=== PATIENT | male | born 1970 | race Caucasian/White ===

== ENCOUNTER 2025-01-18 17:02 | Emergency (ER) | payer OTHER, SELFPAY ==
[2025-01-18 17:11] VITALS: BP 187/131; PULSE 90; RESP 16; TEMP 36.4; O2SAT 98
--- NOTE | 2025-01-18 17:16 | ED_ITS ---
HPI - Extremity Injury (Upper) General Chief Complaint: Extremity Injury, Upper Stated Complaint: right arm pain Time Seen by Provider: 01/18/25 17:16 Source: patient, RN notes reviewed and old records reviewed Mode of arrival: ambulatory Limitations: no limitations History of Present Illness HPI narrative: Patient presents with complaints of right upper extremity pain that has been present for least 1 month. He has been trying to get into his doctor to get a rheumatology referral, has an appointment sometime next week. He reports that pain is becoming unbearable. He denies any recent injury or trauma. He does have some swelling to the right elbow and the right hand. He reports that he is taking more Tylenol than recommended each day for the past month. He does have a history of hypertension, he reports that he took all of his blood pressure medications today. Blood pressure is extremely elevated. He denies any dizziness, chest pain, shortness of breath. Related Data Home Medications ?Medication ?Instructions ?Recorded ?Confirmed ?Last Taken ?Type losartan 100 mg tablet 100 mg PO DAILY 08/04/24 Unknown History acetaminophen 650 mg 1,950 mg PO Q8H PRN pain 01/18/25 01/18/25 01/18/25 History tablet,extended release (Tylenol Arthritis Pain) allopurinol 300 mg tablet mg 01/18/25 Unknown History amlodipine 10 mg tablet mg 01/18/25 Unknown History amlodipine 5 mg tablet mg 01/18/25 Unknown History dapagliflozin propanediol 10 mg mg 01/18/25 Unknown History tablet (Farxiga) pramipexole 0.25 mg tablet mg 01/18/25 Unknown History Allergies Allergy/AdvReac Type Severity Reaction Status Date / Time No Known Allergies Allergy Verified 01/18/25 17:10 Review of Systems Review of Systems: All systems reviewed & are unremarkable except as noted in HPI and below Constitutional: Constitutional: Reports no additional constitutional complaints ENT: Reports system reviewed and no additional complaints, except as documented Cardiovascular: Cardiovascular: Reports no additional cardiovascular complaints Respiratory: Respiratory: Reports no additional respiratory complaints Gastrointestinal: Gastrointestinal: Reports no additional gastrointestinal complaints Musculoskeletal: Musculoskeletal: Reports no additional musculoskeletal complaints and Reports as per HPI [facility] Past Medical History Medical History GERD (gastroesophageal reflux disease) Cancer Arthritis Anxiety Family History Family History Father Pancreatic cancer Mother Brain cancer Social History Social History Smoking status: Unknown if ever smoked Alcohol intake: current Alcohol use details: 2-4 drinks every other month Substance use: current Substance use type: marijuana Do You Feel Safe in your Home?: Yes Lack of Transportation: No Lack of Food: Never True Current Housing: I Have Housing Concerned About Future Housing: No Difficulty Paying Gas/Electric Bills: No Difficulty Paying for Meds: No Currently Unemployed: No Education: Trade/Vocational Certificate Difficulty w/ Childcare or Family Care: No Comments At the time of my signature, I reviewed and agree with the nursing past medical, surgical, social, and family history. There is no relevant family history pertinent to the patient complaint. Exam Const: General: cooperative, no acute distress, alert and awake Orientation/consciousness: oriented to person, oriented to place and oriented to time HENMT: Head: normal to inspection Resp: Effort & Inspection: normal respiratory effort and able to speak in complete sentences Auscultation: clear to auscultation bilaterally, no crackles, no rales, no rhonchi and no wheezes Cardio: Palpation: normal PMI Rate: regular rate Rhythm: regular rhythm Heart sounds: S1 normal heart sound present and S2 normal heart sound present Neuro: General: oriented to person, oriented to place and oriented to time Cranial nerves: Yes CN's II-XII intact bilaterally Extrem: Right upper extremity: full ROM, elbow/forearm swelling of the olecranon and Extremity exam: right hand swelling of the dorsal hand Psych: Appearance: grossly normal Thought process: Normal thought process present Insight: Good insight present (Psych) Judgement: Good judgement present (Psych) Course Course Level of Care: Express Care Visit Vital Signs Vital signs: Vital Signs Temperature 97.6 F 01/18/25 17:11 Pulse Rate 90 01/18/25 17:11 Respiratory Rate 16 01/18/25 17:11 Blood Pressure 187/131 H 01/18/25 17:11 Pulse Oximetry 98 01/18/25 17:11 Oxygen Delivery Room Air 01/18/25 17:11 Temperature 97.6 F 01/18/25 17:11 Pulse Rate 90 01/18/25 17:11 Respiratory Rate 16 01/18/25 17:11 Blood Pressure 187/131 H 01/18/25 17:11 Pulse Oximetry 98 01/18/25 17:11 Oxygen Delivery Room Air 01/18/25 17:11 Reviewed Transfer Transfered to: [facility] Transportation: Other (Private vehicle, declines EMS) Transfer rationale: Hypertensive crisis Accepting physician: Josef VÁSQUEZ - Extremity Injury (Upper) MDM Narrative Medical decision making narrative: Patient with critically high blood pressure. Advised to go to emergency department. He is agreeable to doing so Discharge Plan Discharge Clinical Impression: Hypertensive crisis Upper extremity pain Qualifiers: Laterality: right Qualified Code(s): M79.601 - Pain in right arm Patient Disposition: Acute Care Hospital Condition: Stable Instructions: Antibiotic Form Patient Language: Italian Prescriptions: No Action amlodipine 5 mg tablet amlodipine 10 mg tablet pramipexole 0.25 mg tablet allopurinol 300 mg tablet dapagliflozin propanediol [Farxiga] 10 mg tablet losartan 100 mg tablet 100 mg PO DAILY Follow-up/Referrals: Diaz,MD Rob [Primary Care Provider] - Time of Disposition: 18:00
[2025-01-18 17:49] VITALS: BP 212/114; PULSE 90
[2025-01-18 17:50] VITALS: BP 204/100
== END 2025-01-18 18:07 | disposition short-term general hospital (02) ==
PROVIDERS: Emergency Provider Nurse Practitioner Family; PCP Internal Medicine
DX: I16.9 Hypertensive crisis, unspecified (principal); M79.601 Pain in right arm; K21.9 Gastro-esophageal reflux disease without esophagitis; M19.90 Unspecified osteoarthritis, unspecified site; Z85.9 Personal history of malignant neoplasm, unspecified
CPT/HCPCS: 99212; G0463

== ENCOUNTER 2025-01-18 18:34 | Emergency (ER) | payer OTHER, SELFPAY ==
[2025-01-18 18:50] VITALS: BP 187/117; PULSE 95; RESP 16; TEMP 36.7; O2SAT 99
--- NOTE | 2025-01-18 22:02 | PC.NURSE ---
Pt called multiple times to come back to a room with no answer.
--- OUTSIDE RECORDS SUMMARY | 2025-01-18 22:15 | XMS_ITS | Clinical Summary ---
Author Organization [address] Address [address] [place] [address] Care Team Providers Care Timekeeping Supervisor Name Role Phone Rob Perales MD Primary Care Provider + [phone] Allergies No known active allergies Medications carvediloL (COREG) 6.25 mg tablet Take 1 tablet (6.25 mg total) by mouth 2 (two) times a day with meals 180 tablet 3 4 03/03/20 25 Active atorvastatin (LIPITOR) 10 mg tablet Take 1 tablet (10 mg total) by mouth daily Active indomethacin (INDOCIN) 50 mg capsule Take 1 capsule (50 mg total) by mouth 2 (two) times a day as needed Active cholecalciferol (VITAMIN D-3) 5,000 unit capsule Take by mouth Active Viagra 100 mg tablet Take 1 TABLET 1 HOUR PRIOR TO SEXUAL ACTIVITY DIRECTED, BUT NOT TO EXCEED MORE THAN 1 IN 24 HOURS. MUST LAST 30 DAYS 8 Active tamsulosin (FLOMAX) 0.4 mg extended release capsuleIndicatio ns:Urolithiasis Take 1 capsule (0.4 mg total) by mouth daily 90 capsule 1 4 Active Additional Information Patient taking differently:0.4 mg oralAs needed, Indications: Urolithiasis, Reported on 09/03/2024 omega 3-tjy-mmr-fish oil (Fish OiL) 1,000 mg (120 mg-180 mg) capsule Take 2 capsules every day by oral route. 1 Active nortriptyline (PAMELOR) 25 mg capsule Take 1 capsule (25 mg total) by mouth nightly 30 capsule 5 4 Active losartan (COZAAR) 100 mg tablet Take 1 tablet (100 mg total) by mouth every morning 4 Active pramipexole (MIRAPEX) 0.25 mg tablet Take 1 tablet (0.25 mg total) by mouth daily 30 tablet 6 4 Active allopurinoL (ZYLOPRIM) 300 mg tablet Take 1 tablet (300 mg total) by mouth daily 90 tablet 3 4 09/03/20 25 Active dapagliflozin propanediol (FARXIGA) 10 mg tablet Take 1 tablet (10 mg total) by mouth daily 90 tablet 3 4 Active amLODIPine (NORVASC) 10 mg tablet Take 1 tablet (10 mg total) by mouth daily 90 tablet 3 4 09/17/20 25 Active Active Problems Problem Noted Date Diagnosed Date Solitary pulmonary nodule 07/30/2024 Cigarette nicotine dependence in remission 07/30 History of renal cell carcinoma 07/30/2024 Obstructive sleep apnea 07/30/2024 Periodic limb movement 07/30/2024 Renal cell carcinoma 04/29/2015 Overview (03/14/2018): Description: S/P Left Partial Nx 07/13/2014 - Clear Cell Type Gr II, 4.3 cm, (-)margins Encounters Date Type Department Care Team Description 12/04/2024 Telephone [facility] Nephrology at [place] [id number] [facility] [address] [place] [address] Kenneth Crowe MD 10/27/2024 Orders Only [facility] Neurology [address] [place] [address] [address] [place] [address] Esvin Means Si, MD 10/26/2024 Telephone [facility] Neurology [address] [place] [address] [address] [place] [address] Lenard Smith MD Medication Problem 10/19/2024 Telephone [facility] Neurology [address] [place] [address] [address] [place] [address] Lenard Smith MD from Last 3 Months Medical History Medical History Date Comments Personal history of other di seases of the musculoskeletal system and connective tissue Personal history of arthriti s - (Added by TW Conv) Personal history of other en docrine, nutritional and metabolic disease Personal history of gout - (Added by TW Conv) Personal history of urinary infection History of urinary tract infection - (Added by TW Conv) Family History Medical History Relation Name Comments Cancer Mother Family history of malignant neoplasm - (Added by TW Conv) Relation Name Status Comments Mother Social History Tobacco Use Types Packs/Day Years Used Date Smoking Tobacco: Former Passive Smoke Exposure: Never Smokeless Tobacco: Never Tobacco Cessation:Counseling Given: Not Answered AUDIT-C Answer Date Recorded Q1: How often do you have a drink containing alc ohol? Monthly or less 09/03/2024 Average Number of Drinks Not on file 024 Frequency of Binge Drinking Not on file 01/2024 Sex and Gender Information Value Date Recorded Sex Assigned at Not on file Legal Sex Male 9:59 AM [employer] Gender Identity Male 03/24/2024 2:50 PM CDT Sexual Orientation Straight 03/24/2024 2: 50 PM CDT Obstetrics History Last Filed Vital Signs Vital Sign Reading Time Taken Comments Blood Pressure 205/110 09/03/2024 11:33 AM CDT Pulse 73 09/03/2024 10:45 AM CDT Temperature 36.6 C (97.9 F) 09/03/2024 10:45 AM CDT Respiratory Rate 18 07/30/2024 2:26 PM CDT Oxygen Saturation 97% 07/30/2024 2:26 PM CDT Inhaled Oxygen Concentration - - Weight 90.7 kg (200 lb) 09/03/2024 10:45 AM CDT Height 175.3 cm (5' 9 ) 09/03/2024 10:45 AM CDT Body Mass Index 29.53 09/03/2024 10:45 AM CDT Plan of Treatment Health Maintenance Due Date Last Done Comments Colon Cancer Screening-Colonoscopy 1971 Depression Screening 1971 Hepatitis C Screening 1971 Prostate Cancer Screening-PSA 1971 DTaP/Tdap/Td Vaccine (1 - Tdap) 1982 Hepatitis B Screening 1989 Regular Well Visit/Exam 18-64 1989 Zoster Vaccine (1 of 2) 2021 Influenza Vaccine (#1) 2024 3, 09/11/2021 Pneumococcal vaccine <65 Aged Out No longer eligible based on patient's age to complete this topic Insurance [facility] Care Teams Timekeeping Supervisor Relationship Specialty Start Date End Date Rob Perales MD PCP - General Internal Medicine 03/03/24
--- OUTSIDE RECORDS SUMMARY | 2025-01-18 22:15 | XMS_ITS | Patient Health Summary ---
Author Organization [facility] Address [address] [place] [address] Care Team Providers Care Dispatcher Radioactive Waste Disposal Name Role Phone Tonya Andrade PA-C Primary Care Provider [phone] Note from [facility],non-owned Affiliates and Associated Physician Practices is amultiple site organization consisting of ambulatory clinics and hospital sitesin [place], [place], [place] and [place]. This disclosure is being madepursuant to the Care Everywhere program and may not contain all information available regarding this patient. Last updated 18.[facility] Allergies * Codeine(Skin Reactions) -Medium Criticality Medications * Be aware that medications may not be up to date on this document. Alwaysverify current medications with the patient. * DULoxetine (CYMBALTA) 30 MG capsule(Started 11/05/2017) 5 refills left * indomethacin (INDOCIN) 50 MG capsule(Started 10/03/2017) * losartan (COZAAR) 50 MG tablet(Started 10/08/2017) Take 50 mg by mouth DAILY. 12 refills left * hydroCHLOROthiazide (HYDRODIURIL) 25 MG tablet(Started 10/08/2017) 12 refills left * magnesium oxide (MAGNESIUM-OXIDE) 400 (241.3 MG) MG tablet(Started 10/08/2017) Take 400 mg by mouth DAILY. 12 refills left * Cholecalciferol (VITAMIN D3) 17185 UNITS TABS(Started 05/30/2017) Take by mouth. Active Problems Problem Noted Date Diagnosed Date Spinal stenosis of lumbar re gion with neurogenic claudication 06/06/2017 Type 2 diabetes mellitus with diabetic polyneuro ana 03/21/2017 Pain in right ankle 02/23/2016 Pain in left ankle 02/23/2016 Paresthesia of skin 02/23/2016 Social History Tobacco Use Types Packs/Day Years Used Date Smoking Tobacco: Former Cigarettes Q uit: 12/02/1994 Smokeless Tobacco: Never Alcohol Use Standard Drinks/Week Comments No 0 (1 standard drink = 0.6 oz pur e alcohol) Sex and Gender Information Value Date Recorded Sex Assigned at Not on file Gender Identity Not on file Sexual Orientation Not on file Last Filed Vital Signs Vital Sign Reading Time Taken Comments Blood Pressure 130/90 11/05/2017 11:18 AM JIGGER ARTISAN Pulse 60 11/05/2017 11:18 AM JIGGER ARTISAN Temperature 36.7 C (98 F) 11/05/2017 11:18 AM JIGGER ARTISAN Respiratory Rate 18 06/11/2017 8:03 AM CDT Oxygen Saturation 97% 06/11/2017 8:03 AM CDT Inhaled Oxygen Concentration - - Weight 94.8 kg (209 lb) 11/05/2017 11:18 AM JIGGER ARTISAN Height 177.8 cm (5' 10 ) 11/05/2017 11:18 AM JIGGER ARTISAN Body Mass Index 29.99 11/05/2017 11:18 AM JIGGER ARTISAN Procedures * BASIC METABOLIC PANEL (CALCIUM TOTAL)(Performed 06/11/2017) * CBC W AUTO DIFFERENTIAL(Performed 06/11/2017) * CBC W AUTO DIFFERENTIAL(Performed 06/11/2017) * XR ABD OBSTRUCTION SERIES 2VW(Performed 06/10/2017) * BASIC METABOLIC PANEL (CALCIUM TOTAL)(Performed 06/10/2017) * CBC W AUTO DIFFERENTIAL(Performed 06/10/2017) * CBC W AUTO DIFFERENTIAL(Performed 06/10/2017) * BASIC METABOLIC PANEL (CALCIUM TOTAL)(Performed 06/09/2017) * CBC W AUTO DIFFERENTIAL(Performed 06/09/2017) * CBC W AUTO DIFFERENTIAL(Performed 06/09/2017) * BASIC METABOLIC PANEL (CALCIUM TOTAL)(Performed 06/08/2017) * CBC W AUTO DIFFERENTIAL(Performed 06/08/2017) * CBC W AUTO DIFFERENTIAL(Performed 06/08/2017) * BASIC METABOLIC PANEL (CALCIUM TOTAL)(Performed 06/07/2017) * CBC W AUTO DIFFERENTIAL(Performed 06/07/2017) * CBC W AUTO DIFFERENTIAL(Performed 06/07/2017) * FL BENNY SURGERY(Performed 06/06/2017) * GLUCOSE ACCUCHECK(Performed 06/06/2017) * CROSSMATCH RBC LEUKOREDUCED(Performed 06/06/2017) * GLUCOSE ACCUCHECK(Performed 06/06/2017) * BASIC METABOLIC PANEL (CALCIUM TOTAL)(Performed 06/06/2017) * PTT SLH(Performed 06/06/2017) * PT-INR [facility](Performed 06/06/2017) * TYPE + SCREEN PANEL(Performed 06/06/2017) * BASIC METABOLIC PANEL (CALCIUM TOTAL)(Performed 05/30/2017) * URIC ACID BLOOD(Performed 05/30/2017) * EKG 12-LEAD(Performed 05/30/2017) * BASIC METABOLIC PANEL (CALCIUM TOTAL)(Performed 04/30/2017) * PTT [facility](Performed 04/30/2017) * PT-INR [facility](Performed 04/30/2017) * CBC W AUTO DIFFERENTIAL(Performed 04/30/2017) * ERYTHROCYTE SEDIMENTATION RATE(Performed 04/30/2017) * C-REACTIVE PROTEIN(Performed 04/30/2017) * URINALYSIS REFLEX TO MICROSCOPIC NO CULTURE(Performed 04/30/2017) * CULTURE URINE(Performed 04/30/2017) * XR KNEE RIGHT 3VW(Performed 04/30/2017) * XR CHEST 2VW(Performed 04/30/2017) * XR KNEE LEFT 3VW(Performed 04/30/2017) * CBC W AUTO DIFFERENTIAL(Performed 04/30/2017) * NEURONAL NUCLEAR ANTIBODY IGG(Performed 02/04/2017) * IMMUNOFIXATION BLOOD(Performed 02/04/2017) * PROTEIN ELECTROPHORESIS WO INTERP BLOOD(Performed 02/04/2017) * PROTEIN ELECTROPHORESIS URINE RANDOM(Performed 02/04/2017) * HEMOGLOBIN A1C(Performed 02/04/2017) * T4 FREE(Performed 02/04/2017) * VITAMIN B12(Performed 02/04/2017) * FOLATE(Performed 02/04/2017) * TSH(Performed 02/04/2017) * HEPATIC FUNCTION PANEL(Performed 02/04/2017) * XR CERVICAL SPINE 4 OR 5VW(Performed 01/30/2017) * C-REACTIVE PROTEIN(Performed 10/09/2016) * COMPREHENSIVE METABOLIC PANEL(Performed 10/09/2016) * ERYTHROCYTE SEDIMENTATION RATE(Performed 10/09/2016) * URINALYSIS REFLEX TO MICROSCOPIC NO CULTURE(Performed 10/09/2016) * CBC W AUTO DIFFERENTIAL(Performed 10/09/2016) * CULTURE URINE(Performed 10/09/2016) * CBC W AUTO DIFFERENTIAL(Performed 10/09/2016) * PROTEIN 14-3-3 BLOOD(Performed 02/27/2016) * LDH BLOOD(Performed 02/27/2016) * HEPATITIS C PCR PROGRESSIVE QL/QN(Performed 02/27/2016) * VITAMIN D 25-HYDROXY D2+D3(Performed 02/27/2016) * HEPATITIS B SURFACE ANTIGEN W RFLX CONFIRMATION(Performed 02/27/2016) * CYCLIC CITRULLINATED PEPTIDE(CCP) AB IGG(Performed 02/27/2016) * JESUS COMPREHENSIVE PLUS PROFILE(Performed 02/27/2016) * URIC ACID BLOOD(Performed 02/27/2016) * ALDOLASE(Performed 02/27/2016) * TSH HI LOW REFLEX FREE T4(Performed 02/27/2016) * CK BLOOD(Performed 02/27/2016) * CBC W AUTO DIFFERENTIAL(Performed 02/27/2016) * COMPREHENSIVE METABOLIC PANEL(Performed 02/27/2016) * ERYTHROCYTE SEDIMENTATION RATE(Performed 02/27/2016) * C-REACTIVE PROTEIN(Performed 02/27/2016) * URINALYSIS W/MICROSCOPIC NO CULTURE(Performed 02/27/2016) * VITAMIN B12 FOLATE PANEL(Performed 02/27/2016) * HLA TYPING B27(Performed 02/27/2016) * XR HAND RIGHT 3VW OR MORE(Performed 02/23/2016) * XR ELBOW LEFT 2VW(Performed 02/23/2016) * XR FOOT LEFT 3VW OR MORE(Performed 02/23/2016) * XR KNEE RIGHT 3VW(Performed 02/23/2016) * XR KNEE LEFT 3VW(Performed 02/23/2016) * XR SI JOINTS 2VW OR LESS(Performed 02/23/2016) * XR ELBOW RIGHT 2VW(Performed 02/23/2016) * XR HAND LEFT 3VW OR MORE(Performed 02/23/2016) * XR FOOT RIGHT 3VW OR MORE(Performed 02/23/2016) Results * (ABNORMAL) CBC W AUTO DIFFERENTIAL (06/11/2017 3:49 AM CDT) Only the most recent of15 resultswithin the time period is included. WBC 5.7 3.5 - 10.5 10 3/uL [facility] RBC 3.89(L) 4.30 - 5.70 10 6/uL [facility] Hemoglobin 11.4(L) 13.5 - 17.5 g/dL [facility] Hematocrit 33.0(L) 39.0 - 50.0 % [facility] MCV 84.8 81.0 - 97.0 fL [facility] MCH 29.3 28.0 - 34.0 pg [facility] MCHC 34.5 32.0 - 36.0 g/dL [facility] Platelet Count 187 150 - 400 10 3/uL [facility] RDW-SD 39.5 36.0 - 50.0 fL [facility] RDW-CV 12.9 11.2 - 14.8 % [facility] MPV 9.4 9.3 - 12.8 fL [facility] Neutrophils % 61.4 35.0 - 70.0 % [facility] Lymphocytes % 23.2 19.7 - 55.1 % [facility] Monocytes % 8.9 3.0 - 15.0 % [facility] Eosinophils % 6.1(H) 0.0 - 6.0 % [facility] Basophil % 0.4 0.0 - 1.5 % [facility] Neutrophils Absolute 3.5 1.6 - 7.0 10 3/uL [facility] Lymphocyte Absolute 1.3 0.8 - 2.9 10 3/uL [facility] Monocytes Absolute 0.51 0.14 - 0.66 10 3/uL [facility] Eosinophils Absolute 0.35(H) 0.00 - 0.22 10 3/uL [facility] Basophils Absolute 0.02 0.00 - 0.06 10 3/uL [facility] Immature Granulocytes % 0.2 0.0 - 1.0 % [facility] Blood specimen (specimen) BLOOD SPECIMEN / Unknown 06/11/2017 3:49 AM CDT 06/11/2017 4:15 AM CDT Prabhakar Otero MD LAB - HEMATOLOGY ORD ERABLES [facility] [address] [phone] * (ABNORMAL) BASIC METABOLIC PANEL (CALCIUM TOTAL) (06/11/2017 3:49 AM CDT) Only the most recent of8 resultswithin the time period is included. BUN 17 7 - 26 mg/dL [facility] Creatinine 1.4(H) 0.6 - 1.2 mg/dL [facility] Sodium 139 136 - 145 mmol/L [facility] Potassium 4.5 3.5 - 4.5 mmol/L [facility] Chloride 99 98 - 107 mmol/L [facility] CO2 29 22 - 29 mmol/L [facility] Glucose 143(H) 70 - 115 mg/dL [facility] Calcium 9.5 8.4 - 10.2 mg/dL [facility] Anion Gap 16 8 - 18 [facility] BUN/Creatinine Ratio 12 7 - 23 [facility] Osmolality Calculated 292 270 - 300 mOsm/kg [facility] eGFR 55(L) >60 mL/min/1.7 3 m2 [facility] Blood specimen (specimen) BLOOD SPECIMEN / Unknown 06/11/2017 3:49 AM CDT 06/11/2017 4:15 AM CDT Prabhakar Otero MD LAB - CHEMISTRY ADDIE FRANCES [facility] Organization Address City/State/[facility] Co de Phone Number [address] [phone] * XR ABD OBSTRUCTION SERIES 2VW (06/10/2017 9:29 AM CDT) Anatomical Region Laterality Modality Abdomen Other Impressions 06/10/2017 3:50 PM CDT IMPRESSION: Nonobstructive bowel gas pattern. Moderate stool. This report was electronically signed by EMMA TOMLINSON M.D. on 06/10/2017 3:50 PM . Narrative 06/10/2017 3:50 PM CDT Exam: PX ABD OBSTRUCTION SERIES Date: 06/10/2017 9:29 AM History: constipation, abdominal distension Comparison: None FINDINGS: There is no dilatation of bowel. Moderate stool is seen in the colon. Phleboliths are seen in the pelvis. No free air. Multilevel laminectomy changes are demonstrated. There is a midline staple line. Procedure Note Emma Tomlinson MD - 02/28/2018 Exam: PX ABD OBSTRUCTION SERIES Date: 06/10/2017 9:29 AM History: constipation, abdominal distension Comparison: None FINDINGS: There is no dilatation of bowel. Moderate stool is seen in thecolon. Phleboliths are seen in the pelvis. No free air. Multilevellaminectomy changes are demonstrated. There is a midline staple line. IMPRESSION IMPRESSION: Nonobstructive bowel gas pattern. Moderate stool. This report was electronically signed by EMMA TOMLINSON M.D. on 06/10/20173:50 PM . [employer]iki [employer] DIAGNOSTIC IMAGING O RDERABLES * FL BENNY SURGERY (06/06/2017 11:08 AM CDT) Anatomical Region Laterality Modality Other Narrative 06/06/2017 11:08 AM CDT Fluoroscopy was used for this exam. Please see the Operative report. Procedure Note ProviderDolores MD - 02/28/2018 Fluoroscopy was used for this exam. Please see the Operative report. Prabhakar Otero MD FLUOROSCOPY ORDERABL ES * (ABNORMAL) GLUCOSE ACCUCHECK (06/06/2017 10:47 AM CDT) Only the most recent of2 resultswithin the time period is included. Glucose, Fingerstick 140(H) 70-115mg/d L mg/dL [facility] [place]) Comment: Physician Notified Cycle Consultant: RENAY TAVERA 06/06/2017 10:4 7 AM CDT Prabhakar Otero MD LAB - CHEMISTRY ADDIE FRANCES Performing Organization Address [facility] [place]/[facility] Co de Phone Number [facility] [place]) * CROSSMATCH RBC LEUKOREDUCED (06/06/2017 6:29 AM CDT) 06/06/2017 6:29 AM CDT 06/06/2017 6:29 AM CDT Narrative [facility] - 06/06/2017 6:29 AM CDT # of Units->2 Prabhakar Otero MD LAB - BLOOD BANK ORD NANCYBLES Performing Organization Address City/[facility]/ZIP Co de Phone Number [facility] [address] * PTT [facility] (06/06/2017 6:21 AM CDT) Only the most recent of2 resultswithin the time period is included. APTT 29.3 23.0 - 38.4 Seconds [facility] Comment:Suggested therapeuti c range for full dose I.V. heparin therapy for venous thromboembolism is 66.0-91.0 seconds. Blood specimen (specimen) BLOOD SPECIMEN / Unknown 06/06/2017 6:21 AM CDT 06/06/2017 6:28 AM CDT Narrative [facility] - 06/06/2017 6:59 AM CDT Please ensure that the aPTT specimen is received in the clinical lab within 1 hour of collection if it is used for therapeutic heparin monitoring. Processing of heparinized specimens older than 1 hour may result in inaccurate test results. Is patient on Heparin, Argatroban or Dabigatran?->N Prabhakar Otero MD LAB - COAGULATION OR DERABLES Performing Organization Address City/State/[facility] Co de Phone Number [facility] [address] [place] [address] * PT-INR [facility] (06/06/2017 6:21 AM CDT) Only the most recent of2 resultswithin the time period is included. PT 14.1 12.1 - 14.8 Seconds [facility] INR 1.1 See Comment [facility] Comment: Suggested therapeutic range for low-intensity coumadin therapy for venous thromboembolism prophylaxis is an INR of 2.0-3.0. For high risk patients (Mitral Valve Prosthesis, Atrial Fibrillation, history of TIA/stroke), suggested prophylactic therapeutic range is an INR of 2.5-3.5. Blood specimen (specimen) BLOOD SPECIMEN / Unknown 06/06/2017 6:21 AM CDT 06/06/2017 6:28 AM CDT Narrative [facility] - 06/06/2017 6:58 AM CDT Is patient on Heparin, Argatroban or Dabigatran?->N Prabhakar Otero MD LAB - COAGULATION OR DERABLES Performing Organization Address City/[facility]/ZIP Co de Phone Number [address] [phone] * TYPE + SCREEN PANEL (06/06/2017 6:20 AM CDT) Typem O POS [facility] Antibody Screen NEG [facility] Blood specimen (specimen) 06/06/2017 6:20 AM CDT 06/06/2017 6:28 AM CDT Prabhakar Otero MD LAB - BLOOD BANK ORD ERABLES Performing Organization Address [facility] [place]/[facility] Co de Phone Number [facility] [address] [place] [address] * (ABNORMAL) URIC ACID BLOOD (05/30/2017 3:21 PM CDT) Only the most recent of2 resultswithin the time period is included. Uric Acid 11.4(H) 2.6 - 7.2 mg/dL [facility] Blood specimen (specimen) BLOOD SPECIMEN / Unknown 05/30/2017 3:21 PM CDT 05/30/2017 5:08 PM CDT Bob Pressley MD LAB - CHEMISTRY ADDIE FRANCES Performing Organization Address [facility] [place]/[facility] Co de Phone Number [address] [phone] * EKG 12-LEAD (05/30/2017 12:00 AM CDT) 05/30/2017 Lenard Calix MD ECG ORDERABLES Performing Organization Address [facility] [place]/[facility]/ZIP Co de Phone Number [facility] * (ABNORMAL) URINALYSIS REFLEX TO MICROSCOPIC NO CULTURE (04/30/2017 2:48 PM CDT) Only the most recent of2 resultswithin the time period is included. Color UA Yellow Straw, Yellow, Colorless, Light Yellow [facility] Clarity UA Clear Clear [facility] Specific [place] UA 1.016 1.001 - 1.030 [facility] pH UA 5.0 5.0 - 8.0 [facility] Protein UA Negative <=20 mg/dL [facility] Glucose UA Negative Negative mg/dL [facility] Ketone UA Negative Negative mg/dL [facility] Bilirubin UA Negative Negative mg/dL [facility] Blood UA Negative Negative [facility] Nitrite UA Negative Negative [facility] Leukocyte Esterase Negative Negative [facility] Urobilinogen UA <2.0 <2.0 mg/dL [facility] RBC UA 1 0 - 8 /HPF [facility] WBC UA 1 0 - 2 /HPF [facility] Mucus UA Few(A) None /LPF [facility] Urine specimen (specimen) URINE SPECIMEN OBTAINED BY CLEAN CATCH PROCEDURE / Unknown 04/30/2017 2:48 PM CDT 04/30/2017 3:37 PM CDT Bob Pressley MD LAB - URINALYSIS ORD ERABLES Performing Organization Address City/[facility]/ZIP Co de Phone Number [address] [phone] * (ABNORMAL) C-REACTIVE PROTEIN (04/30/2017 2:48 PM CDT) Only the most recent of3 resultswithin the time period is included. C-Reactive Protein 2.8(H) <=0.5 mg/dL [facility] Blood specimen (specimen) BLOOD SPECIMEN / Unknown 04/30/2017 2:48 PM CDT 04/30/2017 3:37 PM CDT Bob Pressley MD LAB - CHEMISTRY ORDE RABKIM [address] [phone] * CULTURE URINE (04/30/2017 2:48 PM CDT) Only the most recent of2 resultswithin the time period is included. Culture Urine <10,000 CFU/ML urogenital doe [facility] Comment: Urine specimen (specimen) URINE / Unknown 04/30/2017 2:48 PM CDT 04/30/2017 3:35 PM CDT Narrative [facility] - 05/02/2017 9:23 AM CDT Specimen Type->Urine Bob Pressley MD LAB - MICROBIOLOGY O RDERABLES Performing Organization Address [facility] [place]/[facility]/ZIP Co de Phone Number [address] [phone] * ERYTHROCYTE SEDIMENTATION RATE (04/30/2017 2:48 PM CDT) Only the most recent of3 resultswithin the time period is included. Erythrocyte Sedimentation Rate Westergren 5 0 - 15 MM/HR [facility] Blood specimen (specimen) BLOOD SPECIMEN / Unknown 04/30/2017 2:48 PM CDT 04/30/2017 3:37 PM CDT Bob Pressley MD LAB - HEMATOLOGY ORD ERABLES Performing Organization Address [facility] [place]/[facility] Co de Phone Number [address] [phone] * XR KNEE RIGHT 3VW (04/30/2017 2:48 PM CDT) Only the most recent of2 resultswithin the time period is included. Anatomical Region Laterality Modality Lower Extremity Other Impressions 05/01/2017 4:50 PM CDT Impression: 1. Mild osteoarthritis in both knees, left greater than right, not significantly progressed. Left knee effusion. Report dictated by Cristiane Davis MD. (Vocational Technical Education Director). This report was approved by Cristiane Davis M.D. on 05/01/2017 1:53 PM . I, Dr. JOHN SAGE MD have personally reviewed and interpreted this examination/study. This report was electronically signed by JOHN SAGE MD on 05/01/2017 4:50 PM . Narrative 05/01/2017 4:50 PM CDT Exam: XR KNEE RIGHT 3 VW, XR KNEE LEFT 3 VW Date: 04/30/2017; 2:48 PM History: 46-year-old male with joint pains. Comparison: Right and left knee radiographs from 02/23/2016. Findings: RIGHT KNEE: No acute fracture or dislocation is seen. Minimal tricompartment degenerative change is seen without joint space narrowing and mild. There is mild spurring of the tibial spines. There is minimal patellofemoral osteophyte formation. No erosions are seen. Bone density is normal. There is no effusion. LEFT KNEE: No acute fracture or dislocation is present. There are mild degenerative change in the patellofemoral compartment with small osteophyte formation, but no joint space narrowing. The medial and lateral compartment joint spaces are normal. Bone density is normal. No erosions are seen. A small superior patellar enthesophyte is present. A moderate effusion is present. Procedure Note John Sage MD - 02/28/2018 Exam: XR KNEE RIGHT 3 VW, XR KNEE LEFT 3 VW Date: 04/30/2017; 2:48 PM History: 46-year-old male with joint pains. Comparison: Right and left knee radiographs from 02/23/2016. Findings: RIGHT KNEE: No acute fracture or dislocation is seen. Minimal tricompartmentdegenerative change is seen without joint space narrowing and mild. Thereis mild spurring of the tibial spines. There is minimal patellofemoralosteophyte formation. No erosions are seen. Bone density is normal. There is no effusion. LEFT KNEE: No acute fracture or dislocation is present. There are mild degenerativechange in the patellofemoral compartment with small osteophyte formation,but no joint space narrowing. The medial and lateral compartment jointspaces are normal. Bone density is normal. No erosions are seen. A small superior patellar enthesophyte ispresent. A moderate effusion is present. IMPRESSION Impression: 1. Mild osteoarthritis in both knees, left greater than right, notsignificantly progressed. Left knee effusion. Report dictated by Cristiane Davis MD. (Vocational Technical Education Director). This report was approved by Cristiane Davis M.D. on 05/01/2017 1:53 PM. I, Dr. JOHN SAGE MD have personally reviewed and interpreted thisexamination/study. This report was electronically signed by JOHN SAGE MD on 05/01/20174:50 PM . Bob Pressley MD DIAGNOSTIC IMAGING O RDERABLES * XR KNEE LEFT 3VW (04/30/2017 2:48 PM CDT) Only the most recent of2 resultswithin the time period is included. Anatomical Region Laterality Modality Lower Extremity Other Impressions 05/01/2017 4:50 PM CDT Impression: 1. Mild osteoarthritis in both knees, left greater than right, not significantly progressed. Left knee effusion. Report dictated by Cristiane Davis MD. (Vocational Technical Education Director). This report was approved by Cristiane Davis M.D. on 05/01/2017 1:53 PM . I, Dr. JOHN SAGE MD have personally reviewed and interpreted this examination/study. This report was electronically signed by JOHN SAGE MD on 05/01/2017 4:50 PM . Narrative 05/01/2017 4:50 PM CDT Exam: XR KNEE RIGHT 3 VW, XR KNEE LEFT 3 VW Date: 04/30/2017; 2:48 PM History: 46-year-old male with joint pains. Comparison: Right and left knee radiographs from 02/23/2016. Findings: RIGHT KNEE: No acute fracture or dislocation is seen. Minimal tricompartment degenerative change is seen without joint space narrowing and mild. There is mild spurring of the tibial spines. There is minimal patellofemoral osteophyte formation. No erosions are seen. Bone density is normal. There is no effusion. LEFT KNEE: No acute fracture or dislocation is present. There are mild degenerative change in the patellofemoral compartment with small osteophyte formation, but no joint space narrowing. The medial and lateral compartment joint spaces are normal. Bone density is normal. No erosions are seen. A small superior patellar enthesophyte is present. A moderate effusion is present. Procedure Note John Sage MD - 02/28/2018 Exam: XR KNEE RIGHT 3 VW, XR KNEE LEFT 3 VW Date: 04/30/2017; 2:48 PM History: 46-year-old male with joint pains. Comparison: Right and left knee radiographs from 02/23/2016. Findings: RIGHT KNEE: No acute fracture or dislocation is seen. Minimal tricompartmentdegenerative change is seen without joint space narrowing and mild. Thereis mild spurring of the tibial spines. There is minimal patellofemoralosteophyte formation. No erosions are seen. Bone density is normal. There is no effusion. LEFT KNEE: No acute fracture or dislocation is present. There are mild degenerativechange in the patellofemoral compartment with small osteophyte formation,but no joint space narrowing. The medial and lateral compartment jointspaces are normal. Bone density is normal. No erosions are seen. A small superior patellar enthesophyte ispresent. A moderate effusion is present. IMPRESSION Impression: 1. Mild osteoarthritis in both knees, left greater than right, notsignificantly progressed. Left knee effusion. Report dictated by Cristiane Davis MD. (Vocational Technical Education Director). This report was approved by Cristiane Davis M.D. on 05/01/2017 1:[address] JOHN Salmon MD have personally reviewed and interpreted thisexamination/study. This report was electronically signed by JOHN SAGE MD on 05/01/20174:50 PM . Bob Pressley MD DIAGNOSTIC IMAGING O RDERABLES * XR CHEST 2VW (04/30/2017 2:48 PM CDT) Anatomical Region Laterality Modality Chest Other Impressions 05/01/2017 8:49 AM CDT IMPRESSION: No acute pulmonary process. Mild degenerative changes are seen in the thoracic spine without evidence of diffuse idiopathic skeletal hyperostosis. Report dictated by Melani Witt MD (oral and maxillofacial surgery resident). This report was approved by Selena Witt M.D. on 05/01/2017 8:[address] GOLDEN Salmon MD have personally reviewed and interpreted this examination/study. This report was electronically signed by Dr. GOLDEN FLORES MD on 05/01/2017 8:49 AM . Narrative 05/01/2017 8:49 AM CDT EXAMINATION: XR CHEST PA AND LATERAL HISTORY: Evaluate for DISH COMPARISON: No prior study is available for comparison at the time of this dictation. FINDINGS: There is no focal consolidation, pleural effusion, or pneumothorax. The cardiomediastinal silhouette is normal. Mild degenerative changes are seen in the thoracic spine without evidence of diffuse idiopathic skeletal hyperostosis. Procedure Note Golden Flores MD - 02/28/2018 EXAMINATION: XR CHEST PA AND LATERAL HISTORY: Evaluate for DISH COMPARISON: No prior study is available for comparison at the time ofthis dictation. FINDINGS: There is no focal consolidation, pleural effusion, or pneumothorax. Thecardiomediastinal silhouette is normal. Mild degenerative changes are seenin the thoracic spine without evidence of diffuse idiopathic skeletalhyperostosis. IMPRESSION IMPRESSION: No acute pulmonary process. Mild degenerative changes are seen in the thoracic spine without evidenceof diffuse idiopathic skeletal hyperostosis. Report dictated by Melani Witt MD (oral and maxillofacial surgery resident). This report was approved by Selena Witt M.D. on 05/01/2017 8:01AM . I, Dr. Dr. GOLDEN FLORES MD have personally reviewed and interpreted thisexamination/study. This report was electronically signed by Dr. GOLDEN FLORES MD on05/01/2017 8:49 AM . Bob Pressley MD DIAGNOSTIC IMAGING O RDERABLES * PROTEIN ELECTROPHORESIS WO INTERP BLOOD (02/04/2017 9:46 AM JIGGER ARTISAN) Interpretation Serum PE Normal Pattern Normal Pattern [facility] Comment: Serum protein electrophoresis shows characteristic bands corresponding to albumin, alpha and beta globulins and polyclonal immunoglobulins. No monoclonal immunoglobulins detected. Non-secretory myeloma (NSM) and light chain only myeloma cannot be excluded on the basis of this result. Recommend serum free light chain measurements for complete evaluation of multiple myeloma. Measurement of serum free kappa and lambda immunoglobulin light chains can identify all patients with light chain only myeloma and up to 70% of patients with NSM. Lucia Leija, PhD *The electrophoresis pattern and the interpretation have been reviewed and verified by the teaching physician. Protein Total 7.1 6.0 - 8.3 g/dL [facility] Albumin 4.9 3.3 - 5.6 g/dL [facility] Alpha-1 Globulins 0.2 0.1 - 0.3 g/dL [facility] Alpha-2 Globulins 0.7 0.5 - 1.0 g/dL [facility] Beta Globulins 0.7 0.6 - 1.1 g/dL [facility] Gamma Globulins 0.7 0.6 - 1.6 g/dL [facility] Blood specimen (specimen) BLOOD SPECIMEN / Unknown 02/04/2017 9:46 AM JIGGER ARTISAN 02/04/2017 10:26 AM JIGGER ARTISAN Vicky Singh MD LAB - CHEMISTRY ORDE RABKIM Performing Organization Address City/[facility]/ZIP Co de Phone Number [address] [phone] * NEURONAL NUCLEAR ANTIBODY IGG (02/04/2017 9:46 AM JIGGER ARTISAN) KEMAR IgG Immunoblot None Detected None Detected [facility] ([facility]) Comment: INTERPRETIVE INFORMATION: Neuronal Nuclear Abs IgG, Immunoblot This test detects IgG antineuronal antibodies to Hu, Ri, and Yo antigens. Only the antibodies detected are reported in the result field. Antineuronal antibodies serve as markers that aid in discriminating between a true paraneoplastic neurological disorder (PND) and other inflammatory disorders of the nervous system. Anti-Hu (antineuronal nuclear antibody, type I) is associated with small-cell lung cancer. Anti-Ri (antineuronal nuclear antibody, type II) is associated with neuroblastoma in children and with fallopian tube and breast cancer in adults. Anti-Yo (anti-Purkinje cell cytoplasmic antibody) is associated with ovarian and breast cancer. The presence of one or more of these antineuronal antibodies supports a clinical diagnosis of PND and should lead to a focused search for the underlying neoplasm. Test developed and characteristics determined by [facility]. See Compliance Statement D: [email or web address] Performed by [facility], [address] [place] [id number] [email or web address], Billy Alanis MD, Lab. Director Blood specimen (specimen) BLOOD SPECIMEN / Unknown 02/04/2017 9:46 AM JIGGER ARTISAN 02/04/2017 10:26 AM [facility]IG[facility] ARTISAN Vicky Singh MD LAB - SEROLOGY ORDER NAHUN [facility] ([place]) * IMMUNOFIXATION (02/04/2017 9:46 AM JIGGER ARTISAN) Immunofixation Serum Normal Pattern Normal Pattern [facility] Comment: Serum immunofixation electrophoresis shows polyclonal IgG, IgA, and IgM immunoglobulins. No monoclonal immunoglobulins detected. Non-secretory myeloma (NSM) cannot be excluded on the basis of this result. Measurements of serum free kappa and lambda immunoglobulin light chains can identify up to 70% of patients with NSM. Lucia Leija, PhD *The electrophoresis pattern and the interpretation have been reviewed and verified by the teaching physician. Blood specimen (specimen) BLOOD SPECIMEN / Unknown 02/04/2017 9:46 AM JIGGER ARTISAN 02/04/2017 10:26 AM JIGGER ARTISAN Vicky Singh MD LAB - CHEMISTRY ORDE RABLES Performing Organization Address [facility] [place]/[facility] Co de Phone Number [address] [phone] * PROTEIN ELECTROPHORESIS URINE RANDOM (02/04/2017 9:46 AM JIGGER ARTISAN) Interpretation Urine PE See Comment Normal Pattern [facility] Comment: Urine protein electrophoresis shows a prominent band corresponding to albumin with small amounts of other nonspecific proteinuria. No monoclonal immunoglobulins detected. Non-secretory myeloma (NSM) cannot be excluded on the basis of this result. Measurements of serum free kappa and lambda immunoglobulin light chains can identify up to 70% of patients with NSM. Lucia Leija, PhD Protein Urine 10 Not Established mg/dL [facility] Urine specimen (specimen) 02/04/2017 9:46 AM JIGGER ARTISAN 02/04/2017 10:26 AM JIGGER ARTISAN Vicky Singh MD LAB - URINE CHEMISTR Y ORDERABLES Performing Organization Address [facility] [place]/[facility]/ZIP Co de Phone Number [address] [phone] * HEMOGLOBIN A1C (02/04/2017 9:46 AM JIGGER ARTISAN) Hemoglobin A1c 6.1 4.4 - 6.3 % [facility] Estimated Average Glucose 128 mg/dL [facility] Comment: HbA1c Interpretation: Treatment target values recommended by ADA and other clinical organizations should be used to evaluate metabolic control in patients. Treatment Target Values: Normal : < 5.7% Pre-diabetes: 5.7-6.4% Diabetes: Equal to or greater than 6.5% Reference: [place] [employer] Standards of Care in Diabetes -2014 In patients 70 years and older consider HbA1c target range of 7.0-7.5% Reference: Diabetes Mellitus in Older People: Position Statement on behalf of the International Association of Gerontology and Geriatrics (IAGG), the Diabetes Working Democrat for Older People (EDWPOP), and the International Task Force of Experts in Diabetes. Yehuda Garcia, et al. J [place]. 2012 Test results diagnostic of diabetes should be repeated for confirmation. The Tosoh G8 assay for the measurement of HbA1c is a National Glycohemoglobin Standardization Program (NGSP)certified method. Results for patients with HbE disease should be interpreted with caution as this hemoglobinopathy has been shown to interfere with the Tosoh G8 assay. Blood specimen (specimen) BLOOD SPECIMEN / Unknown 02/04/2017 9:46 AM JIGGER ARTISAN 02/04/2017 10:26 AM JIGGER ARTISAN Vicky Singh MD [facility] Organization Address City/State/ZIP Co de Phone Number [address] [phone] * HEPATIC FUNCTION PANEL (02/04/2017 9:46 AM JIGGER ARTISAN) Protein Total 7.4 6.0 - 8.3 g/dL [facility]AT[facility] Albumin 4.1 3.4 - 5.0 g/dL [facility] Bilirubin Total 0.6 0.2 - 1.2 mg/dL [facility] Bilirubin Conjugated 0.2 0.0 - 0.5 mg/dL [facility] Bilirubin Unconjugated 0.4 Unconjugated Bilirubin is a calculated value: Reference ranges have not been established. mg/dL [facility] Alkaline Phosphatase 96 40 - 150 Units/L [facility] ALT 24 0 - 55 Units/L [facility] AST 29 5 - 34 Units/L [facility] Albumin/Globulin Ratio 1.2 1.1 - 2.3 [facility] Blood specimen (specimen) BLOOD SPECIMEN / Unknown 02/04/2017 9:46 AM JIGGER ARTISAN 02/04/2017 10:26 AM JIGGER ARTISAN Vicky Singh MD LAB - CHEMISTRY ADDIE FRANCES Performing Organization Address City/[facility]/ZIP Co de Phone Number [address] [phone] * FOLATE (02/04/2017 9:46 AM JIGGER ARTISAN) Folate 14.6 7.0 - 31.4 ng/mL [facility] Blood specimen (specimen) BLOOD SPECIMEN / Unknown 02/04/2017 9:46 AM JIGGER ARTISAN 02/04/2017 10:26 AM JIGGER ARTISAN Vicky Singh MD LAB - CHEMISTRY ADDIE FRANCES Performing Organization Address [facility] [place]/[facility]/ZIP Co de Phone Number [address] [phone] * VITAMIN B12 (02/04/2017 9:46 AM JIGGER ARTISAN) Vitamin B12 629 213 - 816 pg/mL [facility] Blood specimen (specimen) BLOOD SPECIMEN / Unknown 02/04/2017 9:46 AM JIGGER ARTISAN 02/04/2017 10:26 AM JIGGER ARTISAN Vicky Singh MD LAB - CHEMISTRY ADDIE FRANCES Performing Organization Address City/[facility]/ZIP Co de Phone Number [address] [phone] * TSH (02/04/2017 9:46 AM JIGGER ARTISAN) TSH 0.768 0.350 - 4.940 uIU/mL [facility] Blood specimen (specimen) BLOOD SPECIMEN / Unknown 02/04/2017 9:46 AM JIGGER ARTISAN 02/04/2017 10:26 AM JIGGER ARTISAN Vicky Singh MD LAB - CHEMISTRY ADDIE FRANCES [address] [phone] * T4 FREE (02/04/2017 9:46 AM JIGGER ARTISAN) T4 Free 1.0 0.7 - 1.5 ng/dL [facility] Blood specimen (specimen) BLOOD SPECIMEN / Unknown 02/04/2017 9:46 AM JIGGER ARTISAN 02/04/2017 10:26 AM JIGGER ARTISAN Vicky Singh MD LAB - CHEMISTRY ADDIE FRANCES [address] [phone] * XR CERVICAL SPINE 4 OR 5VW (01/30/2017 9:43 AM JIGGER ARTISAN) Anatomical Region Laterality Modality Spine Other Impressions 01/30/2017 12:59 PM JIGGER ARTISAN IMPRESSION: Mild lower cervical degenerative disc disease. This report was electronically signed by JOHN SAGE MD on 01/30/2017 12:59 PM . Narrative 01/30/2017 12:59 PM JIGGER ARTISAN Exam: XR SPINE CERVICAL 4 VW MIN History: spinal stenosis Comparison: None. Findings: There is no fracture or subluxation. Alignment is maintained on the flexion and extension views although there is limited mobility. There is mild lower cervical degenerative disc disease. There is degenerative change at the C1-C2 articulation. Procedure Note John Sage MD - 02/28/2018 Exam: XR SPINE CERVICAL 4 VW MIN History: spinal stenosis Comparison: None. Findings: There is no fracture or subluxation. Alignment is maintained on theflexion and extension views although there is limited mobility. There ismild lower cervical degenerative disc disease. There is degenerativechange at the C1-C2 articulation. IMPRESSION IMPRESSION: Mild lower cervical degenerative disc disease. This report was electronically signed by JOHN SAGE MD on 01/30/201712:59 PM . Prabhakar Otero MD DIAGNOSTIC IMAGING O RDERABLES * (ABNORMAL) COMPREHENSIVE METABOLIC PANEL (10/09/2016 2:50 PM JIGGER ARTISAN) Only the most recent of2 resultswithin the time period is included. BUN 17 7 - 26 mg/dL [facility] Creatinine 1.2 0.6 - 1.2 mg/dL [facility] Sodium 143 136 - 145 mmol/L [facility] Potassium 4.6(H) 3.5 - 4.5 mmol/L [facility] Chloride 106 98 - 107 mmol/L [facility] CO2 27 22 - 29 mmol/L [facility] Glucose 113 70 - 115 mg/dL [facility] Calcium 9.6 8.4 - 10.2 mg/dL [facility] Protein Total 7.2 6.0 - 8.3 g/dL [facility] Albumin 4.0 3.4 - 5.0 g/dL [facility] Bilirubin Total 0.5 0.2 - 1.2 mg/dL [facility] Alkaline Phosphatase 100 40 - 150 Units/L [facility] ALT 19 0 - 55 Units/L [facility] AST 20 5 - 34 Units/L [facility] Anion Gap 15 8 - 18 [facility] BUN/Creatinine Ratio 14 7 - 23 [facility] Osmolality Calculated 298 270 - 300 mOsm/kg [facility] Albumin/Globulin Ratio 1.3 1.1 - 2.3 [facility] eGFR >60 >60 mL/min/1.7 3 m2 [facility] Blood specimen (specimen) BLOOD SPECIMEN / Unknown 10/09/2016 2:50 PM JIGGER ARTISAN 10/09/2016 3:16 PM JIGGER ARTISAN Bob Pressley MD LAB - CHEMISTRY ADDIE FRANCES [address] [phone] * (ABNORMAL) VITAMIN D 25-HYDROXY D2+D3 BY TANDEM MASS (02/27/2016 1:03 PM CDT) Vitamin D, 25 Hydroxy Total 19(L) 30 - 100 ng/mL [facility] ([facility]) Comment: Vitamin D Status 25-OH Vitamin D: Deficiency: <20 ng/mL Insufficiency: 20 - 29 ng/mL Optimal: > or = 30 ng/mL For 25-OH Vitamin D testing on patients on D2-supplementation and patients for whom quantitation of D2 and D3 fractions is required, the QuestAssureD(TM) 25-OH VIT D, (D2,D3), LC/MS/MS is recommended: order code 84591 (patients >2yrs). For more information on this test, go to: http://education.[employer]/faq/DMU085 (This link is being provided for informational/educational purposes only.) Test Performed at: [facility] [id number] [place] [address] CHEO FREEMAN DO,MPH Blood specimen (specimen) BLOOD SPECIMEN / Unknown 02/27/2016 1:03 PM CDT 02/27/2016 1:04 PM CDT Bob Pressley MD LAB - CHEMISTRY ADDIE FRANCES [facility] Organization Address City/State/ZIP Co de Phone Number [facility] ([facility]) * (ABNORMAL) JESUS COMPREHENSIVE PLUS PROFILE (02/27/2016 1:03 PM CDT) JESUS Screen POSITIVE(A) NEGATIVE [facility] ([facility]) JESUS Titer #1 <1:40 titer [facility] ([facility]) Comment: Reference Ranges for Anti-Nuclear Ab Titer: <1:40 Negative 1:40-1:80 Low Antibody Level >1:80 Elevated Antibody Level JESUS Pattern #1 NONE DETECTED [facility] ([facility]) Comment: A positive ANAchoice (TM) and a negative JESUS-IFA may still suggest the presence of autoimmune antibodies. Since different test methodologies possess different sensitivities, testing for specific SHRUTHI and DS-DNA antibodies should be considered if clinically indicated. A positive JESUS result may be seen in a variety of diseases and healthy individuals. Its interpretation depends on clinical findings and other laboratory data. Rheumatoid Factor 8 <14 IU/mL [facility] ([facility]) dsDNA Antibody Crithidia IFA NEGATIVE NEGATIVE [facility] ([facility]) dsDNA Antibody Crithidia Titer TNP-Reflex testing not required. [facility] ([facility]) Comment: SHRUTHI Pastrana (SM) Antibody <1.0 NEG <1.0 NEGATIVE AI [facility] ([facility]) SM/MARKETING FORECASTER Antibody <1.0 NEG <1.0 NEGATIVE AI [facility]) Sjogren's Antibodies (SSA) <1.0 NEG <1.0 NEGATIVE AI [facility]) Sjogren's Antibodies (SSB) <1.0 NEG <1.0 NEGATIVE AI [facility]) SHRUTHI SCL-70 Antibody <1.0 NEG <1.0 NEGATIVE AI [facility] ([facility]) Comment: Test Performed at: [facility] [address] GILBERTO ALSTON MD PHD 02/27/2016 1:03 PM CDT 02/27/2016 1:04 PM CDT Bob Pressley MD LAB - CHEMISTRY ADDIE FRANCES Performing Organization Address [facility] [place]/[facility] de Phone Number [facility] ([facility]) * PROTEIN 14-3-3 BLOOD (02/27/2016 1:03 PM CDT) 14.3.3 eta Protein <0.2 <0.2 ng/mL [facility] ([facility]) Comment: This test was developed and its analytical performance characteristics have been determined by [facility]. It has not been cleared or approved by the U.S. Food and Drug Administration. The FDA has determined that such clearance or approval is not necessary. This assay has been validated pursuant to the CLIA regulations and is used for clinical purposes. Test Performed at: [facility] [id number] [place] [address] GILBERTO ALSTON MD PHD 02/27/2016 1:03 PM CDT 02/27/2016 1:04 PM CDT Bob Pressley MD LAB - CHEMISTRY ADDIE FRANCES Performing Organization Address [facility] [place]/[facility] Co de Phone Number [facility] ([facility]) * URINALYSIS W/MICROSCOPIC NO CULTURE (02/27/2016 1:03 PM CDT) Color UA YELLOW YELLOW [facility] ([facility]) Appearance CLEAR CLEAR [facility]) Specific [place] UA 1.016 1.001 - 1.035 [facility] ([facility]) pH Urine 5.0 5.0 - 8.0 [facility]) Glucose UA NEGATIVE NEGATIVE [facility] ([facility]) Bilirubin UA NEGATIVE NEGATIVE [facility] ([facility]) Ketone UA NEGATIVE NEGATIVE [facility] ([facility]) Occult Blood NEGATIVE NEGATIVE [facility] ([facility]) Protein UA NEGATIVE NEGATIVE [facility] ([facility]) Nitrite UA NEGATIVE NEGATIVE [facility] ([facility]) Leukocyte Esterase NEGATIVE NEGATIVE [facility] ([facility]) WBC Urine NONE SEEN < OR = 5 /HPF [facility] ([facility]) RBC Urine NONE SEEN < OR = 2 /HPF [facility]) Squamous Epithelial Cells UA NONE SEEN < OR = 5 /HPF [facility]) Bacteria UA NONE SEEN NONE SEEN /HPF [facility] ([facility]) Hyaline Casts UA NONE SEEN NONE SEEN /LPF [facility] ([facility]) Comment: Test Performed at: [facility] [address] [place] [address] CHEO FREEMAN DO,MPH Urine specimen (specimen) URINE SPECIMEN OBTAINED BY CLEAN CATCH PROCEDURE / Unknown 02/27/2016 1:03 PM CDT 02/27/2016 1:04 PM CDT Bob Pressley MD LAB - URINALYSIS ORD ERABLES [facility] ([facility]) * HEPATITIS C PCR PROGRESSIVE QL/QN (02/27/2016 1:03 PM CDT) Pathologist [facility] Hepatitis C Antibody NON-REACTI VE NON-REACT FOX [facility] ([facility]) Signal/Cutoff 0.02 <1.00 [facility] ([facility]) Comment: Test Performed at: [facility] [address] [facility] [place] [address] CHEO FREEMAN DO,MPH 02/27/2016 1:03 PM CDT 02/27/2016 1:04 PM CDT Bob Pressley MD LAB - SEROLOGY ORDER NAHUN [facility] ([facility]) * TSH HI LOW REFLEX FREE T4 (02/27/2016 1:03 PM CDT) Pathologist [facility] TSH 0.47 0.40 - 4.50 mIU/L [facility] ([facility]) Comment: Test Performed at: [facility] [address] [address] CHEO FREEMAN DO,MPH 02/27/2016 1:03 PM CDT 02/27/2016 1:04 PM CDT Bob Pressley MD LAB - CHEMISTRY ADDIE FRANCES [facility]) * HLA TYPING B27 (02/27/2016 1:03 PM CDT) [facility] HLA-B27 NEGATIVE NEGATIVE [facility] ([facility]) Comment: Test Performed at: [facility] [address] ENE CANAS MD Blood specimen (specimen) BLOOD SPECIMEN / Unknown 02/27/2016 1:03 PM CDT 02/27/2016 1:04 PM CDT Bob Pressley MD LAB - CHEMISTRY ADDIE FRANCES Performing Organization Address [facility] [place]/[facility]/ZIP Co de Phone Number [facility] ([facility]) * ALDOLASE (02/27/2016 1:03 PM CDT) [facility] Aldolase 5.8 < OR = 8.1 U/L [facility] ([facility]) Comment: REPORT COMMENT: FASTING:NO Test Performed at: [facility] [address] [address] CHEO FREEMAN DO,MPH Blood specimen (specimen) BLOOD SPECIMEN / Unknown 02/27/2016 1:03 PM CDT 02/27/2016 1:04 PM CDT Bob Pressley MD LAB - CHEMISTRY ADDIE FRANCES Performing Organization Address [facility] [place]/[facility]/ZIP Co de Phone Number [facility]) * CYCLIC CITRUL PEPTIDE AB IGG (CCP) (02/27/2016 1:03 PM CDT) [facility] Cyclic Citrullinated Peptide Antibody <16 UNITS [facility] ([facility]) Comment: Reference Range Negative: <20 Weak Positive: 20-39 Moderate Positive: 40-59 Strong Positive: >59 Test Performed at: [place] [address] CHEO FREEMAN DO,MPH Blood specimen (specimen) BLOOD SPECIMEN / Unknown 02/27/2016 1:03 PM CDT 02/27/2016 1:04 PM CDT Bob Pressley MD LAB - CHEMISTRY ADDIE FRANCES Performing Organization Address [facility] [place]/[facility]/ZIP Hi de Phone Number [facility] ([facility]) * LDH BLOOD (02/27/2016 1:03 PM CDT) [facility] LDH Total 154 100 - 220 U/L [facility] ([facility]) Comment: Test Performed at: [employer] [place] [address] CHEO FREEMAN DO,MPH Blood specimen (specimen) BLOOD SPECIMEN / Unknown 02/27/2016 1:03 PM CDT 02/27/2016 1:04 PM CDT Bob Pressley MD LAB - CHEMISTRY ADDIE FRANCES Performing Organization Address [facility] [place]/[facility] de Phone Number [facility] ([facility]) * HEPATITIS B SURFACE ANTIGEN W RFLX CONFIRMATION (02/27/2016 1:03 PM CDT) [facility] Hepatitis B Virus Surface Antigen NON-REACTI VE NON-REACT FOX [facility] ([facility]) Comment: Test Performed at: [place] [address] CHEO FREEMAN DO,MPH Blood specimen (specimen) BLOOD SPECIMEN / Unknown 02/27/2016 1:03 PM CDT 02/27/2016 1:04 PM CDT Bob Pressley MD LAB - CHEMISTRY ADDIE FRANCES Performing Organization Address [facility] [place]/[facility]/ZIP Hi de Phone Number [facility] ([facility]) * (ABNORMAL) CK BLOOD (02/27/2016 1:03 PM CDT) [facility] CK Total 330(H) 44 - 196 U/L [facility] ([facility]) Comment: Test Performed at: [facility] [id number] [place] [address] CHEO FREEMAN DO,MPH Blood specimen (specimen) BLOOD SPECIMEN / Unknown 02/27/2016 1:03 PM CDT 02/27/2016 1:04 PM CDT Bob Pressley MD LAB - CHEMISTRY ADDIE FRANCES Performing Organization Address [facility] [place]/[facility] de Phone Number [facility] ([facility]) * VITAMIN B12 FOLATE PANEL (02/27/2016 1:03 PM CDT) [facility] Vitamin B12 624 200 - 1,100 pg/mL [facility] ([facility]) Folate 14.8 ng/mL [facility] ([facility]) Comment: Reference Range Low: <3.4 Borderline: 3.4-5.4 Normal: >5.4 Test Performed at: [place] [address] CHEO FREEMAN DO,MPH 02/27/2016 1:03 PM CDT 02/27/2016 1:04 PM CDT Bob Pressley MD LAB - CHEMISTRY ADDIE FRANCES Performing Organization Address [facility] [place]/[facility] de Phone Number [facility]) * XR FOOT RIGHT 3VW OR MORE (02/23/2016 12:40 PM CDT) Anatomical Region Laterality Modality Ankle / Foot Other Impressions 02/23/2016 2:08 PM CDT IMPRESSION: 1. No arthritis in the right or left hands. 2. No arthritis in the right elbow. 3. Small enthesophytes in the left elbow at the lateral epicondyle and olecranon process. Mild focal soft tissue swelling posteriorly over the proximal ulna. 4. Mild osteoarthritis in both knees, left greater than right. 5. Arthritis at the first metatarsophalangeal joints of both feet, moderate on the right and mild to moderate on the left, with small erosions at least on the right. The appearance is very suggestive of gout. Osteoarthritis is also in the differential. Mild hallux valgus is noted on the right, and calcaneal spurs are present bilaterally. 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 6. Normal sacroiliac joints. Cysts or chronic erosions are noted on both sides of the pubic symphysis. This report was electronically signed by JOHN SAGE MD on 02/23/2016 2:08 PM . Narrative 02/23/2016 2:08 PM CDT Exam: 1. XR HAND RIGHT 3+ VW, 2. XR ELBOW RIGHT 2 VW, 3. XR SACROILIAC JOINTS < 3 VW, 4. XR KNEE LEFT 3 VW, 5. XR KNEE RIGHT 3 VW, 6. XR FOOT LEFT 3+ VW, 7. XR FOOT RIGHT 3+ VW, 8. XR HAND LEFT 3+ VW, 9. XR ELBOW LEFT 2 VW History: 45-year-old male with arthralgia. Please evaluate for Joint pains. Comparison: None available. Findings: Right hand: There is no fracture or dislocation. The joint spaces are normal. No erosions are present. Bone mineralization is normal. The soft tissues are normal. Left hand: There is no fracture or dislocation. The joint spaces are normal. No erosions are present. Bone mineralization is normal. The soft tissues are normal. Right elbow: There is no fracture or dislocation. The joint spaces are normal. No erosions are present. Bone mineralization is normal. No effusion is present. Left elbow: There is no fracture or dislocation. The joint spaces are normal. Small enthesophytes plates are seen at the lateral epicondyle and olecranon process. There is mild focal soft tissue swelling posteriorly overlying the dorsal aspect of the proximal ulna. No erosions are present. Bone mineralization is normal. No effusion is present. Right knee: No acute fracture or dislocation is seen. There is a degenerative changes in the medial compartment with mild subchondral sclerosis. There is mild spurring of the tibial spines. There is minimal patellofemoral osteophyte formation. No erosions are seen. Bone density is normal. There is no effusion. Left knee: No acute fracture or dislocation is present. There are mild degenerative change in the patellofemoral compartment with small osteophyte formation, but no significant joint space narrowing. The medial and lateral compartment joint spaces are normal. Bone density is normal. No erosions are seen. A small superior patellar enthesophyte is present. No effusion is present. Right foot: No acute fracture or dislocation is seen. There is moderate arthritis at the first metatarsophalangeal joint characterized by osteophyte formation, joint space narrowing, hypertrophy of the metatarsal head, subchondral cysts, and a few small erosions. Mild hallux valgus is present measuring 23 degrees. A small cyst versus erosion is suggested within the fifth proximal phalanx base. There are large posterior and small plantar calcaneal spurs. The third and fourth metatarsals are short. Bone density is normal. The first metatarsophalangeal angle is normal measuring 20 degrees. The other joint spaces are normal. There are large posterior and small plantar calcaneal spurs. Bone density is normal. The soft tissues are unremarkable. Left foot: No acute fracture or dislocation is seen. There is mild to moderate arthritis at the first metatarsophalangeal joint characterized by joint space narrowing, osteophyte formation, sclerosis, subchondral cysts, and possibly mild erosive change. There are also subchondral cysts versus small erosions at the interphalangeal joint. There is mild surrounding soft tissue swelling. The other joint spaces are normal. There are large posterior and small plantar calcaneal spurs. Bone density is normal. The first metatarsophalangeal joint angle is normal measuring 20 degrees. The third and fourth metatarsals are short. Sacroiliac joints: The sacroiliac joints are intact and symmetric bilaterally, without erosion, widening, sclerosis, narrowing, or ankylosis. The hip joint spaces are normal. Bone density is normal. Concavity is noted in the bone contour along both sides of the pubic symphysis, which may represent cysts or chronic erosions. Mild degenerative change is noted in the lower lumbar spine. Pelvic phleboliths are noted, left greater than right. Procedure Note John Sage MD - 03/01/2018 Exam: 1. XR HAND RIGHT 3+ VW, 2. XR ELBOW RIGHT 2 VW, 3. XR SACROILIAC JOINTS < 3 VW, 4. XR KNEE LEFT 3 VW, 5. XR KNEE RIGHT 3 VW, 6. XR FOOT LEFT 3+ VW, 7. XR FOOT RIGHT 3+ VW, 8. XR HAND LEFT 3+ VW, 9. XR ELBOW LEFT 2 VW History: 45-year-old male with arthralgia. Please evaluate for Jointpains. Comparison: None available. Findings: Right hand: There is no fracture or dislocation. The joint spaces are normal. Noerosions are present. Bone mineralization is normal. The soft tissues arenormal. Left hand: There is no fracture or dislocation. The joint spaces are normal. Noerosions are present. Bone mineralization is normal. The soft tissues arenormal. Right elbow: There is no fracture or dislocation. The joint spaces are normal. Noerosions are present. Bone mineralization is normal. No effusion ispresent. Left elbow: There is no fracture or dislocation. The joint spaces are normal. Smallenthesophytes plates are seen at the lateral epicondyle and olecranonprocess. There is mild focal soft tissue swelling posteriorly overlyingthe dorsal aspect of the proximal ulna. No erosions are present. Bone mineralization is normal. No effusion ispresent. Right knee: No acute fracture or dislocation is seen. There is a degenerative changesin the medial compartment with mild subchondral sclerosis. There is mildspurring of the tibial spines. There is minimal patellofemoral osteophyteformation. No erosions are seen. Bone density is normal. There is no effusion. Left knee: No acute fracture or dislocation is present. There are mild degenerativechange in the patellofemoral compartment with small osteophyte formation,but no significant joint space narrowing. The medial and lateralcompartment joint spaces are normal. Bone density is normal. No erosions are seen. A small superior patellarenthesophyte is present. No effusion is present. Right foot: No acute fracture or dislocation is seen. There is moderate arthritis atthe first metatarsophalangeal joint characterized by osteophyte formation,joint space narrowing, hypertrophy of the metatarsal head, subchondralcysts, and a few small erosions. Mild hallux valgus is present measuring 23 degrees. A small cyst versuserosion is suggested within the fifth proximal phalanx base. There arelarge posterior and small plantar calcaneal spurs. The third and fourthmetatarsals are short. Bone density is normal. The first metatarsophalangeal angle is normal measuring 20degrees. The other joint spaces are normal. There are large posterior andsmall plantar calcaneal spurs. Bone density is normal. The soft tissuesare unremarkable. Left foot: No acute fracture or dislocation is seen. There is mild to moderatearthritis at the first metatarsophalangeal joint characterized by jointspace narrowing, osteophyte formation, sclerosis, subchondral cysts, andpossibly mild erosive change. There are also subchondral cysts versus small erosions at the interphalangeal joint.There is mild surrounding soft tissue swelling. The other joint spaces arenormal. There are large posterior and small plantar calcaneal spurs. Bonedensity is normal. The first metatarsophalangeal joint angle is normal measuring 20 degrees. The thirdand fourth metatarsals are short. Sacroiliac joints: The sacroiliac joints are intact and symmetric bilaterally, withouterosion, widening, sclerosis, narrowing, or ankylosis. The hip jointspaces are normal. Bone density is normal. Concavity is noted in the bonecontour along both sides of the pubic symphysis, which may represent cysts or chronic erosions. Milddegenerative change is noted in the lower lumbar spine. Pelvic phlebolithsare noted, left greater than right. IMPRESSION IMPRESSION: 1. No arthritis in the right or left hands. 2. No arthritis in the right elbow. 3. Small enthesophytes in the left elbow at the lateral epicondyle andolecranon process. Mild focal soft tissue swelling posteriorly over theproximal ulna. 4. Mild osteoarthritis in both knees, left greater than right. 5. Arthritis at the first metatarsophalangeal joints of both feet,moderate on the right and mild to moderate on the left, with smallerosions at least on the right. The appearance is very suggestive of gout.Osteoarthritis is also in the differential. Mild hallux valgus is noted on the right, and calcaneal spurs are presentbilaterally. Brachydactyly affecting the third and fourth metatarsals isnoted bilaterally. 6. Normal sacroiliac joints. Cysts or chronic erosions are noted on bothsides of the pubic symphysis. This report was electronically signed by JOHN SAGE MD on 02/23/20162:08 PM . Bob Pressley MD DIAGNOSTIC IMAGING O RDERABLES * XR FOOT LEFT 3VW OR MORE (02/23/2016 12:40 PM CDT) Anatomical Region Laterality Modality Ankle / Foot Other Impressions 02/23/2016 2:08 PM CDT IMPRESSION: 1. No arthritis in the right or left hands. 2. No arthritis in the right elbow. 3. Small enthesophytes in the left elbow at the lateral epicondyle and olecranon process. Mild focal soft tissue swelling posteriorly over the proximal ulna. 4. Mild osteoarthritis in both knees, left greater than right. 5. Arthritis at the first metatarsophalangeal joints of both feet, moderate on the right and mild to moderate on the left, with small erosions at least on the right. The appearance is very suggestive of gout. Osteoarthritis is also in the differential. Mild hallux valgus is noted on the right, and calcaneal spurs are present bilaterally. 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 6. Normal sacroiliac joints. Cysts or chronic erosions are noted on both sides of the pubic symphysis. This report was electronically signed by JOHN SAGE MD on 02/23/2016 2:08 PM . Narrative 02/23/2016 2:08 PM CDT Exam: 1. XR HAND RIGHT 3+ VW, 2. XR ELBOW RIGHT 2 VW, 3. XR SACROILIAC JOINTS < 3 VW, 4. XR KNEE LEFT 3 VW, 5. XR KNEE RIGHT 3 VW, 6. XR FOOT LEFT 3+ VW, 7. XR FOOT RIGHT 3+ VW, 8. XR HAND LEFT 3+ VW, 9. XR ELBOW LEFT 2 VW History: 45-year-old male with arthralgia. Please evaluate for Joint pains. Comparison: None available. Findings: Right hand: There is no fracture or dislocation. The joint spaces are normal. No erosions are present. Bone mineralization is normal. The soft tissues are normal. Left hand: There is no fracture or dislocation. The joint spaces are normal. No erosions are present. Bone mineralization is normal. The soft tissues are normal. Right elbow: There is no fracture or dislocation. The joint spaces are normal. No erosions are present. Bone mineralization is normal. No effusion is present. Left elbow: There is no fracture or dislocation. The joint spaces are normal. Small enthesophytes plates are seen at the lateral epicondyle and olecranon process. There is mild focal soft tissue swelling posteriorly overlying the dorsal aspect of the proximal ulna. No erosions are present. Bone mineralization is normal. No effusion is present. Right knee: No acute fracture or dislocation is seen. There is a degenerative changes in the medial compartment with mild subchondral sclerosis. There is mild spurring of the tibial spines. There is minimal patellofemoral osteophyte formation. No erosions are seen. Bone density is normal. There is no effusion. Left knee: No acute fracture or dislocation is present. There are mild degenerative change in the patellofemoral compartment with small osteophyte formation, but no significant joint space narrowing. The medial and lateral compartment joint spaces are normal. Bone density is normal. No erosions are seen. A small superior patellar enthesophyte is present. No effusion is present. Right foot: No acute fracture or dislocation is seen. There is moderate arthritis at the first metatarsophalangeal joint characterized by osteophyte formation, joint space narrowing, hypertrophy of the metatarsal head, subchondral cysts, and a few small erosions. Mild hallux valgus is present measuring 23 degrees. A small cyst versus erosion is suggested within the fifth proximal phalanx base. There are large posterior and small plantar calcaneal spurs. The third and fourth metatarsals are short. Bone density is normal. The first metatarsophalangeal angle is normal measuring 20 degrees. The other joint spaces are normal. There are large posterior and small plantar calcaneal spurs. Bone density is normal. The soft tissues are unremarkable. Left foot: No acute fracture or dislocation is seen. There is mild to moderate arthritis at the first metatarsophalangeal joint characterized by joint space narrowing, osteophyte formation, sclerosis, subchondral cysts, and possibly mild erosive change. There are also subchondral cysts versus small erosions at the interphalangeal joint. There is mild surrounding soft tissue swelling. The other joint spaces are normal. There are large posterior and small plantar calcaneal spurs. Bone density is normal. The first metatarsophalangeal joint angle is normal measuring 20 degrees. The third and fourth metatarsals are short. Sacroiliac joints: The sacroiliac joints are intact and symmetric bilaterally, without erosion, widening, sclerosis, narrowing, or ankylosis. The hip joint spaces are normal. Bone density is normal. Concavity is noted in the bone contour along both sides of the pubic symphysis, which may represent cysts or chronic erosions. Mild degenerative change is noted in the lower lumbar spine. Pelvic phleboliths are noted, left greater than right. Procedure Note John Sage MD - 03/01/2018 Exam: 1. XR HAND RIGHT 3+ VW, 2. XR ELBOW RIGHT 2 VW, 3. XR SACROILIAC JOINTS < 3 VW, 4. XR KNEE LEFT 3 VW, 5. XR KNEE RIGHT 3 VW, 6. XR FOOT LEFT 3+ VW, 7. XR FOOT RIGHT 3+ VW, 8. XR HAND LEFT 3+ VW, 9. XR ELBOW LEFT 2 VW History: 45-year-old male with arthralgia. Please evaluate for Jointpains. Comparison: None available. Findings: Right hand: There is no fracture or dislocation. The joint spaces are normal. Noerosions are present. Bone mineralization is normal. The soft tissues arenormal. Left hand: There is no fracture or dislocation. The joint spaces are normal. Noerosions are present. Bone mineralization is normal. The soft tissues arenormal. Right elbow: There is no fracture or dislocation. The joint spaces are normal. Noerosions are present. Bone mineralization is normal. No effusion ispresent. Left elbow: There is no fracture or dislocation. The joint spaces are normal. Smallenthesophytes plates are seen at the lateral epicondyle and olecranonprocess. There is mild focal soft tissue swelling posteriorly overlyingthe dorsal aspect of the proximal ulna. No erosions are present. Bone mineralization is normal. No effusion ispresent. Right knee: No acute fracture or dislocation is seen. There is a degenerative changesin the medial compartment with mild subchondral sclerosis. There is mildspurring of the tibial spines. There is minimal patellofemoral osteophyteformation. No erosions are seen. Bone density is normal. There is no effusion. Left knee: No acute fracture or dislocation is present. There are mild degenerativechange in the patellofemoral compartment with small osteophyte formation,but no significant joint space narrowing. The medial and lateralcompartment joint spaces are normal. Bone density is normal. No erosions are seen. A small superior patellarenthesophyte is present. No effusion is present. Right foot: No acute fracture or dislocation is seen. There is moderate arthritis atthe first metatarsophalangeal joint characterized by osteophyte formation,joint space narrowing, hypertrophy of the metatarsal head, subchondralcysts, and a few small erosions. Mild hallux valgus is present measuring 23 degrees. A small cyst versuserosion is suggested within the fifth proximal phalanx base. There arelarge posterior and small plantar calcaneal spurs. The third and fourthmetatarsals are short. Bone density is normal. The first metatarsophalangeal angle is normal measuring 20degrees. The other joint spaces are normal. There are large posterior andsmall plantar calcaneal spurs. Bone density is normal. The soft tissuesare unremarkable. Left foot: No acute fracture or dislocation is seen. There is mild to moderatearthritis at the first metatarsophalangeal joint characterized by jointspace narrowing, osteophyte formation, sclerosis, subchondral cysts, andpossibly mild erosive change. There are also subchondral cysts versus small erosions at the interphalangeal joint.There is mild surrounding soft tissue swelling. The other joint spaces arenormal. There are large posterior and small plantar calcaneal spurs. Bonedensity is normal. The first metatarsophalangeal joint angle is normal measuring 20 degrees. The thirdand fourth metatarsals are short. Sacroiliac joints: The sacroiliac joints are intact and symmetric bilaterally, withouterosion, widening, sclerosis, narrowing, or ankylosis. The hip jointspaces are normal. Bone density is normal. Concavity is noted in the bonecontour along both sides of the pubic symphysis, which may represent cysts or chronic erosions. Milddegenerative change is noted in the lower lumbar spine. Pelvic phlebolithsare noted, left greater than right. IMPRESSION IMPRESSION: 1. No arthritis in the right or left hands. 2. No arthritis in the right elbow. 3. Small enthesophytes in the left elbow at the lateral epicondyle andolecranon process. Mild focal soft tissue swelling posteriorly over theproximal ulna. 4. Mild osteoarthritis in both knees, left greater than right. 5. Arthritis at the first metatarsophalangeal joints of both feet,moderate on the right and mild to moderate on the left, with smallerosions at least on the right. The appearance is very suggestive of gout.Osteoarthritis is also in the differential. Mild hallux valgus is noted on the right, and calcaneal spurs are presentbilaterally. Brachydactyly affecting the third and fourth metatarsals isnoted bilaterally. 6. Normal sacroiliac joints. Cysts or chronic erosions are noted on bothsides of the pubic symphysis. This report was electronically signed by JOHN SAGE MD on 02/23/20162:08 PM . Bob Pressley MD DIAGNOSTIC IMAGING O RDERABLES * XR HAND RIGHT 3VW OR MORE (02/23/2016 12:40 PM CDT) Anatomical Region Laterality Modality Wrist / Hand Other Impressions 02/23/2016 2:08 PM CDT IMPRESSION: 1. No arthritis in the right or left hands. 2. No arthritis in the right elbow. 3. Small enthesophytes in the left elbow at the lateral epicondyle and olecranon process. Mild focal soft tissue swelling posteriorly over the proximal ulna. 4. Mild osteoarthritis in both knees, left greater than right. 5. Arthritis at the first metatarsophalangeal joints of both feet, moderate on the right and mild to moderate on the left, with small erosions at least on the right. The appearance is very suggestive of gout. Osteoarthritis is also in the differential. Mild hallux valgus is noted on the right, and calcaneal spurs are present bilaterally. 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 6. Normal sacroiliac joints. Cysts or chronic erosions are noted on both sides of the pubic symphysis. This report was electronically signed by JOHN SAGE MD on 02/23/2016 2:08 PM . Narrative 02/23/2016 2:08 PM CDT Exam: 1. XR HAND RIGHT 3+ VW, 2. XR ELBOW RIGHT 2 VW, 3. XR SACROILIAC JOINTS < 3 VW, 4. XR KNEE LEFT 3 VW, 5. XR KNEE RIGHT 3 VW, 6. XR FOOT LEFT 3+ VW, 7. XR FOOT RIGHT 3+ VW, 8. XR HAND LEFT 3+ VW, 9. XR ELBOW LEFT 2 VW History: 45-year-old male with arthralgia. Please evaluate for Joint pains. Comparison: None available. Findings: Right hand: There is no fracture or dislocation. The joint spaces are normal. No erosions are present. Bone mineralization is normal. The soft tissues are normal. Left hand: There is no fracture or dislocation. The joint spaces are normal. No erosions are present. Bone mineralization is normal. The soft tissues are normal. Right elbow: There is no fracture or dislocation. The joint spaces are normal. No erosions are present. Bone mineralization is normal. No effusion is present. Left elbow: There is no fracture or dislocation. The joint spaces are normal. Small enthesophytes plates are seen at the lateral epicondyle and olecranon process. There is mild focal soft tissue swelling posteriorly overlying the dorsal aspect of the proximal ulna. No erosions are present. Bone mineralization is normal. No effusion is present. Right knee: No acute fracture or dislocation is seen. There is a degenerative changes in the medial compartment with mild subchondral sclerosis. There is mild spurring of the tibial spines. There is minimal patellofemoral osteophyte formation. No erosions are seen. Bone density is normal. There is no effusion. Left knee: No acute fracture or dislocation is present. There are mild degenerative change in the patellofemoral compartment with small osteophyte formation, but no significant joint space narrowing. The medial and lateral compartment joint spaces are normal. Bone density is normal. No erosions are seen. A small superior patellar enthesophyte is present. No effusion is present. Right foot: No acute fracture or dislocation is seen. There is moderate arthritis at the first metatarsophalangeal joint characterized by osteophyte formation, joint space narrowing, hypertrophy of the metatarsal head, subchondral cysts, and a few small erosions. Mild hallux valgus is present measuring 23 degrees. A small cyst versus erosion is suggested within the fifth proximal phalanx base. There are large posterior and small plantar calcaneal spurs. The third and fourth metatarsals are short. Bone density is normal. The first metatarsophalangeal angle is normal measuring 20 degrees. The other joint spaces are normal. There are large posterior and small plantar calcaneal spurs. Bone density is normal. The soft tissues are unremarkable. Left foot: No acute fracture or dislocation is seen. There is mild to moderate arthritis at the first metatarsophalangeal joint characterized by joint space narrowing, osteophyte formation, sclerosis, subchondral cysts, and possibly mild erosive change. There are also subchondral cysts versus small erosions at the interphalangeal joint. There is mild surrounding soft tissue swelling. The other joint spaces are normal. There are large posterior and small plantar calcaneal spurs. Bone density is normal. The first metatarsophalangeal joint angle is normal measuring 20 degrees. The third and fourth metatarsals are short. Sacroiliac joints: The sacroiliac joints are intact and symmetric bilaterally, without erosion, widening, sclerosis, narrowing, or ankylosis. The hip joint spaces are normal. Bone density is normal. Concavity is noted in the bone contour along both sides of the pubic symphysis, which may represent cysts or chronic erosions. Mild degenerative change is noted in the lower lumbar spine. Pelvic phleboliths are noted, left greater than right. Procedure Note John Sage MD - 03/01/2018 Exam: 1. XR HAND RIGHT 3+ VW, 2. XR ELBOW RIGHT 2 VW, 3. XR SACROILIAC JOINTS < 3 VW, 4. XR KNEE LEFT 3 VW, 5. XR KNEE RIGHT 3 VW, 6. XR FOOT LEFT 3+ VW, 7. XR FOOT RIGHT 3+ VW, 8. XR HAND LEFT 3+ VW, 9. XR ELBOW LEFT 2 VW History: 45-year-old male with arthralgia. Please evaluate for Jointpains. Comparison: None available. Findings: Right hand: There is no fracture or dislocation. The joint spaces are normal. Noerosions are present. Bone mineralization is normal. The soft tissues arenormal. Left hand: There is no fracture or dislocation. The joint spaces are normal. Noerosions are present. Bone mineralization is normal. The soft tissues arenormal. Right elbow: There is no fracture or dislocation. The joint spaces are normal. Noerosions are present. Bone mineralization is normal. No effusion ispresent. Left elbow: There is no fracture or dislocation. The joint spaces are normal. Smallenthesophytes plates are seen at the lateral epicondyle and olecranonprocess. There is mild focal soft tissue swelling posteriorly overlyingthe dorsal aspect of the proximal ulna. No erosions are present. Bone mineralization is normal. No effusion ispresent. Right knee: No acute fracture or dislocation is seen. There is a degenerative changesin the medial compartment with mild subchondral sclerosis. There is mildspurring of the tibial spines. There is minimal patellofemoral osteophyteformation. No erosions are seen. Bone density is normal. There is no effusion. Left knee: No acute fracture or dislocation is present. There are mild degenerativechange in the patellofemoral compartment with small osteophyte formation,but no significant joint space narrowing. The medial and lateralcompartment joint spaces are normal. Bone density is normal. No erosions are seen. A small superior patellarenthesophyte is present. No effusion is present. Right foot: No acute fracture or dislocation is seen. There is moderate arthritis atthe first metatarsophalangeal joint characterized by osteophyte formation,joint space narrowing, hypertrophy of the metatarsal head, subchondralcysts, and a few small erosions. Mild hallux valgus is present measuring 23 degrees. A small cyst versuserosion is suggested within the fifth proximal phalanx base. There arelarge posterior and small plantar calcaneal spurs. The third and fourthmetatarsals are short. Bone density is normal. The first metatarsophalangeal angle is normal measuring 20degrees. The other joint spaces are normal. There are large posterior andsmall plantar calcaneal spurs. Bone density is normal. The soft tissuesare unremarkable. Left foot: No acute fracture or dislocation is seen. There is mild to moderatearthritis at the first metatarsophalangeal joint characterized by jointspace narrowing, osteophyte formation, sclerosis, subchondral cysts, andpossibly mild erosive change. There are also subchondral cysts versus small erosions at the interphalangeal joint.There is mild surrounding soft tissue swelling. The other joint spaces arenormal. There are large posterior and small plantar calcaneal spurs. Bonedensity is normal. The first metatarsophalangeal joint angle is normal measuring 20 degrees. The thirdand fourth metatarsals are short. Sacroiliac joints: The sacroiliac joints are intact and symmetric bilaterally, withouterosion, widening, sclerosis, narrowing, or ankylosis. The hip jointspaces are normal. Bone density is normal. Concavity is noted in the bonecontour along both sides of the pubic symphysis, which may represent cysts or chronic erosions. Milddegenerative change is noted in the lower lumbar spine. Pelvic phlebolithsare noted, left greater than right. IMPRESSION IMPRESSION: 1. No arthritis in the right or left hands. 2. No arthritis in the right elbow. 3. Small enthesophytes in the left elbow at the lateral epicondyle andolecranon process. Mild focal soft tissue swelling posteriorly over theproximal ulna. 4. Mild osteoarthritis in both knees, left greater than right. 5. Arthritis at the first metatarsophalangeal joints of both feet,moderate on the right and mild to moderate on the left, with smallerosions at least on the right. The appearance is very suggestive of gout.Osteoarthritis is also in the differential. Mild hallux valgus is noted on the right, and calcaneal spurs are presentbilaterally. Brachydactyly affecting the third and fourth metatarsals isnoted bilaterally. 6. Normal sacroiliac joints. Cysts or chronic erosions are noted on bothsides of the pubic symphysis. This report was electronically signed by JOHN SAGE MD on 02/23/20162:08 PM . Bob Pressley MD DIAGNOSTIC IMAGING O RDERABLES * XR HAND LEFT 3VW OR MORE (02/23/2016 12:40 PM CDT) Anatomical Region Laterality Modality Wrist / Hand Other Impressions 02/23/2016 2:08 PM CDT IMPRESSION: 1. No arthritis in the right or left hands. 2. No arthritis in the right elbow. 3. Small enthesophytes in the left elbow at the lateral epicondyle and olecranon process. Mild focal soft tissue swelling posteriorly over the proximal ulna. 4. Mild osteoarthritis in both knees, left greater than right. 5. Arthritis at the first metatarsophalangeal joints of both feet, moderate on the right and mild to moderate on the left, with small erosions at least on the right. The appearance is very suggestive of gout. Osteoarthritis is also in the differential. Mild hallux valgus is noted on the right, and calcaneal spurs are present bilaterally. 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 6. Normal sacroiliac joints. Cysts or chronic erosions are noted on both sides of the pubic symphysis. This report was electronically signed by JOHN SAGE MD on 02/23/2016 2:08 PM . Narrative 02/23/2016 2:08 PM CDT Exam: 1. XR HAND RIGHT 3+ VW, 2. XR ELBOW RIGHT 2 VW, 3. XR SACROILIAC JOINTS < 3 VW, 4. XR KNEE LEFT 3 VW, 5. XR KNEE RIGHT 3 VW, 6. XR FOOT LEFT 3+ VW, 7. XR FOOT RIGHT 3+ VW, 8. XR HAND LEFT 3+ VW, 9. XR ELBOW LEFT 2 VW History: 45-year-old male with arthralgia. Please evaluate for Joint pains. Comparison: None available. Findings: Right hand: There is no fracture or dislocation. The joint spaces are normal. No erosions are present. Bone mineralization is normal. The soft tissues are normal. Left hand: There is no fracture or dislocation. The joint spaces are normal. No erosions are present. Bone mineralization is normal. The soft tissues are normal. Right elbow: There is no fracture or dislocation. The joint spaces are normal. No erosions are present. Bone mineralization is normal. No effusion is present. Left elbow: There is no fracture or dislocation. The joint spaces are normal. Small enthesophytes plates are seen at the lateral epicondyle and olecranon process. There is mild focal soft tissue swelling posteriorly overlying the dorsal aspect of the proximal ulna. No erosions are present. Bone mineralization is normal. No effusion is present. Right knee: No acute fracture or dislocation is seen. There is a degenerative changes in the medial compartment with mild subchondral sclerosis. There is mild spurring of the tibial spines. There is minimal patellofemoral osteophyte formation. No erosions are seen. Bone density is normal. There is no effusion. Left knee: No acute fracture or dislocation is present. There are mild degenerative change in the patellofemoral compartment with small osteophyte formation, but no significant joint space narrowing. The medial and lateral compartment joint spaces are normal. Bone density is normal. No erosions are seen. A small superior patellar enthesophyte is present. No effusion is present. Right foot: No acute fracture or dislocation is seen. There is moderate arthritis at the first metatarsophalangeal joint characterized by osteophyte formation, joint space narrowing, hypertrophy of the metatarsal head, subchondral cysts, and a few small erosions. Mild hallux valgus is present measuring 23 degrees. A small cyst versus erosion is suggested within the fifth proximal phalanx base. There are large posterior and small plantar calcaneal spurs. The third and fourth metatarsals are short. Bone density is normal. The first metatarsophalangeal angle is normal measuring 20 degrees. The other joint spaces are normal. There are large posterior and small plantar calcaneal spurs. Bone density is normal. The soft tissues are unremarkable. Left foot: No acute fracture or dislocation is seen. There is mild to moderate arthritis at the first metatarsophalangeal joint characterized by joint space narrowing, osteophyte formation, sclerosis, subchondral cysts, and possibly mild erosive change. There are also subchondral cysts versus small erosions at the interphalangeal joint. There is mild surrounding soft tissue swelling. The other joint spaces are normal. There are large posterior and small plantar calcaneal spurs. Bone density is normal. The first metatarsophalangeal joint angle is normal measuring 20 degrees. The third and fourth metatarsals are short. Sacroiliac joints: The sacroiliac joints are intact and symmetric bilaterally, without erosion, widening, sclerosis, narrowing, or ankylosis. The hip joint spaces are normal. Bone density is normal. Concavity is noted in the bone contour along both sides of the pubic symphysis, which may represent cysts or chronic erosions. Mild degenerative change is noted in the lower lumbar spine. Pelvic phleboliths are noted, left greater than right. Procedure Note John Sage MD - 03/01/2018 Exam: 1. XR HAND RIGHT 3+ VW, 2. XR ELBOW RIGHT 2 VW, 3. XR SACROILIAC JOINTS < 3 VW, 4. XR KNEE LEFT 3 VW, 5. XR KNEE RIGHT 3 VW, 6. XR FOOT LEFT 3+ VW, 7. XR FOOT RIGHT 3+ VW, 8. XR HAND LEFT 3+ VW, 9. XR ELBOW LEFT 2 VW History: 45-year-old male with arthralgia. Please evaluate for Jointpains. Comparison: None available. Findings: Right hand: There is no fracture or dislocation. The joint spaces are normal. Noerosions are present. Bone mineralization is normal. The soft tissues arenormal. Left hand: There is no fracture or dislocation. The joint spaces are normal. Noerosions are present. Bone mineralization is normal. The soft tissues arenormal. Right elbow: There is no fracture or dislocation. The joint spaces are normal. Noerosions are present. Bone mineralization is normal. No effusion ispresent. Left elbow: There is no fracture or dislocation. The joint spaces are normal. Smallenthesophytes plates are seen at the lateral epicondyle and olecranonprocess. There is mild focal soft tissue swelling posteriorly overlyingthe dorsal aspect of the proximal ulna. No erosions are present. Bone mineralization is normal. No effusion ispresent. Right knee: No acute fracture or dislocation is seen. There is a degenerative changesin the medial compartment with mild subchondral sclerosis. There is mildspurring of the tibial spines. There is minimal patellofemoral osteophyteformation. No erosions are seen. Bone density is normal. There is no effusion. Left knee: No acute fracture or dislocation is present. There are mild degenerativechange in the patellofemoral compartment with small osteophyte formation,but no significant joint space narrowing. The medial and lateralcompartment joint spaces are normal. Bone density is normal. No erosions are seen. A small superior patellarenthesophyte is present. No effusion is present. Right foot: No acute fracture or dislocation is seen. There is moderate arthritis atthe first metatarsophalangeal joint characterized by osteophyte formation,joint space narrowing, hypertrophy of the metatarsal head, subchondralcysts, and a few small erosions. Mild hallux valgus is present measuring 23 degrees. A small cyst versuserosion is suggested within the fifth proximal phalanx base. There arelarge posterior and small plantar calcaneal spurs. The third and fourthmetatarsals are short. Bone density is normal. The first metatarsophalangeal angle is normal measuring 20degrees. The other joint spaces are normal. There are large posterior andsmall plantar calcaneal spurs. Bone density is normal. The soft tissuesare unremarkable. Left foot: No acute fracture or dislocation is seen. There is mild to moderatearthritis at the first metatarsophalangeal joint characterized by jointspace narrowing, osteophyte formation, sclerosis, subchondral cysts, andpossibly mild erosive change. There are also subchondral cysts versus small erosions at the interphalangeal joint.There is mild surrounding soft tissue swelling. The other joint spaces arenormal. There are large posterior and small plantar calcaneal spurs. Bonedensity is normal. The first metatarsophalangeal joint angle is normal measuring 20 degrees. The thirdand fourth metatarsals are short. Sacroiliac joints: The sacroiliac joints are intact and symmetric bilaterally, withouterosion, widening, sclerosis, narrowing, or ankylosis. The hip jointspaces are normal. Bone density is normal. Concavity is noted in the bonecontour along both sides of the pubic symphysis, which may represent cysts or chronic erosions. Milddegenerative change is noted in the lower lumbar spine. Pelvic phlebolithsare noted, left greater than right. IMPRESSION IMPRESSION: 1. No arthritis in the right or left hands. 2. No arthritis in the right elbow. 3. Small enthesophytes in the left elbow at the lateral epicondyle andolecranon process. Mild focal soft tissue swelling posteriorly over theproximal ulna. 4. Mild osteoarthritis in both knees, left greater than right. 5. Arthritis at the first metatarsophalangeal joints of both feet,moderate on the right and mild to moderate on the left, with smallerosions at least on the right. The appearance is very suggestive of gout.Osteoarthritis is also in the differential. Mild hallux valgus is noted on the right, and calcaneal spurs are presentbilaterally. Brachydactyly affecting the third and fourth metatarsals isnoted bilaterally. 6. Normal sacroiliac joints. Cysts or chronic erosions are noted on bothsides of the pubic symphysis. This report was electronically signed by JOHN SAGE MD on 02/23/20162:08 PM . Bob Pressley MD DIAGNOSTIC IMAGING O RDERABLES * XR ELBOW RIGHT 2VW (02/23/2016 12:40 PM CDT) Anatomical Region Laterality Modality Upper Extremity Other Impressions 02/23/2016 2:08 PM CDT IMPRESSION: 1. No arthritis in the right or left hands. 2. No arthritis in the right elbow. 3. Small enthesophytes in the left elbow at the lateral epicondyle and olecranon process. Mild focal soft tissue swelling posteriorly over the proximal ulna. 4. Mild osteoarthritis in both knees, left greater than right. 5. Arthritis at the first metatarsophalangeal joints of both feet, moderate on the right and mild to moderate on the left, with small erosions at least on the right. The appearance is very suggestive of gout. Osteoarthritis is also in the differential. Mild hallux valgus is noted on the right, and calcaneal spurs are present bilaterally. 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 6. Normal sacroiliac joints. Cysts or chronic erosions are noted on both sides of the pubic symphysis. This report was electronically signed by JOHN SAGE MD on 02/23/2016 2:08 PM . Narrative 02/23/2016 2:08 PM CDT Exam: 1. XR HAND RIGHT 3+ VW, 2. XR ELBOW RIGHT 2 VW, 3. XR SACROILIAC JOINTS < 3 VW, 4. XR KNEE LEFT 3 VW, 5. XR KNEE RIGHT 3 VW, 6. XR FOOT LEFT 3+ VW, 7. XR FOOT RIGHT 3+ VW, 8. XR HAND LEFT 3+ VW, 9. XR ELBOW LEFT 2 VW History: 45-year-old male with arthralgia. Please evaluate for Joint pains. Comparison: None available. Findings: Right hand: There is no fracture or dislocation. The joint spaces are normal. No erosions are present. Bone mineralization is normal. The soft tissues are normal. Left hand: There is no fracture or dislocation. The joint spaces are normal. No erosions are present. Bone mineralization is normal. The soft tissues are normal. Right elbow: There is no fracture or dislocation. The joint spaces are normal. No erosions are present. Bone mineralization is normal. No effusion is present. Left elbow: There is no fracture or dislocation. The joint spaces are normal. Small enthesophytes plates are seen at the lateral epicondyle and olecranon process. There is mild focal soft tissue swelling posteriorly overlying the dorsal aspect of the proximal ulna. No erosions are present. Bone mineralization is normal. No effusion is present. Right knee: No acute fracture or dislocation is seen. There is a degenerative changes in the medial compartment with mild subchondral sclerosis. There is mild spurring of the tibial spines. There is minimal patellofemoral osteophyte formation. No erosions are seen. Bone density is normal. There is no effusion. Left knee: No acute fracture or dislocation is present. There are mild degenerative change in the patellofemoral compartment with small osteophyte formation, but no significant joint space narrowing. The medial and lateral compartment joint spaces are normal. Bone density is normal. No erosions are seen. A small superior patellar enthesophyte is present. No effusion is present. Right foot: No acute fracture or dislocation is seen. There is moderate arthritis at the first metatarsophalangeal joint characterized by osteophyte formation, joint space narrowing, hypertrophy of the metatarsal head, subchondral cysts, and a few small erosions. Mild hallux valgus is present measuring 23 degrees. A small cyst versus erosion is suggested within the fifth proximal phalanx base. There are large posterior and small plantar calcaneal spurs. The third and fourth metatarsals are short. Bone density is normal. The first metatarsophalangeal angle is normal measuring 20 degrees. The other joint spaces are normal. There are large posterior and small plantar calcaneal spurs. Bone density is normal. The soft tissues are unremarkable. Left foot: No acute fracture or dislocation is seen. There is mild to moderate arthritis at the first metatarsophalangeal joint characterized by joint space narrowing, osteophyte formation, sclerosis, subchondral cysts, and possibly mild erosive change. There are also subchondral cysts versus small erosions at the interphalangeal joint. There is mild surrounding soft tissue swelling. The other joint spaces are normal. There are large posterior and small plantar calcaneal spurs. Bone density is normal. The first metatarsophalangeal joint angle is normal measuring 20 degrees. The third and fourth metatarsals are short. Sacroiliac joints: The sacroiliac joints are intact and symmetric bilaterally, without erosion, widening, sclerosis, narrowing, or ankylosis. The hip joint spaces are normal. Bone density is normal. Concavity is noted in the bone contour along both sides of the pubic symphysis, which may represent cysts or chronic erosions. Mild degenerative change is noted in the lower lumbar spine. Pelvic phleboliths are noted, left greater than right. Procedure Note John Sage MD - 03/01/2018 Exam: 1. XR HAND RIGHT 3+ VW, 2. XR ELBOW RIGHT 2 VW, 3. XR SACROILIAC JOINTS < 3 VW, 4. XR KNEE LEFT 3 VW, 5. XR KNEE RIGHT 3 VW, 6. XR FOOT LEFT 3+ VW, 7. XR FOOT RIGHT 3+ VW, 8. XR HAND LEFT 3+ VW, 9. XR ELBOW LEFT 2 VW History: 45-year-old male with arthralgia. Please evaluate for Jointpains. Comparison: None available. Findings: Right hand: There is no fracture or dislocation. The joint spaces are normal. Noerosions are present. Bone mineralization is normal. The soft tissues arenormal. Left hand: There is no fracture or dislocation. The joint spaces are normal. Noerosions are present. Bone mineralization is normal. The soft tissues arenormal. Right elbow: There is no fracture or dislocation. The joint spaces are normal. Noerosions are present. Bone mineralization is normal. No effusion ispresent. Left elbow: There is no fracture or dislocation. The joint spaces are normal. Smallenthesophytes plates are seen at the lateral epicondyle and olecranonprocess. There is mild focal soft tissue swelling posteriorly overlyingthe dorsal aspect of the proximal ulna. No erosions are present. Bone mineralization is normal. No effusion ispresent. Right knee: No acute fracture or dislocation is seen. There is a degenerative changesin the medial compartment with mild subchondral sclerosis. There is mildspurring of the tibial spines. There is minimal patellofemoral osteophyteformation. No erosions are seen. Bone density is normal. There is no effusion. Left knee: No acute fracture or dislocation is present. There are mild degenerativechange in the patellofemoral compartment with small osteophyte formation,but no significant joint space narrowing. The medial and lateralcompartment joint spaces are normal. Bone density is normal. No erosions are seen. A small superior patellarenthesophyte is present. No effusion is present. Right foot: No acute fracture or dislocation is seen. There is moderate arthritis atthe first metatarsophalangeal joint characterized by osteophyte formation,joint space narrowing, hypertrophy of the metatarsal head, subchondralcysts, and a few small erosions. Mild hallux valgus is present measuring 23 degrees. A small cyst versuserosion is suggested within the fifth proximal phalanx base. There arelarge posterior and small plantar calcaneal spurs. The third and fourthmetatarsals are short. Bone density is normal. The first metatarsophalangeal angle is normal measuring 20degrees. The other joint spaces are normal. There are large posterior andsmall plantar calcaneal spurs. Bone density is normal. The soft tissuesare unremarkable. Left foot: No acute fracture or dislocation is seen. There is mild to moderatearthritis at the first metatarsophalangeal joint characterized by jointspace narrowing, osteophyte formation, sclerosis, subchondral cysts, andpossibly mild erosive change. There are also subchondral cysts versus small erosions at the interphalangeal joint.There is mild surrounding soft tissue swelling. The other joint spaces arenormal. There are large posterior and small plantar calcaneal spurs. Bonedensity is normal. The first metatarsophalangeal joint angle is normal measuring 20 degrees. The thirdand fourth metatarsals are short. Sacroiliac joints: The sacroiliac joints are intact and symmetric bilaterally, withouterosion, widening, sclerosis, narrowing, or ankylosis. The hip jointspaces are normal. Bone density is normal. Concavity is noted in the bonecontour along both sides of the pubic symphysis, which may represent cysts or chronic erosions. Milddegenerative change is noted in the lower lumbar spine. Pelvic phlebolithsare noted, left greater than right. IMPRESSION IMPRESSION: 1. No arthritis in the right or left hands. 2. No arthritis in the right elbow. 3. Small enthesophytes in the left elbow at the lateral epicondyle andolecranon process. Mild focal soft tissue swelling posteriorly over theproximal ulna. 4. Mild osteoarthritis in both knees, left greater than right. 5. Arthritis at the first metatarsophalangeal joints of both feet,moderate on the right and mild to moderate on the left, with smallerosions at least on the right. The appearance is very suggestive of gout.Osteoarthritis is also in the differential. Mild hallux valgus is noted on the right, and calcaneal spurs are presentbilaterally. Brachydactyly affecting the third and fourth metatarsals isnoted bilaterally. 6. Normal sacroiliac joints. Cysts or chronic erosions are noted on bothsides of the pubic symphysis. This report was electronically signed by JOHN SAGE MD on 02/23/20162:08 PM . Bob Pressley MD DIAGNOSTIC IMAGING O RDERABLES * XR ELBOW LEFT 2VW (02/23/2016 12:40 PM CDT) Anatomical Region Laterality Modality Upper Extremity Other Impressions 02/23/2016 2:08 PM CDT IMPRESSION: 1. No arthritis in the right or left hands. 2. No arthritis in the right elbow. 3. Small enthesophytes in the left elbow at the lateral epicondyle and olecranon process. Mild focal soft tissue swelling posteriorly over the proximal ulna. 4. Mild osteoarthritis in both knees, left greater than right. 5. Arthritis at the first metatarsophalangeal joints of both feet, moderate on the right and mild to moderate on the left, with small erosions at least on the right. The appearance is very suggestive of gout. Osteoarthritis is also in the differential. Mild hallux valgus is noted on the right, and calcaneal spurs are present bilaterally. 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 6. Normal sacroiliac joints. Cysts or chronic erosions are noted on both sides of the pubic symphysis. This report was electronically signed by JOHN SAGE MD on 02/23/2016 2:08 PM . Narrative 02/23/2016 2:08 PM CDT Exam: 1. XR HAND RIGHT 3+ VW, 2. XR ELBOW RIGHT 2 VW, 3. XR SACROILIAC JOINTS < 3 VW, 4. XR KNEE LEFT 3 VW, 5. XR KNEE RIGHT 3 VW, 6. XR FOOT LEFT 3+ VW, 7. XR FOOT RIGHT 3+ VW, 8. XR HAND LEFT 3+ VW, 9. XR ELBOW LEFT 2 VW History: 45-year-old male with arthralgia. Please evaluate for Joint pains. Comparison: None available. Findings: Right hand: There is no fracture or dislocation. The joint spaces are normal. No erosions are present. Bone mineralization is normal. The soft tissues are normal. Left hand: There is no fracture or dislocation. The joint spaces are normal. No erosions are present. Bone mineralization is normal. The soft tissues are normal. Right elbow: There is no fracture or dislocation. The joint spaces are normal. No erosions are present. Bone mineralization is normal. No effusion is present. Left elbow: There is no fracture or dislocation. The joint spaces are normal. Small enthesophytes plates are seen at the lateral epicondyle and olecranon process. There is mild focal soft tissue swelling posteriorly overlying the dorsal aspect of the proximal ulna. No erosions are present. Bone mineralization is normal. No effusion is present. Right knee: No acute fracture or dislocation is seen. There is a degenerative changes in the medial compartment with mild subchondral sclerosis. There is mild spurring of the tibial spines. There is minimal patellofemoral osteophyte formation. No erosions are seen. Bone density is normal. There is no effusion. Left knee: No acute fracture or dislocation is present. There are mild degenerative change in the patellofemoral compartment with small osteophyte formation, but no significant joint space narrowing. The medial and lateral compartment joint spaces are normal. Bone density is normal. No erosions are seen. A small superior patellar enthesophyte is present. No effusion is present. Right foot: No acute fracture or dislocation is seen. There is moderate arthritis at the first metatarsophalangeal joint characterized by osteophyte formation, joint space narrowing, hypertrophy of the metatarsal head, subchondral cysts, and a few small erosions. Mild hallux valgus is present measuring 23 degrees. A small cyst versus erosion is suggested within the fifth proximal phalanx base. There are large posterior and small plantar calcaneal spurs. The third and fourth metatarsals are short. Bone density is normal. The first metatarsophalangeal angle is normal measuring 20 degrees. The other joint spaces are normal. There are large posterior and small plantar calcaneal spurs. Bone density is normal. The soft tissues are unremarkable. Left foot: No acute fracture or dislocation is seen. There is mild to moderate arthritis at the first metatarsophalangeal joint characterized by joint space narrowing, osteophyte formation, sclerosis, subchondral cysts, and possibly mild erosive change. There are also subchondral cysts versus small erosions at the interphalangeal joint. There is mild surrounding soft tissue swelling. The other joint spaces are normal. There are large posterior and small plantar calcaneal spurs. Bone density is normal. The first metatarsophalangeal joint angle is normal measuring 20 degrees. The third and fourth metatarsals are short. Sacroiliac joints: The sacroiliac joints are intact and symmetric bilaterally, without erosion, widening, sclerosis, narrowing, or ankylosis. The hip joint spaces are normal. Bone density is normal. Concavity is noted in the bone contour along both sides of the pubic symphysis, which may represent cysts or chronic erosions. Mild degenerative change is noted in the lower lumbar spine. Pelvic phleboliths are noted, left greater than right. Procedure Note John Sage MD - 03/01/2018 Exam: 1. XR HAND RIGHT 3+ VW, 2. XR ELBOW RIGHT 2 VW, 3. XR SACROILIAC JOINTS < 3 VW, 4. XR KNEE LEFT 3 VW, 5. XR KNEE RIGHT 3 VW, 6. XR FOOT LEFT 3+ VW, 7. XR FOOT RIGHT 3+ VW, 8. XR HAND LEFT 3+ VW, 9. XR ELBOW LEFT 2 VW History: 45-year-old male with arthralgia. Please evaluate for Jointpains. Comparison: None available. Findings: Right hand: There is no fracture or dislocation. The joint spaces are normal. Noerosions are present. Bone mineralization is normal. The soft tissues arenormal. Left hand: There is no fracture or dislocation. The joint spaces are normal. Noerosions are present. Bone mineralization is normal. The soft tissues arenormal. Right elbow: There is no fracture or dislocation. The joint spaces are normal. Noerosions are present. Bone mineralization is normal. No effusion ispresent. Left elbow: There is no fracture or dislocation. The joint spaces are normal. Smallenthesophytes plates are seen at the lateral epicondyle and olecranonprocess. There is mild focal soft tissue swelling posteriorly overlyingthe dorsal aspect of the proximal ulna. No erosions are present. Bone mineralization is normal. No effusion ispresent. Right knee: No acute fracture or dislocation is seen. There is a degenerative changesin the medial compartment with mild subchondral sclerosis. There is mildspurring of the tibial spines. There is minimal patellofemoral osteophyteformation. No erosions are seen. Bone density is normal. There is no effusion. Left knee: No acute fracture or dislocation is present. There are mild degenerativechange in the patellofemoral compartment with small osteophyte formation,but no significant joint space narrowing. The medial and lateralcompartment joint spaces are normal. Bone density is normal. No erosions are seen. A small superior patellarenthesophyte is present. No effusion is present. Right foot: No acute fracture or dislocation is seen. There is moderate arthritis atthe first metatarsophalangeal joint characterized by osteophyte formation,joint space narrowing, hypertrophy of the metatarsal head, subchondralcysts, and a few small erosions. Mild hallux valgus is present measuring 23 degrees. A small cyst versuserosion is suggested within the fifth proximal phalanx base. There arelarge posterior and small plantar calcaneal spurs. The third and fourthmetatarsals are short. Bone density is normal. The first metatarsophalangeal angle is normal measuring 20degrees. The other joint spaces are normal. There are large posterior andsmall plantar calcaneal spurs. Bone density is normal. The soft tissuesare unremarkable. Left foot: No acute fracture or dislocation is seen. There is mild to moderatearthritis at the first metatarsophalangeal joint characterized by jointspace narrowing, osteophyte formation, sclerosis, subchondral cysts, andpossibly mild erosive change. There are also subchondral cysts versus small erosions at the interphalangeal joint.There is mild surrounding soft tissue swelling. The other joint spaces arenormal. There are large posterior and small plantar calcaneal spurs. Bonedensity is normal. The first metatarsophalangeal joint angle is normal measuring 20 degrees. The thirdand fourth metatarsals are short. Sacroiliac joints: The sacroiliac joints are intact and symmetric bilaterally, withouterosion, widening, sclerosis, narrowing, or ankylosis. The hip jointspaces are normal. Bone density is normal. Concavity is noted in the bonecontour along both sides of the pubic symphysis, which may represent cysts or chronic erosions. Milddegenerative change is noted in the lower lumbar spine. Pelvic phlebolithsare noted, left greater than right. IMPRESSION IMPRESSION: 1. No arthritis in the right or left hands. 2. No arthritis in the right elbow. 3. Small enthesophytes in the left elbow at the lateral epicondyle andolecranon process. Mild focal soft tissue swelling posteriorly over theproximal ulna. 4. Mild osteoarthritis in both knees, left greater than right. 5. Arthritis at the first metatarsophalangeal joints of both feet,moderate on the right and mild to moderate on the left, with smallerosions at least on the right. The appearance is very suggestive of gout.Osteoarthritis is also in the differential. Mild hallux valgus is noted on the right, and calcaneal spurs are presentbilaterally. Brachydactyly affecting the third and fourth metatarsals isnoted bilaterally. 6. Normal sacroiliac joints. Cysts or chronic erosions are noted on bothsides of the pubic symphysis. This report was electronically signed by JOHN SAGE MD on 02/23/20162:08 PM . Bob Pressley MD DIAGNOSTIC IMAGING O [facility] * XR SI JOINTS 2VW OR LESS (02/23/2016 12:40 PM CDT) Anatomical Region Laterality Modality Pelvis, Lower Extremity Other Impressions 02/23/2016 2:08 PM CDT IMPRESSION: 1. No arthritis in the right or left hands. 2. No arthritis in the right elbow. 3. Small enthesophytes in the left elbow at the lateral epicondyle and olecranon process. Mild focal soft tissue swelling posteriorly over the proximal ulna. 4. Mild osteoarthritis in both knees, left greater than right. 5. Arthritis at the first metatarsophalangeal joints of both feet, moderate on the right and mild to moderate on the left, with small erosions at least on the right. The appearance is very suggestive of gout. Osteoarthritis is also in the differential. Mild hallux valgus is noted on the right, and calcaneal spurs are present bilaterally. 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 6. Normal sacroiliac joints. Cysts or chronic erosions are noted on both sides of the pubic symphysis. This report was electronically signed by JOHN SAGE MD on 02/23/2016 2:08 PM . Narrative 02/23/2016 2:08 PM CDT Exam: 1. XR HAND RIGHT 3+ VW, 2. XR ELBOW RIGHT 2 VW, 3. XR SACROILIAC JOINTS < 3 VW, 4. XR KNEE LEFT 3 VW, 5. XR KNEE RIGHT 3 VW, 6. XR FOOT LEFT 3+ VW, 7. XR FOOT RIGHT 3+ VW, 8. XR HAND LEFT 3+ VW, 9. XR ELBOW LEFT 2 VW History: 45-year-old male with arthralgia. Please evaluate for Joint pains. Comparison: None available. Findings: Right hand: There is no fracture or dislocation. The joint spaces are normal. No erosions are present. Bone mineralization is normal. The soft tissues are normal. Left hand: There is no fracture or dislocation. The joint spaces are normal. No erosions are present. Bone mineralization is normal. The soft tissues are normal. Right elbow: There is no fracture or dislocation. The joint spaces are normal. No erosions are present. Bone mineralization is normal. No effusion is present. Left elbow: There is no fracture or dislocation. The joint spaces are normal. Small enthesophytes plates are seen at the lateral epicondyle and olecranon process. There is mild focal soft tissue swelling posteriorly overlying the dorsal aspect of the proximal ulna. No erosions are present. Bone mineralization is normal. No effusion is present. Right knee: No acute fracture or dislocation is seen. There is a degenerative changes in the medial compartment with mild subchondral sclerosis. There is mild spurring of the tibial spines. There is minimal patellofemoral osteophyte formation. No erosions are seen. Bone density is normal. There is no effusion. Left knee: No acute fracture or dislocation is present. There are mild degenerative change in the patellofemoral compartment with small osteophyte formation, but no significant joint space narrowing. The medial and lateral compartment joint spaces are normal. Bone density is normal. No erosions are seen. A small superior patellar enthesophyte is present. No effusion is present. Right foot: No acute fracture or dislocation is seen. There is moderate arthritis at the first metatarsophalangeal joint characterized by osteophyte formation, joint space narrowing, hypertrophy of the metatarsal head, subchondral cysts, and a few small erosions. Mild hallux valgus is present measuring 23 degrees. A small cyst versus erosion is suggested within the fifth proximal phalanx base. There are large posterior and small plantar calcaneal spurs. The third and fourth metatarsals are short. Bone density is normal. The first metatarsophalangeal angle is normal measuring 20 degrees. The other joint spaces are normal. There are large posterior and small plantar calcaneal spurs. Bone density is normal. The soft tissues are unremarkable. Left foot: No acute fracture or dislocation is seen. There is mild to moderate arthritis at the first metatarsophalangeal joint characterized by joint space narrowing, osteophyte formation, sclerosis, subchondral cysts, and possibly mild erosive change. There are also subchondral cysts versus small erosions at the interphalangeal joint. There is mild surrounding soft tissue swelling. The other joint spaces are normal. There are large posterior and small plantar calcaneal spurs. Bone density is normal. The first metatarsophalangeal joint angle is normal measuring 20 degrees. The third and fourth metatarsals are short. Sacroiliac joints: The sacroiliac joints are intact and symmetric bilaterally, without erosion, widening, sclerosis, narrowing, or ankylosis. The hip joint spaces are normal. Bone density is normal. Concavity is noted in the bone contour along both sides of the pubic symphysis, which may represent cysts or chronic erosions. Mild degenerative change is noted in the lower lumbar spine. Pelvic phleboliths are noted, left greater than right. Procedure Note John Sage MD - 03/01/2018 Exam: 1. XR HAND RIGHT 3+ VW, 2. XR ELBOW RIGHT 2 VW, 3. XR SACROILIAC JOINTS < 3 VW, 4. XR KNEE LEFT 3 VW, 5. XR KNEE RIGHT 3 VW, 6. XR FOOT LEFT 3+ VW, 7. XR FOOT RIGHT 3+ VW, 8. XR HAND LEFT 3+ VW, 9. XR ELBOW LEFT 2 VW History: 45-year-old male with arthralgia. Please evaluate for Jointpains. Comparison: None available. Findings: Right hand: There is no fracture or dislocation. The joint spaces are normal. Noerosions are present. Bone mineralization is normal. The soft tissues arenormal. Left hand: There is no fracture or dislocation. The joint spaces are normal. Noerosions are present. Bone mineralization is normal. The soft tissues arenormal. Right elbow: There is no fracture or dislocation. The joint spaces are normal. Noerosions are present. Bone mineralization is normal. No effusion ispresent. Left elbow: There is no fracture or dislocation. The joint spaces are normal. Smallenthesophytes plates are seen at the lateral epicondyle and olecranonprocess. There is mild focal soft tissue swelling posteriorly overlyingthe dorsal aspect of the proximal ulna. No erosions are present. Bone mineralization is normal. No effusion ispresent. Right knee: No acute fracture or dislocation is seen. There is a degenerative changesin the medial compartment with mild subchondral sclerosis. There is mildspurring of the tibial spines. There is minimal patellofemoral osteophyteformation. No erosions are seen. Bone density is normal. There is no effusion. Left knee: No acute fracture or dislocation is present. There are mild degenerativechange in the patellofemoral compartment with small osteophyte formation,but no significant joint space narrowing. The medial and lateralcompartment joint spaces are normal. Bone density is normal. No erosions are seen. A small superior patellarenthesophyte is present. No effusion is present. Right foot: No acute fracture or dislocation is seen. There is moderate arthritis atthe first metatarsophalangeal joint characterized by osteophyte formation,joint space narrowing, hypertrophy of the metatarsal head, subchondralcysts, and a few small erosions. Mild hallux valgus is present measuring 23 degrees. A small cyst versuserosion is suggested within the fifth proximal phalanx base. There arelarge posterior and small plantar calcaneal spurs. The third and fourthmetatarsals are short. Bone density is normal. The first metatarsophalangeal angle is normal measuring 20degrees. The other joint spaces are normal. There are large posterior andsmall plantar calcaneal spurs. Bone density is normal. The soft tissuesare unremarkable. Left foot: No acute fracture or dislocation is seen. There is mild to moderatearthritis at the first metatarsophalangeal joint characterized by jointspace narrowing, osteophyte formation, sclerosis, subchondral cysts, andpossibly mild erosive change. There are also subchondral cysts versus small erosions at the interphalangeal joint.There is mild surrounding soft tissue swelling. The other joint spaces arenormal. There are large posterior and small plantar calcaneal spurs. Bonedensity is normal. The first metatarsophalangeal joint angle is normal measuring 20 degrees. The thirdand fourth metatarsals are short. Sacroiliac joints: The sacroiliac joints are intact and symmetric bilaterally, withouterosion, widening, sclerosis, narrowing, or ankylosis. The hip jointspaces are normal. Bone density is normal. Concavity is noted in the bonecontour along both sides of the pubic symphysis, which may represent cysts or chronic erosions. Milddegenerative change is noted in the lower lumbar spine. Pelvic phlebolithsare noted, left greater than right. IMPRESSION IMPRESSION: 1. No arthritis in the right or left hands. 2. No arthritis in the right elbow. 3. Small enthesophytes in the left elbow at the lateral epicondyle andolecranon process. Mild focal soft tissue swelling posteriorly over theproximal ulna. 4. Mild osteoarthritis in both knees, left greater than right. 5. Arthritis at the first metatarsophalangeal joints of both feet,moderate on the right and mild to moderate on the left, with smallerosions at least on the right. The appearance is very suggestive of gout.Osteoarthritis is also in the differential. Mild hallux valgus is noted on the right, and calcaneal spurs are presentbilaterally. Brachydactyly affecting the third and fourth metatarsals isnoted bilaterally. 6. Normal sacroiliac joints. Cysts or chronic erosions are noted on bothsides of the pubic symphysis. This report was electronically signed by JOHN SAGE MD on 02/23/20162:08 PM . Bob Pressley MD DIAGNOSTIC IMAGING O [facility] Care Teams Dispatcher [employer]active [employer] Disposal Relationship Specialty Start Date End Date Tonya Andrade PA-C PCP - General 02/23/16
--- OUTSIDE RECORDS SUMMARY | 2025-01-18 22:15 | XMS_ITS | Clinical Summary ---
Author Organization [facility] Address [address] [place] [address] Care Team Providers Care Supervisor Pipeline Maintenance Name Role Phone Tonya Andrade PA-C Primary Care Provider [phone] Source Comments [facility],non-owned Affiliates and Associated Physician Practices is amultiple site organization consisting of ambulatory clinics and hospital sitesin [place], [place], [place] and [place]. This disclosure is being madepursuant to the Care Everywhere program and may not contain all information available regarding this patient. Last updated 18.[facility] Allergies Active Allergy Reactions Criticality Noted Date Comments Codeine Skin Reactions Medium 02/23/2016 Patient reports that he has taken hydrocodone and hydromorphone in the past with no issues. Medications * Be aware that medications may not be up to date on this document. Alwaysverify current medications with the patient. Medication Sig Dispensed Refills Start Date End Date Status DULoxetine (CYMBALTA) 30 MG capsule 60 tablet 5 11/05/2017 Active indomethacin (INDOCIN) 50 MG capsule 0 10/03/2017 Active losartan (COZAAR) 50 MG tablet Take 50 mg by mouth DAILY. 12 10/08/2017 Active hydroCHLOROthiazide (HYDRODIURIL) 25 MG tablet 12 10/08/2017 Active magnesium oxide (MAGNESIUM-OXIDE) 400 (241.3 MG) MG tablet Take 400 mg by mouth DAILY. 12 10/08/2017 Active Cholecalciferol (VITAMIN D3) 14571 UNITS TABS Take by mouth. 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 03/21/2017 Pain in right ankle 02/23/2016 Pain in left ankle 02/23/2016 Paresthesia of skin 02/23/2016 Family History Medical History Relation Name Comments Cancer Father Pancreatic; Sta tus: Cancer Mother Colon; Status: Relation Name Status Comments Father Mother Social History Tobacco Use Types Packs/Day [...] Comments Blood Pressure 130/90 11/05/2017 11:18 AM FEED MILLER Pulse 60 11/05/2017 11:18 AM FEED MILLER Temperature 36.7 C (98 F) 11/05/2017 11:18 AM FEED MILLER Respiratory Rate 18 06/11/2017 8:03 AM CDT Oxygen Saturation 97% 06/11/2017 8:03 AM CDT Inhaled Oxygen Concentration - - Weight 94.8 kg (209 lb) 11/05/2017 11:18 AM FEED MILLER Height 177.8 cm (5' 10 ) 11/05/2017 11:18 AM FEED MILLER Body Mass Index 29.99 11/05/2017 11:18 AM FEED MILLER Plan of Treatment Health Maintenance Due Date Last Done Comments COLOGUARD (AGES 45-75) - COL ON CA SCREENING 1971 COLON MONITORING 1971 COLONOSCOPY - COLON CA SCREENING 1971 CT COLONOGRAPHY - COLON CA SCREENING 1971 Colorectal Cancer Screening 1971 FIT - COLON CA SCREENING 1971 FLEX SIG - COLON CA SCREENING 1971 LIPID TESTING 1971 HIV SCREENING 1986 DTAP/TDAP/TD VACCINES (1 - Tdap) 1990 HEPATITIS B VACCINE (1 of 3 - 19+ 3-dose series) 1990 PNEUMOCOCCAL VACCINE 50+ (1 of 2 - PCV) 1990 PNEUMOCOCCAL VACCINE (1 of 2 - PCV) 1990 ZOSTER VACCINE (1 of 2) 2021 COVID-19 VACCINE (1 - 2023-2 5 season) 2024 INFLUENZA VACCINE (#1) 2024 DEPRESSION SCREENING 12/02/2024 HEPATITIS C SCREENING Completed 02/27/2016 HIB VACCINE Aged Out No longer eligi ble based on patient's age to complete this topic HPV VACCINE Aged Out No longer eligi ble based on patient's age to complete this topic MENINGOCOCCAL (Group B) VACCINE Aged Out No longer eligible based on patient's age to complete this topic MENINGOCOCCAL VACCINE Aged Out No daniel patrick eligible based on patient's age to complete this topic Procedures Procedure Name Priority Date/Time Associated Diagnosis Comments HEPATITIS C PCR PROGRESSIVE QL/QN Routine 02/27/2016 1:03 PM CDT from Last 3 Months or Most Recently Relevant to Health Maintenance Results * HEPATITIS C PCR PROGRESSIVE QL/QN (02/27/2016 1:03 PM CDT) Hepatitis C Antibody NON-REACTI VE NON-REACT [facility] Signal/Cutoff 0.02 <1.00 [facility] Comment: Test Performed at: [facility] [id number] [place] [address] CHEO FREEMAN DO,MPH 02/27/2016 1:03 PM CDT 02/27/2016 1:04 PM CDT Bob Pressley MD LAB - SEROLOGY ORDER [facility]) from Last 3 Months or Most Recently Relevant to Health Maintenance Care Teams Supervisor Pipeline Maintenance Relationship Specialty Start Date End Date Tonya Andrade PA-C PCP - General 02/23/16
--- OUTSIDE RECORDS SUMMARY | 2025-01-18 22:15 | XMS_ITS ---
Author Organization [place] [id number] [facility] Address [address] [place] [address] Care Team Providers Care Maid Cleaning Cooking Name Role Phone Rob Perales MD Primary Care Provider [phone] Active Problems Problem Noted Date Diagnosed Date Solitary pulmonary nodule 07/30/2024 Cigarette nicotine dependence in remission 07/30 History of renal cell carcinoma 07/30/2024 Obstructive sleep apnea 07/30/2024 Periodic limb movement 07/30/2024 Renal cell carcinoma 04/29/2015 Overview (03/14/2018): Description: S/P Left Partial Nx 07/13/2014 - Clear Cell Type Gr II, 4.3 cm, (-)margins Current Treatment and Therapy Plans No current plan information found. Past Treatment and Therapy Plans No past plan information found. Lifetime Dose Tracking * Chemical Lifetime Dose Automatic Entry Manual Entr y DLP 387 mGycm 387 mGycm 0 mGycm
--- OUTSIDE RECORDS SUMMARY | 2025-01-18 22:15 | XMS_ITS | Clinical Summary ---
Author Organization [facility] Address [address] [place] [phone] Phone Care Team Providers Care Service Support Representative Name Role Phone Unavailable Primary Care Provider Unavailabl e Medications Medication Sig Dispensed Refills Start Date End Date Status baclofen (LIORESAL) 10 MG tablet 1 tab 3 times daily PRN 0 11/05/2018 Active traZODone (DESYREL) 50 MG tablet 1 tab at HS PRN 0 11/05/2018 Active indomethacin (INDOCIN) 50 MG capsule one tab three times daily, as needed 0 09/03/2018 Active metFORMIN (GLUMETZA) 500 MG 24 hr tablet one tab two times daily 0 09/03/2018 Active allopurinol (ZYLOPRIM) 300 MG tablet one tab daily 0 09/03/2018 Active aspirin (ASPIRIN 81) 81 MG chewable tablet 1 tab once daily 0 11/05/2018 Active losartan (COZAAR) 25 MG tablet One daily 6 11/05/2018 Active ergocalciferol (VITAMIN D2) 93237 units capsule one tab once a week 0 09/03/2018 Ac tive atorvastatin (LIPITOR) 80 MG tablet one tab daily 0 09/03/2018 Active sildenafil (VIAGRA) 100 MG tablet use as directed 0 09/03/2018 Active Active Problems Problem Noted Date Diagnosed Date Disorder of kidney and ureter, unspecified 11/05 Hyperlipidemia 10/01/2018 Type 2 diabetes mellitus without complication Pain in joint 10/01/2018 Other specified abnormal finding of blood chemis try 09/03/2018 Essential (primary) hypertension 09/03/2018 Immunizations Name Administration Dates Next Due Influenza Split High Dose Pr eservative Free IM 11/05/2018(Deferred: Patient Refused) Family History Medical History Relation Comments Malignant neoplastic disease Father Malignant neoplastic disease Mother Relation Status Comments Father Mother Social History Tobacco Use Types Packs/Day Years Used Date Smoking Tobacco: Former Smokeless Tobacco: Never Alcohol Use Standard Drinks/Week Comments No 0 (1 standard drink = 0.6 oz pur e alcohol) Sex and Gender Information Value Date Recorded Sex Assigned at Not on file Gender Identity Not on file Sexual Orientation Not on file Last Filed Vital Signs Vital Sign Reading Time Taken Comments Blood Pressure 168/100 11/05/2018 12:02 AM FLUID JET CUTTER OPERATOR Si tting, Right Pulse 96 11/05/2018 12:01 AM FLUID JET CUTTER OPERATOR Brac hial Temperature - - Respiratory Rate - - Oxygen Saturation - - Inhaled Oxygen Concentration - - Weight 99.8 kg (220 lb) 11/05/2018 12:01 AM FLUID JET CUTTER OPERATOR Height 175.3 cm (5' 9 ) 11/05/2018 12:01 AM FLUID JET CUTTER OPERATOR Body Mass Index 32.49 11/05/2018 12:01 AM FLUID JET CUTTER OPERATOR Plan of Treatment Health Maintenance Due Date Last Done Comments Influenza Vaccine (#1) 2024
--- OUTSIDE RECORDS SUMMARY | 2025-01-18 22:15 | XMS_ITS | Referral Summary ---
Author Organization [facility] Address [address] [place] [address] Care Team Providers Care Catering Sous Chef Name Role Phone Tonya Andrade PA-C Primary Care Provider [phone] Source Comments [facility],non-owned Affiliates and Associated Physician Practices is amultiple site organization consisting of ambulatory clinics and hospital sitesin [place], [place], [place] and [place]. This disclosure is being madepursuant to the Care Everywhere program and may not contain all information available regarding this patient. Last updated 18.[facility] [place] Allergies Active Allergy Reactions Criticality Noted Date [...] DAILY. 12 10/08/2017 Active Cholecalciferol (VITAMIN D3) 88107 UNITS TABS Take by mouth. 05/30/2017 Active [...] Comments Blood Pressure 130/90 11/05/2017 11:18 AM NATURAL RESOURCES FACULTY MEMBER Pulse 60 11/05/2017 11:18 AM NATURAL RESOURCES FACULTY MEMBER Temperature 36.7 C (98 F) 11/05/2017 11:18 AM NATURAL RESOURCES FACULTY MEMBER Respiratory Rate 18 06/11/2017 8:03 AM CDT Oxygen Saturation 97% 06/11/2017 8:03 AM CDT Inhaled Oxygen Concentration - - Weight 94.8 kg (209 lb) 11/05/2017 11:18 AM NATURAL RESOURCES FACULTY MEMBER Height 177.8 cm (5' 10 ) 11/05/2017 11:18 AM NATURAL RESOURCES FACULTY MEMBER Body Mass Index 29.99 11/05/2017 11:18 AM NATURAL RESOURCES FACULTY MEMBER Plan of Treatment Not on file Procedures Procedure Name Priority Date/Time Associated Diagnosis Comments HEPATITIS C PCR PROGRESSIVE QL/QN Routine 02/27/2016 1:03 PM CDT from Last 3 Months or Most Recently Relevant to Health Maintenance Results * HEPATITIS C PCR PROGRESSIVE QL/QN (02/27/2016 1:03 PM CDT) Hepatitis C Antibody NON-REACTI VE NON-REACT [facility] Signal/Cutoff 0.02 <1.00 [facility] Comment: Test Performed at: [email or web address] [address] [place] [address] CHEO FREEMAN DO,MPH 02/27/2016 1:03 PM CDT 02/27/2016 1:04 PM CDT Bob Pressley MD LAB - SEROLOGY ORDER [facility] from Last 3 Months or Most Recently Relevant to Health Maintenance Care Teams Catering Sous Chef Relationship Specialty Start Date End Date Tonya Andrade PA-C PCP - General 02/23/16
--- OUTSIDE RECORDS SUMMARY | 2025-01-18 22:15 | XMS_ITS | Continuity of Care Document ---
Author Organization [facility] Address [address] [place] [address] Phone Care Team Providers Care Forest Examiner Name Role Phone Gokul Barakat MD Unavailable Unavailable Allergies, Adverse Reactions, Alerts Substance Reaction Status Criticality codeine Active No Information Medications Medication Instructions Dosage Effective Dates (start - stop) Status Comments losartan 100 mg tablet take 1 tablet by oral route every day 100 MG - Active baclofen 20 mg tablet take 1 tablet by o ral route 3 times every day 20 MG - Active Effexor XR 37.5 mg capsule,extended release take 1 capsule by oral route every day with food 37.5 MG - Active allopurinol 300 mg tablet take 1 tablet by oral route every day 300 MG - Active indomethacin 25 mg capsule take 1 capsule by oral route 2 times every day with food 25 MG - Active Procedures Procedure Date PREV VISIT, NEW, AGE 40-64 Advance Directives Directive Yes / No Effective Date File Name No Information Encounters Encounter Description Practice Location Reason(s) For Visit Diagnoses Date Provider Providers Copied on Encounter [facility], [address] [place], [place], [id number], tel:[phone] [facility] No Information Yuval Hodgson. [address], [place], [id number], [place]. tel:[phone] PREV VISIT, NEW, AGE 40-64 [facility], [address] [place], [place], [id number], [place] tel:[phone] [facility] Medicine PHysical (chief complaint) Encntr for general adult medical exam w/o abnormal findings Yuval Hodgson. [address], [address], [place], [place], [id number], [place]. tel:[phone] Family History Family Member Type Diagnosis Age At Onset Mother Problem (finding) of unknown CA Sister Problem (finding) Alive and well Father Problem (finding) of pancreatic CA ( Cause Of ) 49 Payers Payer name Insurance type Covered green party ID Authoriza tion(s) No Information Social History Type Description Quantity Date Captured Comments Alcohol Use Details Unknown Caffeine Use Details Unknown Tobacco Use Status No Information Smoking Status No Information Sex Male Chief Complaint And Reason For Visit No Information Plan Of Treatment Date Type Action Status Goal Tobacco cessation counseling completed Goal Special diet education compl eted History Of Present Illness Encounter Date Complaint History Of Prese nt Illness PHysical Pt needs annual physical. Pt has severe low back and neck pain. Pt used to see neurosurgeon but has not see one for several years. Pt had two lumbar surgery in the past. Pt has bilateral sciatica and leg numbness. Pt denies any loss of bladder control. Pt takes allopurinol for elevated uric acid Pt has not had any gout attack for several years. Pt is s/p left partial nephrectomy due to renal CA. Pt is seeing nephrology now for unknown reason. Pt also is prediabetic. Pt is on metformin. Pt denies any polyuria polydipsia. Pt sees cardiology but he has not seen them for long time. He is out of BP meds Pt was told he has mild CAD Pt denies any chest pain. Pt feels mildly anxious and depressed Pt denies any suicidal or homicidal thought. Pt denies any crying spells. Pt has multiple vague complaints Instructions Date Instruction Additional Infor mation Special diet education Related t o Body mass index (BMI) 32.0-32.9, adult Increase activity. Related to En cntr for general adult medical exam w/o abnormal findings Assessments Type Assessment Date No Information
--- OUTSIDE RECORDS SUMMARY | 2025-01-18 22:15 | XMS_ITS | Clinical Summary ---
Author Organization [facility] Address [address] [place] [address] Phone Care Team Providers Care Oil Changer Name Role Phone Tonya Andrade Primary Care Provider Allergies Active Allergy Reactions Criticality Noted Date Comments Codeine Itching,Other (see Comments) 11/11/2018 Causes sunburn type skin irritation Medications allopurinol (ZYLOPRIM) 300 MG Tablet Take 300 mg by mouth daily. Active ASPIRIN 81 PO Take 81 mg by mouth daily. Active atorvastatin (LIPITOR) 80 MG Tablet Take 80 mg by mouth daily. Active indomethacin (INDOCIN) 50 MG Capsule Take 50 mg by mouth as needed. Active metFORMIN (GLUCOPHAGE) 500 MG Tablet Take 500 mg by mouth 2 times daily (with meals). Active baclofen (LIORESAL) 10 MG Tablet Take 10 mg by mouth as needed. Active traZODone (DESYREL) 50 MG Tablet Take 50 mg by mouth nightly. Active Cholecalciferol (VITAMIN D-3 PO) Take by mouth. Active vitamin D (CHOLECALCIFEROL ) 1000 UNIT Tablet Take 1,000 Units by mouth daily. Active LISINOPRIL PO Take 25 mg by mouth daily. Active sildenafil citrate (VIAGRA) 100 MG Tablet Take 100 mg by mouth as needed. 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 Peripheral polyneuropathy 11/11/2018 Chronic back pain 11/11/2018 Chronic kidney disease 11/11/2018 Family History Medical History Relation Name Comments Cancer Father Cancer Mother Relation Name Status Comments Father pancreas Mother brain cancer Social History Tobacco Use Types Packs/Day Years Used Date Smoking Tobacco: Former Cigarettes Q uit: 11/11/1998 Smokeless Tobacco: Never Alcohol Use Standard Drinks/Week Comments Yes 0 (1 standard drink = 0.6 oz pur e alcohol) occasionally Sex and Gender Information Value Date Recorded Sex Assigned at Not on file Legal Sex Male 7:35 PM CDT Gender Identity Not on file Sexual Orientation Not on file Last Filed Vital Signs Vital Sign Reading Time Taken Comments Blood Pressure 134/78 12/04/2018 3:17 PM FEED MILL LAB TECHNICIAN Pulse 76 12/04/2018 3:17 PM FEED MILL LAB TECHNICIAN Temperature 36 C (96.8 F) 12/04/2018 3:17 PM FEED MILL LAB TECHNICIAN Respiratory Rate 18 12/04/2018 3:17 PM FEED MILL LAB TECHNICIAN Oxygen Saturation 97% 12/04/2018 3:17 PM FEED MILL LAB TECHNICIAN Inhaled Oxygen Concentration - - Weight 100.2 kg (221 lb) 12/04/2018 3:17 PM FEED MILL LAB TECHNICIAN Height 175.3 cm (5' 9 ) 11/11/2018 9:01 AM FEED MILL LAB TECHNICIAN Body Mass Index 32.64 11/11/2018 9:01 AM FEED MILL LAB TECHNICIAN Plan of Treatment Health Maintenance Due Date Last Done Comments Hepatitis C Virus (HCV) Screening 1971 TdaP Immunization 1971 Hepatitis B Immunization (1 of 3 - 19+ 3-dose series) 1990 Colonoscopy 2016 Colorectal Cancer Screening 2016 Cologuard 2021 Immunochemical Fecal Occult Blood 2021 Pneumococcal Immunization (5 0+ years) (1 of 1 - PCV) 2021 Zoster Immunization (1 of 2) 2021 Influenza Immunization (#1) 2024 SARS-COV-2 Immunization (2023- season) 2024 11/08/2021, 04/16/2021, 03/14/2021 Respiratory Syncytial Virus (RSV) Immunization (Adult) (1 - 1-dose 75+ series) 2046 Meningococcal Immunization (ACWY) Aged Out No longer eligible b ased on patient's age to complete this topic Pneumococcal Immunization Combined Aged Out No longer eligible b ased on patient's age to complete this topic Rotavirus Immunization Aged Out No lo nger eligible based on patient's age to complete this topic Insurance MEDICAID [employer] Care Teams Oil Changer Relationship Specialty Start Date End Date Tonya Andrade PAC [address] [place] [address] PCP - General Physician Rn Urology 11/06/18
--- OUTSIDE RECORDS SUMMARY | 2025-01-18 22:15 | XMS_ITS | Data Portability ---
Author Organization [place] - [facility] OFFICE Address [address] [place] [address] Assessment No assessment recorded. Plan of Treatment Reminders Order Date Submit Date Provider Last Modified By Organization Details Last Modified Time Details Appointments None recorded. Lab None recorded. Referral None recorded. Procedures None recorded. Surgeries None recorded. Imaging electrocar diogram 2018 019 KIMI Not available 9 10:52:01 electrocar diogram 2016 017 [email or web address] Not available 7 18:40:03 electrocar diogram 2016 017 nurbanski Not available 7 18:40:27 Medication Orders aspirin 81 mg tablet,del ayed release 2020 021 [facility], [address], [place], [place], [id number], 14:57:43 atorvastat in 80 mg tablet 2020 021 [facility]11, [address], [place], [place], [id number], 14:57:44 Fish Oil 1,000 mg (120 mg-180 mg) capsule 2020 [facility] #65602, [address], [place], [id number], 14:57:41 hydrochlor othiazide 12.5 mg tablet 04/2020 [facility] #86749, [address], [place], [place], [id number], 14:57:45 losartan 50 mg tablet 2020 [facility] #70132, [address], [place], [place], [id number], 14:57:43 nitroglyce rin 0.4 mg sublingual tablet 2020 [facility] #94617, [address], [place], [place], [id number], 14:57:42 magnesium oxide 400 mg (241.3 mg magnesium) tablet 2020 [facility] #19563, [address], [place], [id number], 14:57:46 atorvastat in 80 mg tablet 2020 021 [facility] #63109, [address], [place], [id number], 13:54:25 hydrochlor othiazide 12.5 mg tablet 2020 021 [facility] #66788, [address], [place], [id number], 13:54:25 Cozaar 50 mg tablet 2020 [facility] #19905, [address], [place], [id number], 13:54:25 magnesium oxide 400 mg (241.3 mg magnesium) tablet 2020 [facility], [address], [place], [id number], 12:59:44 nitroglyce rin 0.4 mg sublingual tablet 2020 021 [facility] #72810, [address] , [place], [place], [id number], 13:54:23 aspirin 81 mg tablet,del ayed release 2020 021 [facility] #59338, [address] , [place], [place], [id number], 13:54:28 Fish Oil 1,000 mg (120 mg-180 mg) capsule 2020 021 [facility] #12271, [address], [place], [place], [id number], 13:54:24 hydrochlor othiazide 12.5 mg capsule 2020 021 [facility] #63399, [address], [place], [place], [id number], 12:59:20 atorvastat in 80 mg tablet 2018 019 [facility] #51004, [address], [place], [place], [id number], 13:00:28 Lasix 20 mg tablet 2018 019 [facility] #31344, [address], [place], [place], [id number], 13:01:32 hydrochlor othiazide 12.5 mg tablet 2018 019 [facility] #79646, [address] [facility], [place], [place], [id number], 13:01:42 Cozaar 50 mg tablet 2018 019 [facility] #02226, [address] , [place], [place], [id number], 1 13:01:51 magnesium oxide 400 mg (241.3 mg magnesium) tablet 2018 019 [facility] #93164, [address], [place], [place], [id number], 1 12:59:44 Cozaar 50 mg tablet 2016 017 [facility] #61005, [address] , [place], [place], [id number], 1 13:01:51 Cozaar 50 mg tablet 2016 017 [facility] #27023, [address], [place], [place], [id number], 1 13:01:51 hydrochlor othiazide 25 mg tablet 2016 017 [facility] #26985, [address] , [place], [place], [id number], 7 15:58:34 magnesium oxide 400 mg (241.3 mg magnesium) tablet 2016 017 [facility] #87461, [address] , [place], [place], [id number], 1 12:59:44 Patient TargetsNo targets recorded. Patient Instructions Encounter Date Encounter Id Patient Instructions Last Modified By Organization Details Last Modified Time 10/08/2017 [id number] chest pain: care instructions Not available 10/08/2017 17:24:53 high cholesterol : care instructions Not available 10/08/2017 17:24:53 11/05/2017 [id number] chest pain: care instructions [email or web address] Not available 11/06/2017 09:40:52 high cholesterol : care instructions hmesto Not available 11/06/2017 09:40:51 02/09/2019 [id number] chest pain: care instructions nurbanski Not available 02/09/2019 17:37:41 high cholesterol : care instructions nurbanski Not available 02/09/2019 17:37:42 02/02/2021 [id number] chest pain: care instructions nurbanski Not available 02/02/2021 13:54:16 high cholesterol : care instructions nurbanski Not available 02/02/2021 13:54:15 03/09/2021 [id number] chest pain: care instructions nurbanski Not available 03/09/2021 14:57:34 high cholesterol : care instructions nurbanski Not available 03/09/2021 14:57:35 Reason for Referral None Reported. Results Created Date Observation Date Name Description Value Unit Range Abnormal Flag Note LastModifiedBy Organization Detail LastModifiedTime 11/05/20 17 11/05/2017 elect rocar diogr am Result EK Sinus rhythm . Nonspe cific IVCD, NSTT change s. Not Available Jorge Luis Martínez [facility] [address], [place], [address], 11/05/2017 18:40:12 11/05/20 17 11/05/2017 elect rocar diogr am Result EK Sinus Rhythm . Within Normal LImits Not Available Jorge Luis Martínez [facility] [address], [place], [address], 11/05/2017 15:27:24 11/07/20 17 11/05/2017 elect rocar diogr am No observ ation record ed. [email or web address] Jorge Luis Martínez [facility] [address], [place], [address], 11/07/2017 16:44:37 02/11/20 19 02/09/2019 elect rocar diogr am No observ ation record ed. [email or web address] Not Available 02/10 09:50:10 02/07/20 21 02/02/2021 elect rocar diogr am No observ ation record ed. Not Available 2020 11:30:38 02/18/20 21 02/09/2021 dariela can cardi olite stres s test (PROC ) No observ ation record ed. Not Available 2020 09:49:51 02/21/20 21 02/20/2021 US, echoc ardio gram No observ ation record ed. [facility] [address] [facility] [address], [place], [address], 02/21/2021 12:15:54 02/25/20 21 02/20/2021 US, echoc ardio gram No observ ation record ed. [email or web address] Not Available 2020 10:33:09 02/28/20 21 02/20/2021 US, echoc ardio gram No observ ation record ed. [email or web address] Not Available 2020 11:26:03 Result Notes None recorded. Problems Name Problem SNOMED Code Status Onset Date Resolution Date Notes Provider Name and Address Organization Details Recorded Time Diastolic dysfunctio n 9411771 Active 2020 Raoul glass [facility] 14:54:29 Dyspnea 796455029 Active 2015 Jesusita glass [facility] 6 14:47:19 Benign hypertensi on 12303211 Active 2015 Jesusita glass [facility] 6 14:47:28 Hyperlipid emia 67125513 [facility] 2015 [facility] 6 14:47:37 Obstructiv e sleep apnea syndrome 44367300 Active 2015 AMAYA on CPQP, Dr. Glenn glass [facility] 6 16:04:02 Diabetes mellitus 50179486 Active 2015 HgbA1C 5.3 Raoul glass [facility] 7 14:35:33 Malignant tumor of kidney 503340376 Active 2015 s/p resection 2013 Halpancho Godinez [place], [place] - [facility] 6 14:48:54 Neuropathy due to diabetes mellitus 980122269 Active 2015 Halpancho Godinez [place] [facility] 6 14:49:28 Gout 06348309 Active 2015 Halpancho Godinez [place] [facility] 6 14:49:39 Carpal tunnel syndrome 68913783 Active 2015 Halpancho Godinez [place] [facility] 6 14:49:55 Spinal stenosis 19334256 Active 2015 Halpancho Godinez [place] [facility] 6 14:50:07 Anxiety 49372598 Active 2015 Jesusita God[place] [facility] 6 14:50:14 Chest pain 50367989 Active 2015 Raoul glass[place] [facility] 6 17:12:29 Pre-surger y evaluation Active 2016 Raouljoo Nguyen maria luisa, [place] - [facility] 7 17:44:19 Problem Notes None recorded. Procedures Surgical History None recorded. Imaging Results Imaging Date Name Status LastModified by Organization Details LastModified Time 11/05/2017 electrocardiogram completed [email or web address] Jorge Luis Wilson MD [address] [facility] [address], [place], [address], 11/07/2017 16:44:37 02/09/2019 [email or web address] Informa tion not available 02/10/2019 09:50:10 02/02/2021 electrocardiogram completed Informa tion not available 02/06/2021 11:30:38 02/09/2021 lexiscan cardiolite stress test (PROC) completed Information not available 02/22/2021 09:49:51 02/20/2021 , echocardiogram completed [facility] [address] [facility] [address], [place], [address], 02/21/2021 12:15:54 02/20/2021 US, echocardiogram completed Inform ation not available 02/24/2021 10:33:09 02/20/2021 US, echocardiogram completed [email or web address] Inform ation not available 02/28/2021 11:26:03 Procedure Notes None recorded. Medical Equipment None Reported. Allergies Allergen ID Allergen Name Allergen Category Reaction Reaction Severity Criticality Documentation Date Start Date Code Code System Note Provider Name and Address Organization Details Recorded Time 81087 codeine medicatio n itching Not available Not available 03/09/2021 6230 RxNorm JUAN PABLO LANGE [facility], [place] - [facility] 12:55:37 Medications Name Sig Start Date Stop Date Status Note LastModified by Organization Details LastModified Time losartan 50 mg tablet TAKE 1 TABLET BY MOUTH EVERY DAY active Not Available Not Available No t Available metformin 500 mg tablet 02/02 completed pt not taking 02/02/21 Not Available Not Available Not Available atorvastat in 80 mg tablet TAKE 1 TABLET BY MOUTH EVERY EVENING active Not Available Not Available No t Available venlafaxin e ER 37.5 mg capsule,ex tended release 24 hr active pt not taking 02/02/21 Not Available Not Available Not Available trazodone 50 mg tablet 1 tab as needed 11/05 completed PRN Not Available Not Available Not Available lisinopril 20 mg-hydroch lorothiazi de 12.5 mg tablet 11/05 completed Not Available Not Available Not Available hydrocodon e 5 mg-acetami nophen 325 mg tablet 10/08 completed Not Available Not Available Not Available prednisone 20 mg tablet 02/02 completed pt not taking 02/02/21 Not Available Not Available Not Available gabapentin 400 mg capsule QID 11/05 completed Not Available Not Available Not Available sertraline 100 mg tablet 04/09 completed Not Available Not Available Not Available hydroxyzin e pamoate 50 mg capsule 04/09 completed Not Available Not Available Not Available amlodipine 5 mg tablet 02/02 completed pt not taking 02/02/21 Not Available Not Available Not Available hydrocodon e 10 mg-acetami nophen 325 mg tablet 04/09 completed Not Available Not Available Not Available aspirin 81 mg tablet,del ayed release Take 1 tablet every day by oral route. 2020 active Not Available Not Available Not Avai lable tramadol 50 mg tablet TAKE 1 TABLET BY MOUTH TWICE DAILY active Not Available Not Available No t Available oxycodone- acetaminop hen 5 mg-325 mg tablet 10/04 completed Not Available Not Available Not Available Aspirin Low Strength 81 mg chewable tablet Chew 1 tablet every day by oral route. 02/02 completed Not Available Not Available Not Available amitriptyl ine 25 mg tablet 1 tab qd as needed 10/08 completed Not Available Not Available Not Available magnesium oxide 400 mg (241.3 mg magnesium) tablet TAKE 1 TABLET BY MOUTH EVERY DAY active Not Available Not Available No t Available methocarba mol 750 mg tablet TK 1 T PO TID PRN active pt not taking 02/02/21 Not Available Not Available Not Available DOK 100 mg capsule Take 1 capsule as needed by oral route for 30 days. 02/02 completed pt not taking 02/02/21 Not Available Not Available Not Available tamsulosin 0.4 mg capsule 1 tab qd 04/09 completed Not Available Not Available Not Available baclofen 10 mg tablet 02/02 completed pt not taking 02/02/21 Not Available Not Available Not Available amlodipine 10 mg tablet Take 1 tablet every day by oral route. 10/08 completed Not Available Not Available Not Available metformin 1,000 mg tablet Take 1 tablet twice a day by oral route. 10/08 completed Not Available Not Available Not Available triamcinol one acetonide 0.1 % topical ointment active pt not taking 02/02/21 Not Available Not Available Not Available losartan 25 mg tablet 02/09 completed Not Available Not Available Not Available indomethac in 50 mg capsule TAKE 1 CAPSULE BY MOUTH THREE TIMES DAILY NEEDED active Not Available Not Available No t Available hydrochlor othiazide 12.5 mg capsule 1 tab qd 03/09 completed pt not taking 02/02/21 Not Available Not Available Not Available nitroglyce rin 0.4 mg sublingual tablet ONE TABLET UNDER TONGUE NEEDED FOR CHEST PAIN active Not Available Not Available No t Available sertraline 25 mg tablet 10/04 completed Not Available Not Available Not Available omeprazole 20 mg capsule,de layed release Take 1 capsule every day by oral route. 04/09 completed Not Available Not Available Not Available allopurino l 300 mg tablet Take 1 tablet every day by oral route. 02/02 completed pt not taking 02/02/21 Not Available Not Available Not Available hydrochlor othiazide 25 mg tablet Take 1 tablet every day by oral route. 11/05 completed Not Available Not Available Not Available furosemide 20 mg tablet Take 0.5 tablets as needed by oral route. 02/02 completed pt not taking 02/02/21 Not Available Not Available Not Available ergocalcif tennille (vitamin D2) 1,250 mcg (50,000 unit) capsule once a week 02/02 completed pt not taking 02/02/21 Not Available Not Available Not Available colchicine 0.6 mg tablet 10/08 completed Not Available Not Available Not Available lisinopril 40 mg tablet Take 1 tablet every day by oral route. 10/08 completed Not Available Not Available Not Available losartan 100 mg tablet 02/09 completed Not Available Not Available Not Available fluticason e propionate 50 mcg/actuat ion nasal spray,susp ension 10/04 completed Not Available Not Available Not Available naproxen 500 mg tablet 10/08 completed Not Available Not Available Not Available diazepam 5 mg tablet Take 1 tablet as needed by oral route for 20 days. 11/05 completed Not Available Not Available Not Available Ventolin HFA 90 mcg/actuat ion aerosol inhaler Inhale 2 puffs every 4 hours by inhalati on route. 02/02 completed prn Not Available Not Available Not Available oxycodone 5 mg tablet Take 1 tablet as needed by oral route for 20 days. 11/05 completed Not Available Not Available Not Available duloxetine 30 mg capsule,de layed release 02/09 completed Not Available Not Available Not Available promethazi ne PRN 04/09 completed Not Available Not Available Not Available hydrochlor othiazide 12.5 mg tablet TAKE 1 TABLET BY MOUTH EVERY DAY 2020 active Not Available Not Available Not Avai lable Fish Oil 1,000 mg (120 mg-180 mg) capsule Take 2 capsules every day by oral route. 2020 active PRN Not Available Not Available Not Avai lable Vitals Date Recorded Body height Body mass index (BMI) Body weight Oxygen saturation Oxygen saturation in Arterial blood by Pulse oximetry Heart rate Systolic blood pressure Diastolic blood pressure Provider Name and Address Organization Details Last Updated DateTime 7 177.8 cm 30.1 kg/m2 33561.4 g 98 % 98 % 57 /min 138 mm[Hg] 90 mm[Hg] Jada Sotomayorjustin [facility] 7 14:13:28 Date Recorded Body height Body mass index (BMI) Body weight Oxygen saturation Oxygen saturation in Arterial blood by Pulse oximetry Heart rate Systolic blood pressure Diastolic blood pressure Provider Name and Address Organization Details Last Updated DateTime 7 177.8 cm 30.4 kg/m2 40804.5 8 g 98 % 98 % 69 /min 128 mm[Hg] 80 mm[Hg] Dyana Brown [facility] 7 15:33:09 Date Recorded Body height Body mass index (BMI) Body weight Heart rate Respiratory rate Oxygen saturation Oxygen saturation in Arterial blood by Pulse oximetry Systolic blood pressure Diastolic blood pressure Provider Name and Address Organization Details Last Updated DateTime 9 177.8 cm 30.4 kg/m2 08975.5 8 g 81 /min 18 /min 98 % 98 % 180 mm[Hg] 108 mm[Hg] Pauline Woodson [facility] 9 16:27:53 Date Recorded Body height Body mass index (BMI) Body weight Body temperature Heart rate Oxygen saturation Oxygen saturation in Arterial blood by Pulse oximetry Systolic blood pressure Diastolic blood pressure Provider Name and Address Organization Details Last Updated DateTime 1 177.8 cm 30 kg/m2 22554.8 1 g 97.3 [degF] 61 /min 97 % 97 % 160 mm[Hg] 92 mm[Hg] JUAN PABLO LANGE [facility] 1 12:57:11 Social History Question Answer Notes LastModified by Organizat ion Details LastModified Time Tobacco Smoking Status Former Smoker quitlong time ago Ana glass [facility] 10/04/2016 00:24:35 What Is Your Level Of Alcohol Consumption? None Information not available 10/04/2016 Do You Or Have You Ever Used E-cigarettes Or Vape? Never Used Electronic Cigarettes Information not available 02/22/2021 What Was The Date Of Your Most Recent Tobacco Screening? 02/09/2019 Information not available 06/25/2019 Do You Or Have You Ever Used Smokeless Tobacco? Former Smokeless Tobacco User Information not available 02/22/2021 Sex: Unknown Functional Status None recorded. Mental Status None recorded. Family History Relationship Description Onset Age of this Age Resolved Age Notes LastModified by Organization Details LastModified Time Mother Mother at age 66 of Cancer hmesto Not available 10/04/2016 00:12:55 Father Father hmesto Not available 2015 00:13:08 Sister Family history of Sister alive and well hmesto Not available 2015 00:15:29 Notes:No Known premature Cor onary artery disease in the family Medical History Condition Response Cancer Y Diabetes Y Hyperlipidemia Y Sleep Apnea Y Hypertension Y Past Encounters Encounter ID Performer Location Encounter Start Date Encounter Closed Date Diagnosis/Indication Diagnosis SNOMED-CT Code Diagnosis ICD10 Code Diagnosis Note [id number] Raoul [place] [address] [place] [address] 10/04/2016 15:07:36 10/08/2016 14:06:31 Benign hypertension 52850065 I10 Patient's blood pressure is {{well-con trolled* n ot well-contr olled}} on present medical therapy. Patient is {{tolerati ng, without difficulty ,* having side effects with}} the current medication s. I have {{not made* made the following} } changes to the current regimen. {{ Patient is advised to maintain a blood pressure diary.*}} Cont low Na diet. Hyperlipidemia 64469059 E78.5 Will check lipids . Cont statin. Chest pain 47345462 R07. 9 Patient presents with {{chest* a rm back ja w}} pain {{typical of angina wit h atypical features*} }. Given the history, exam findings and {{high int ermediate * low}} cardiac risk factors, I {{feel* do not feel}} additional investigat ion is warranted. I have made arrangemen ts in the near future for {{an exercise stress echocardio gram to evaluate for any ischemia, structural heart disease, or exercise induced arrythmia an exercise stress nuclear test an exercise stress nuclear test (stress echo not possible due to COPD or obesity) a n exercise stress nuclear test and an echocardio gram to evaluate for any ischemia or structural heart disease a pharmacolo gic stress nuclear test due to reduced functional capacity or conduction abnormalit y* cardiac catheteriz ation an echocardio gram to evaluate left ventricula r function and any structural heart disease or valvular abnormalit y}}. The procedure was discussed with the patient, and risks, benefits, and alternativ e options were explained. {{ The patient was informed about heart catheteriz ation and interventi onal procedures and agrees to proceed.}} Appropriat e labwork {{has has not*}} been performed recently, therefore I {{have not have*} } made arrangemen ts for further testing. I have asked the patient to curtail exercise and activities until our investigat ion is complete. I have {{made no made the following* }} adjustment s to the present medical regimen. [id number] Raoul [facility] [address] [facility] [address] [place] [address] 04/09/2017 15:46:18 04/10/2017 08:51:17 Benign hypertension [id number] I10 Patient's blood pressure is {{well-con trolled* n ot well-contr olled}} on present medical therapy. Patient is {{tolerati ng, without difficulty ,* having side effects with}} the current medication s. I have {{not made* made the following} } changes to the current regimen. {{ Patient is advised to maintain a blood pressure diary.*}} Cont low Na diet. Hyperlipidemia 04005948 E78.5 Patient's hyperlipid emia is {{well-con trolled no t well-contr olled*}} on present medical therapy. Patient is {{tolerati ng, without difficulty ,* having side effects with}} the current medication s. I have {{not made made the following* }} changes to the current regimen: start fish oil. Cont low cholestero l diet. Chest pain 01154494 R07. 9 Recent stress test negative. Normal LV function Pre-surger y evaluation 213394140 Z01.818 Pt is going for back surgery he has low risk for moderate risk surgery. To decrease perioperat andree risk pt needs to cont statin [id number] Raoul [place] Office [address] [facility] [address] [place] [address] 10/08/2017 14:00:55 10/09/2017 10:51:50 Benign hypertension [id number] I10 Patient's blood pressure is {{well-con trolled no t well-contr olled*}} on present medical therapy. Patient is {{tolerati ng, without difficulty ,* having side effects with}} the current medication s. I have {{not made made the following* }} changes to the current regimen: starrt Cozaar 50 QD, HCTZ 12.5 qd, cont Amlodipine 2.5 QD{{ Patie nt is advised to maintain a blood pressure diary.*}} Cont low Na diet. Hyperlipidemia 43764725 E78.5 Patient's hyperlipid emia is {{well-con trolled no t well-contr olled*}} on present medical therapy. Patient is {{tolerati ng, without difficulty ,* having side effects with}} the current medication s. I have {{not made made the following* }} changes to the current regimen: start fish oil. Cont low cholestero l diet. Chest pain 40235382 R07. 9 Recent stress test negative. Normal LV function [id number] [facility] Danny [place] Office [address] [facility] [place] [address] 11/05/2017 14:53:08 11/06/2017 14:19:16 Chest pain 14108980 R07.9 Recent stress test negative. Normal LV function Benign hypertension 1072 5009 I10 Patient's blood pressure is {{well-con trolled* n ot well-contr olled}} on present medical therapy. Patient is {{tolerati ng, without difficulty ,* having side effects with}} the current medication s. I have {{not made* made the following} } changes to the current regimen:{{ Patient is advised to maintain a blood pressure diary.*}} Cont low Na diet.ECHO Hyperlipidemia 10379412 E78.5 Patient's hyperlipid emia is {{well-con trolled no t well-contr olled*}} on present medical therapy. Patient is {{tolerati ng, without difficulty ,* having side effects with}} the current medication s. I have {{not made made the following* }} changes to the current regimen: start fish oil. Cont low cholestero l diet.Lipid s [id number] Raoul [place] Office [address] [place] [address] 02/09/2019 16:08:43 02/09/2019 17:29:42 Chest pain 07673176 R07.9 remains asymptomat ichad cath before which showed normal coronaries last stress test negative. Normal LV functionco nt medical management and risk factor modificati on Benign hypertension 1072 5009 I10 Patient's blood pressure is {{well-con trolled no t well-contr olled*}} on present medical therapy. Patient is {{tolerati ng, without difficulty ,* having side effects with}} the current medication s. I have {{not made made the following* }} changes to the current regimen: add Lasix PRN, HCTZ and Cozaar{{ P atient is advised to maintain a blood pressure diary.*}} Cont low Na diet.ECHO Hyperlipidemia [id number] E78.5 Patient's hyperlipid emia is {{well-con trolled no t well-contr olled*}} on present medical therapy. Patient is {{tolerati ng, without difficulty ,* having side effects with}} the current medication s. I have {{not made made the following* }} changes to the current regimen: restart atorvastat in.Cont low cholestero l diet.Lipid s [id number] Raoul [facility] [address] OFF[address] [place] [address] 02/02/2021 12:25:16 02/02/2021 13:54:25 Chest pain 37902240 R07.9 Patient presents with {{chest* a rm back ja w}} pain {{typical of angina wit h atypical features*} }. Given the history, exam findings and {{high int ermediate * low}} cardiac risk factors, I {{feel* do not feel}} additional investigat ion is warranted. I have made arrangemen ts in the near future for {{an exercise stress echocardio gram to evaluate for any ischemia, structural heart disease, or exercise induced arrythmia an exercise stress nuclear test an exercise stress nuclear test (stress echo not possible due to COPD or obesity) a n exercise stress nuclear test and an echocardio gram to evaluate for any ischemia or structural heart disease a pharmacolo gic stress nuclear test due to reduced functional capacity or conduction abnormalit y* cardiac catheteriz ation an echocardio gram to evaluate left ventricula r function and any structural heart disease or valvular abnormalit y}}. The procedure was discussed with the patient, and risks, benefits, and alternativ e options were explained. {{ The patient was informed about heart catheteriz ation and interventi onal procedures and agrees to proceed.}} Appropriat e labwork {{has has not*}} been performed recently, therefore I {{have not have*} } made arrangemen ts for further testing. I have asked the patient to curtail exercise and activities until our investigat ion is complete. I have {{made no made the following* }} adjustment s to the present medical regimen. {{ Patient has been started on daily aspirin.}} {{ Patient has been given a prescripti on for sublingual nitroglyce rin.*}} ECHO Benign hypertension 1072 5009 I10 Patient's blood pressure is {{well-con trolled no t well-contr olled*}} on present medical therapy. Patient is {{tolerati ng, without difficulty ,* having side effects with}} the current medication s. I have {{not made made the following* }} changes to the current regimen: add HCTZ and Cozaar{{ P atient is advised to maintain a blood pressure diary.*}} Cont low Na diet.ECHO Hyperlipidemia [id number] E78.5 Patient's hyperlipid emia is {{well-con trolled no t well-contr olled*}} on present medical therapy. Patient is {{tolerati ng, without difficulty ,* having side effects with}} the current medication s. I have {{not made made the following* }} changes to the current regimen: restart atorvastat in.Cont low cholestero l diet.FLP [id number] Raoul Nguyen [place] OFFICE [address] [place] [address] 03/09/2021 12:51:20 03/09/2021 13:09:48 Chest pain [id number] R07.9 stress test negative, ECHO normal LV systolic function cont medical management and risk factor modificati on Benign hypertension 1072 9229 I10 Patient's blood pressure is {{well-con trolled no t well-contr olled*}} on present medical therapy. Patient is {{tolerati ng, without difficulty ,* having side effects with}} the current medication s. I have {{not made made the following* }} changes to the current regimen: add HCTZ and Cozaar{{ P atient is advised to maintain a blood pressure diary.*}} Cont low Na diet.ECHO Hyperlipidemia [id number] E78.5 Patient's hyperlipid emia is {{well-con trolled no t well-contr olled*}} on present medical therapy. Patient is {{tolerati ng, without difficulty ,* having side effects with}} the current medication s. I have {{not made made the following* }} changes to the current regimen: restart atorvastat in.Cont low cholestero l diet.FLP Diastolic dysfunction [id number] I51.9 Health Concerns Section Related Observation LastModified by Organization Detai ls LastModified Time None Recorded Concern Status LastModified by Organization Details LastModified Time None Recorded Advance Directives Directive None Recorded Payers Encounter Date Sequence Insurance Name Policy Number Policy Espinosa Covered Member ID Espinosa Member ID Guarantor Name 10/08/[address] [facility] PRIOR TO 06/01/2021 (MEDICAID REPLACEMENT - HMO) Cornelio Gamble [id number] Cornelio Gamble 11/05/[address] [facility] PRIOR TO 06/01/2021 (MEDICAID REPLACEMENT - HMO) Cornelio Gamble [id number] Cornelio Gamble 02/09/[address] [facility] PRIOR TO 06/01/2021 (MEDICAID REPLACEMENT - HMO) Cornelio Gamble [id number] Cornelio Gamble 02/02/2021 1 [facility] [place] Cornelio Gamble [id number] Cornelio Gamble 03/09/2021 1 [facility] (MEDICAID REPLACEMENT - HMO) [id number] Cornelio Gamble [id number] Cornelio Gamble Notes Date Note Type Note Provider Name and Address Organization Details Recorded Time 10/08/2017 text/html 47 years-old Whi te Male with h/o Hypertension, Hyperlipidemia, Obstructive Sleep Apnea,and Diabetes mellitus, is here for follow-up. Pt was last time in our offie about 6 months ago. Since then he feels fine. He had another back surgery at [facility]. He was told that his BP was low and they stopped his BP meds. After dc pt found that is BP is significantly elevated and his BP were just gradually restarted last week. Last week pt's DBP was high (100). Previously he used to have episodes of chest discomfort which was a sharp type of CP.. Oct he had lumbar surgery. He states that he had injuries to spinal cord. He does have thoracic and cervical spine problems. He had neuropathy as well as spinal stenosis. He does have urologist in [place]. He had partial kidney resection due to ca in the past. He does have kidney stones for long time. Neurologist (Dr. Nery Villanueva) at [facility]. Pt does have spinal stenosis. His ortho specialist was Dr. Leong at [facility] and he did back surgery. Now because of insurance issues he may need to change his doctor. Patient was seen last time in our office on 08/31/15 and underwent cardiac cath on 09/06/15 at [facility]. He was found to have normal coronaries by angiography. Right groin healed well that Patient was not able to locate access site. Sometimes his diastolic blood pressure is elevated to about 100 mmHg diastolic. 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 Had CATH done in 09/06/15 revealed Normal coronaries by angiography . Patient does have chronic Hypertension. After pain medications his blood pressure improved. He had ECHO done in 08/17/15 showed normal Left Ventricular Systolic Function , EF 55-60% and diastolic dysfunction. Had Positive dobutamine stress test done in 08/17/15. Results from this visit, or from the past:04/05/17: NA 142, K 4.0, CL 107, CO2 26, GLU 111, BUN 17, CR 1.18 , TC 132, TR 221, LDL 55, HDL 33 04/05/17 NA 142, K 4.0, CL 107, CO2 26, GLU 111, BUN 17, CR 1.18 04/05/17 TC 132, TR 221, LDL 55, HDL 33 09/10/16: SOD 143, K 4.5, CL 102, CO2 30, GL 135, BUN 13, CR 1.2 03/15/16: TC 135 ,TG 285 ,HDL 31 ,LDL 47 07/19/15 SOD 144, K 4.6, CL 104, Co2 23, GLU 143, BUN 20 ,CR 1.11,HgA1c 8.1 LIPIDS: 07/19/15 : TC 161. TG 244. LDL 175. HDL 39. AST 40. ALT 61 . EK10/08/17 Sinus rhythm. Nonspecific IVCD, NSTT changes. EK04/09/17 Sinus rhythm. Nonspecific IVCD, no STT changes. EK10/04/16 sinus rhythm, nonspecific IVCD, no STT changes. EKG/HOLTER: EK08/10/15 Sinus rhythm. P:. normal QRS:. normal. ST-T:. normal. conclusion normal ECG. Dobutamine Myocardial Perfusion Study 10/10/16 : Negative Dobutamine Stress test for ischemia Normal LV systolic function , No previous study to compare , LVEF 56% STRESS TEST: : 08/17/15 Positive dobutamine stress test. Normal LV systolic function. No previous study to compare. LVEF 59%. CARDIAC CATHETERIZATION: 09/06/15 PROCEDURE REPORT:Normal coronaries by angiography. ECHO: 08/17/15 The left ventricular size is normal. There is normal global left ventricular contractility. Overall left ventricular systolic function is normal with an EF 55-60%. The diastolic filling pattern indicates impaired relaxation. There is trace mitral regurgitation. Trace tricuspid regurgitation present. Trace/mild (physiologic) pulmonic regurgitation. CTA Chest: 09/10/16 No pulmonary embolism or acute cardiopulmonary abnormality although sensitivity is decreased by respiratory motion artifact. [facility] 10/08/2017 16:54:34 11/05/2017 text/html 47 years-old Whi te Male with h/o Hypertension, Hyperlipidemia, Obstructive Sleep Apnea,and Diabetes mellitus, is here for follow-up. Pt was last time in our offie about1 months ago. Since then he feels fine. States that he had some sweating of hand after starting Cozaar and stopped this med. He is not sure if symptoms were related to his anxiety or not. His BP remains well controlled. He had another back surgery at [facility]. He was told that his BP was low and they stopped his BP meds. After dc pt found that is BP is significantly elevated and his BP were just gradually restarted last week. Last week pt's DBP was high (100). Previously he used to have episodes of chest discomfort which was a sharp type of CP.. Oct he had lumbar surgery. He states that he had injuries to spinal cord. He does have thoracic and cervical spine problems. He had neuropathy as well as spinal stenosis. He does have urologist in [place]. He had partial kidney resection due to ca in the past. He does have kidney stones for long time. Neurologist (Dr. Nery Villanueva) at [facility]. Pt does have spinal stenosis. Losartan was causing seating His ortho specialist was Dr. Leong at [facility] and he did back surgery. Now because of insurance issues he may need to change his doctor. Patient was seen last time in our office on 08/31/15 and underwent cardiac cath on 09/06/15 at [facility]. He was found to have normal coronaries by angiography. Right groin healed well that Patient was not able to locate access site. Sometimes his diastolic blood pressure is elevated to about 100 mmHg diastolic. 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 Had CATH done in 09/06/15 revealed Normal coronaries by angiography . Patient does have chronic Hypertension. After pain medications his blood pressure improved. He had ECHO done in 08/17/15 showed normal Left Ventricular Systolic Function , EF 55-60% and diastolic dysfunction. Had Positive dobutamine stress test done in 08/17/15. Results from this visit, or from the past:04/05/17: NA 142, K 4.0, CL 107, CO2 26, GLU 111, BUN 17, CR 1.18 , TC 132, TR 221, LDL 55, HDL 33 04/05/17 NA 142, K 4.0, CL 107, CO2 26, GLU 111, BUN 17, CR 1.18 04/05/17 TC 132, TR 221, LDL 55, HDL 33 09/10/16: SOD 143, K 4.5, CL 102, CO2 30, GL 135, BUN 13, CR 1.2 03/15/16: TC 135 ,TG 285 ,HDL 31 ,LDL 47 07/19/15 SOD 144, K 4.6, CL 104, Co2 23, GLU 143, BUN 20 ,CR 1.11,HgA1c 8.1 LIPIDS: 07/19/15 : TC 161. TG 244. LDL 175. HDL 39. AST 40. ALT 61 . EK11/05/17 Sinus rhythm. Nonspecific IVCD, NSTT changes. EK10/08/17 Sinus rhythm. Nonspecific IVCD, NSTT changes. EK04/09/17 Sinus rhythm. Nonspecific IVCD, no STT changes. EK10/04/16 sinus rhythm, nonspecific IVCD, no STT changes. EKG/HOLTER: EK08/10/15 Sinus rhythm. P:. normal QRS:. normal. ST-T:. normal. conclusion normal ECG. Dobutamine Myocardial Perfusion Study 10/10/16 : Negative Dobutamine Stress test for ischemia Normal LV systolic function , No previous study to compare , LVEF 56% STRESS TEST: : 08/17/15 Positive dobutamine stress test. Normal LV systolic function. No previous study to compare. LVEF 59%. CARDIAC CATHETERIZATION: 09/06/15 PROCEDURE REPORT:Normal coronaries by angiography. ECHO: 08/17/15 The left ventricular size is normal. There is normal global left ventricular contractility. Overall left ventricular systolic function is normal with an EF 55-60%. The diastolic filling pattern indicates impaired relaxation. There is trace mitral regurgitation. Trace tricuspid regurgitation present. Trace/mild (physiologic) pulmonic regurgitation. CTA Chest: 09/10/16 No pulmonary embolism or acute cardiopulmonary abnormality although sensitivity is decreased by respiratory motion artifact. Raoul glass [place] [facility] 11/05/2017 18:41:25 02/09/2019 text/html 02/09/2019 48 years-old White Male with h/o Hypertension, Hyperlipidemia, Obstructive Sleep Apnea,and Diabetes mellitus, is here for follow-up. Pt was last time in our office more than 1 year ago. He run out of meds. Recently changed his PC. Feels bad had some headache and his BP was 189/110 when he saw his PC few days ago. Has some LE edema as well. No CP, SOB or palpitations. States that he had some sweating of hand after starting Cozaar and stopped this med. He is not sure if symptoms were related to his anxiety He had another back surgery at [facility]. He was told that his BP was low and they stopped his BP meds. After dc pt found that is BP is significantly elevated and his BP were just gradually restarted last week. Last week pt's DBP was high (100). Previously he used to have episodes of chest discomfort which was a sharp type of CP.. Oct he had lumbar surgery. He states that he had injuries to spinal cord. He does have thoracic and cervical spine problems. He had neuropathy as well as spinal stenosis. He does have urologist in [place]. He had partial kidney resection due to ca in the past. He does have kidney stones for long time. Neurologist (Dr. Nery Villanueva) at [facility]. Pt does have spinal stenosis. Had negative Myocardial Perfusion Study done in 10/10/16 with Normal LV systolic function , No previous study to compare , LVEF 56% 47 years-old White Male with h/o Hypertension, Hyperlipidemia, Obstructive Sleep Apnea,and Diabetes mellitus, is here for follow-up. Pt was last time in our offie about1 months ago. Since then he feels fine. headaches, migraine, anziety sweating cramps. States that he had some sweating of hand after starting Cozaar and stopped this med. He is not sure if symptoms were related to his anxiety or not. His BP remains well controlled. He had another back surgery at [facility]. He was told that his BP was low and they stopped his BP meds. After dc pt found that is BP is significantly elevated and his BP were just gradually restarted last week. Last week pt's DBP was high (100). Previously he used to have episodes of chest discomfort which was a sharp type of CP.. Oct he had lumbar surgery. He states that he had injuries to spinal cord. He does have thoracic and cervical spine problems. He had neuropathy as well as spinal stenosis. He does have urologist in [place]. He had partial kidney resection due to ca in the past. He does have kidney stones for long time. Neurologist (Dr. Nery Villanueva) at [facility]. Pt does have spinal stenosis. Losartan was causing seating His ortho specialist was Dr. Leong at [facility] and he did back surgery. Now because of insurance issues he may need to change his doctor. Patient was seen last time in our office on 08/31/15 and underwent cardiac cath on 09/06/15 at [facility]. He was found to have normal coronaries by angiography. Right groin healed well that Patient was not able to locate access site. Sometimes his diastolic blood pressure is elevated to about 100 mmHg diastolic. 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 Had CATH done in 09/06/15 revealed Normal coronaries by angiography . Patient does have chronic Hypertension. After pain medications his blood pressure improved. He had ECHO done in 08/17/15 showed normal Left Ventricular Systolic Function , EF 55-60% and diastolic dysfunction. Had Positive dobutamine stress test done in 08/17/15. Results from this visit, or from the past:04/05/17: NA 142, K 4.0, CL 107, CO2 26, GLU 111, BUN 17, CR 1.18 , TC 132, TR 221, LDL 55, HDL 33 04/05/17 NA 142, K 4.0, CL 107, CO2 26, GLU 111, BUN 17, CR 1.18 04/05/17 TC 132, TR 221, LDL 55, HDL 33 09/10/16: SOD 143, K 4.5, CL 102, CO2 30, GL 135, BUN 13, CR 1.2 03/15/16: TC 135 ,TG 285 ,HDL 31 ,LDL 47 07/19/15 SOD 144, K 4.6, CL 104, Co2 23, GLU 143, BUN 20 ,CR 1.11,HgA1c 8.1 LIPIDS: 07/19/15 : TC 161. TG 244. LDL 175. HDL 39. AST 40. ALT 61 . EK02/09/19 Sinus rhythm. Nonspecific IVCD, NSTT changes. EK11/05/17 Sinus rhythm. Nonspecific IVCD, NSTT changes. EK10/08/17 Sinus rhythm. Nonspecific IVCD, NSTT changes. EK04/09/17 Sinus rhythm. Nonspecific IVCD, no STT changes. EK10/04/16 sinus rhythm, nonspecific IVCD, no STT changes. EKG/HOLTER: EK08/10/15 Sinus rhythm. P:. normal QRS:. normal. ST-T:. normal. conclusion normal ECG. Dobutamine Myocardial Perfusion Study 10/10/16 : Negative Dobutamine Stress test for ischemia Normal LV systolic function , No previous study to compare , LVEF 56% STRESS TEST: : 08/17/15 Positive dobutamine stress test. Normal LV systolic function. No previous study to compare. LVEF 59%. CARDIAC CATHETERIZATION: 09/06/15 PROCEDURE REPORT:Normal coronaries by angiography. ECHO: 08/17/15 The left ventricular size is normal. There is normal global left ventricular contractility. Overall left ventricular systolic function is normal with an EF 55-60%. The diastolic filling pattern indicates impaired relaxation. There is trace mitral regurgitation. Trace tricuspid regurgitation present. Trace/mild (physiologic) pulmonic regurgitation. CTA Chest: 09/10/16 No pulmonary embolism or acute cardiopulmonary abnormality although sensitivity is decreased by respiratory motion artifact. Raoul glass [place] - [facility] 02/09/2019 17:41:55 02/02/2021 text/html 02/02/21 CC: HTN HPI: 48 years-old White Male with h/o Hypertension, Hyperlipidemia, Obstructive Sleep Apnea,and Diabetes mellitus, is here for follow-up. Pt was last time in our office 2 yrs ago. States that has multiple problems. He run out of meds. Recently changed his PC. Feels bad had some headache and his BP was 189/110 when he saw his PC few days ago. BP at home lower number is usually triple difits . Does have anxiety and neuroathy Complains for dizziness and fatigue CP occasional sharp, not related to physical activity Has some LE edema as well. No CP, SOB or palpitations. States that he had some sweating of hand after starting Cozaar and stopped this med. He is not sure if symptoms were related to his anxiety He had another back surgery at [facility]. He was told that his BP was low and they stopped his BP meds. After dc pt found that is BP is significantly elevated and his BP were just gradually restarted last week. Last week pt's DBP was high (100). Previously he used to have episodes of chest discomfort which was a sharp type of CP.. Oct he had lumbar surgery. He states that he had injuries to spinal cord. He does have thoracic and cervical spine problems. He had neuropathy as well as spinal stenosis. He does have urologist in [place]. He had partial kidney resection due to ca in the past. He does have kidney stones for long time. Neurologist (Dr. Nery Villanueva) at [facility]. Pt does have spinal stenosis. Had negative Myocardial Perfusion Study done in 10/10/16 with Normal LV systolic function , No previous study to compare , LVEF 56% 47 years-old White Male with h/o Hypertension, Hyperlipidemia, Obstructive Sleep Apnea,and Diabetes mellitus, is here for follow-up. Pt was last time in our offie about1 months ago. Since then he feels fine. headaches, migraine, anziety sweating cramps. States that he had some sweating of hand after starting Cozaar and stopped this med. He is not sure if symptoms were related to his anxiety or not. His BP remains well controlled. He had another back surgery at [facility]. He was told that his BP was low and they stopped his BP meds. After dc pt found that is BP is significantly elevated and his BP were just gradually restarted last week. Last week pt's DBP was high (100). Previously he used to have episodes of chest discomfort which was a sharp type of CP.. Oct he had lumbar surgery. He states that he had injuries to spinal cord. He does have thoracic and cervical spine problems. He had neuropathy as well as spinal stenosis. He does have urologist in [place]. He had partial kidney resection due to ca in the past. He does have kidney stones for long time. Neurologist (Dr. Nery Villanueva) at [facility]. Pt does have spinal stenosis. Losartan was causing seating His ortho specialist was Dr. Leong at [facility] and he did back surgery. Now because of insurance issues he may need to change his doctor. Patient was seen last time in our office on 08/31/15 and underwent cardiac cath on 09/06/15 at [facility]. He was found to have normal coronaries by angiography. Right groin healed well that Patient was not able to locate access site. Sometimes his diastolic blood pressure is elevated to about 100 mmHg diastolic. 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 Had CATH done in 09/06/15 revealed Normal coronaries by angiography . Patient does have chronic Hypertension. After pain medications his blood pressure improved. He had ECHO done in 08/17/15 showed normal Left Ventricular Systolic Function , EF 55-60% and diastolic dysfunction. Had Positive dobutamine stress test done in 08/17/15. Results from this visit, or from the past: 10/15/19: Na 145 , K 3.9, CL 109 ,CO2 28, GLU 190, BUN 14 ,CR 1.10, 04/05/17: NA 142, K 4.0, CL 107, CO2 26, GLU 111, BUN 17, CR 1.18 , TC 132, TR 221, LDL 55, HDL 33 04/05/17 NA 142, K 4.0, CL 107, CO2 26, GLU 111, BUN 17, CR 1.18 04/05/17 TC 132, TR 221, LDL 55, HDL 33 09/10/16: SOD 143, K 4.5, CL 102, CO2 30, GL 135, BUN 13, CR 1.2 03/15/16: TC 135 ,TG 285 ,HDL 31 ,LDL 47 07/19/15 SOD 144, K 4.6, CL 104, Co2 23, GLU 143, BUN 20 ,CR 1.11,HgA1c 8.1 LIPIDS: 07/19/15 : TC 161. TG 244. LDL 175. HDL 39. AST 40. ALT 61 . EK02/09/19 Sinus rhythm. Nonspecific IVCD, NSTT changes. EK11/05/17 Sinus rhythm. Nonspecific IVCD, NSTT changes. EK10/08/17 Sinus rhythm. Nonspecific IVCD, NSTT changes. EK04/09/17 Sinus rhythm. Nonspecific IVCD, no STT changes. EK10/04/16 sinus rhythm, nonspecific IVCD, no STT changes. EKG/HOLTER: EK08/10/15 Sinus rhythm. P:. normal QRS:. normal. ST-T:. normal. conclusion normal ECG. Dobutamine Myocardial Perfusion Study 10/10/16 : Negative Dobutamine Stress test for ischemia Normal LV systolic function , No previous study to compare , LVEF 56% STRESS TEST: : 08/17/15 Positive dobutamine stress test. Normal LV systolic function. No previous study to compare. LVEF 59%. CARDIAC CATHETERIZATION: 09/06/15 PROCEDURE REPORT:Normal coronaries by angiography. ECHO: 08/17/15 The left ventricular size is normal. There is normal global left ventricular contractility. Overall left ventricular systolic function is normal with an EF 55-60%. The diastolic filling pattern indicates impaired relaxation. There is trace mitral regurgitation. Trace tricuspid regurgitation present. Trace/mild (physiologic) pulmonic regurgitation. CTA Chest: 09/10/16 No pulmonary embolism or acute cardiopulmonary abnormality although sensitivity is decreased by respiratory motion artifact. 02/02/21 48 years-old White Male with h/o Hypertension, Hyperlipidemia, Obstructive Sleep Apnea,and Diabetes mellitus, is here for follow-up. Pt was last time in our office more than 1 year ago. He run out of meds. Recently changed his PC. Feels bad had some headache and his BP was 189/110 when he saw his PC few days ago. Has some LE edema as well. No CP, SOB or palpitations. States that he had some sweating of hand after starting Cozaar and stopped this med. He is not sure if symptoms were related to his anxiety He had another back surgery at [facility]. He was told that his BP was low and they stopped his BP meds. After dc pt found that is BP is significantly elevated and his BP were just gradually restarted last week. Last week pt's DBP was high (100). Previously he used to have episodes of chest discomfort which was a sharp type of CP.. Oct he had lumbar surgery. He states that he had injuries to spinal cord. He does have thoracic and cervical spine problems. He had neuropathy as well as spinal stenosis. He does have urologist in [place]. He had partial kidney resection due to ca in the past. He does have kidney stones for long time. Neurologist (Dr. Nery Villanueva) at [facility]. Pt does have spinal stenosis. Had negative Myocardial Perfusion Study done in 10/10/16 with Normal LV systolic function , No previous study to compare , LVEF 56% 47 years-old White Male with h/o Hypertension, Hyperlipidemia, Obstructive Sleep Apnea,and Diabetes mellitus, is here for follow-up. Pt was last time in our offie about1 months ago. Since then he feels fine. headaches, migraine, anziety sweating cramps. States that he had some sweating of hand after starting Cozaar and stopped this med. He is not sure if symptoms were related to his anxiety or not. His BP remains well controlled. He had another back surgery at [facility]. He was told that his BP was low and they stopped his BP meds. After dc pt found that is BP is significantly elevated and his BP were just gradually restarted last week. Last week pt's DBP was high (100). Previously he used to have episodes of chest discomfort which was a sharp type of CP.. Oct he had lumbar surgery. He states that he had injuries to spinal cord. He does have thoracic and cervical spine problems. He had neuropathy as well as spinal stenosis. He does have urologist in [place]. He had partial kidney resection due to ca in the past. He does have kidney stones for long time. Neurologist (Dr. Nery Villanueva) at [facility]. Pt does have spinal stenosis. Losartan was causing seating His ortho specialist was Dr. Leong at [facility] and he did back surgery. Now because of insurance issues he may need to change his doctor. Patient was seen last time in our office on 08/31/15 and underwent cardiac cath on 09/06/15 at [facility]. He was found to have normal coronaries by angiography. Right groin healed well that Patient was not able to locate access site. Sometimes his diastolic blood pressure is elevated to about 100 mmHg diastolic. 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 Had CATH done in 09/06/15 revealed Normal coronaries by angiography . Patient does have chronic Hypertension. After pain medications his blood pressure improved. He had ECHO done in 08/17/15 showed normal Left Ventricular Systolic Function , EF 55-60% and diastolic dysfunction. Had Positive dobutamine stress test done in 08/17/15. Results from this visit, or from the past: 10/15/19: Na 145 , K 3.9, CL 109 ,CO2 28, GLU 190, BUN 14 ,CR 1.10, 04/05/17: NA 142, K 4.0, CL 107, CO2 26, GLU 111, BUN 17, CR 1.18 , TC 132, TR 221, LDL 55, HDL 33 04/05/17 NA 142, K 4.0, CL 107, CO2 26, GLU 111, BUN 17, CR 1.18 04/05/17 TC 132, TR 221, LDL 55, HDL 33 09/10/16: SOD 143, K 4.5, CL 102, CO2 30, GL 135, BUN 13, CR 1.2 03/15/16: TC 135 ,TG 285 ,HDL 31 ,LDL 47 07/19/15 SOD 144, K 4.6, CL 104, Co2 23, GLU 143, BUN 20 ,CR 1.11,HgA1c 8.1 LIPIDS: 07/19/15 : TC 161. TG 244. LDL 175. HDL 39. AST 40. ALT 61 . EK02/02/21 Sinus rhythm. Nonspecific IVCD, NSTT changes. EK02/09/19 Sinus rhythm. Nonspecific IVCD, NSTT changes. EK11/05/17 Sinus rhythm. Nonspecific IVCD, NSTT changes. EK10/08/17 Sinus rhythm. Nonspecific IVCD, NSTT changes. EK04/09/17 Sinus rhythm. Nonspecific IVCD, no STT changes. EK10/04/16 sinus rhythm, nonspecific IVCD, no STT changes. EKG/HOLTER: EK08/10/15 Sinus rhythm. P:. normal QRS:. normal. ST-T:. normal. conclusion normal ECG. Dobutamine Myocardial Perfusion Study 10/10/16 : Negative Dobutamine Stress test for ischemia Normal LV systolic function , No previous study to compare , LVEF 56% STRESS TEST: : 08/17/15 Positive dobutamine stress test. Normal LV systolic function. No previous study to compare. LVEF 59%. CARDIAC CATHETERIZATION: 09/06/15 PROCEDURE REPORT:Normal coronaries by angiography. ECHO: 08/17/15 The left ventricular size is normal. There is normal global left ventricular contractility. Overall left ventricular systolic function is normal with an EF 55-60%. The diastolic filling pattern indicates impaired relaxation. There is trace mitral regurgitation. Trace tricuspid regurgitation present. Trace/mild (physiologic) pulmonic regurgitation. CTA Chest: 09/10/16 No pulmonary embolism or acute cardiopulmonary abnormality although sensitivity is decreased by respiratory motion artifact. Raoul glass, [place] - [facility] 02/02/2021 13:54:22 03/09/2021 text/html 03/09/21 CC: HTN fu HPI: 50 years-old White Male with h/o Hypertension, Hyperlipidemia, Obstructive Sleep Apnea,and Diabetes mellitus, is here for follow-up. Had ECHO done in 02/20/21 showed LV chamber size is normal,LV wall thickness is mildly increased,The estimated LVEF is 60-65%(normal),E to A mitral inflow reversed is consistent with poosible diastolic dysfunction,there is borderline left atrial enlargement.there is mild aortic valve stenosis without significant stenosis,there is mild thickening of the mitral valve anterior leaflet,there is trace tricuspid regurgitation. Had negative stress test done in 02/09/21 with normal LV systolic function, EF 54% . 02/03/21 LIPID PANEL TC 197, HDL 33, TR 247, LDL 124 Pt was last time in our office 2 yrs ago. BP not checked, states that is much better controlled Previously States that has multiple problems. He run out of meds. Recently changed his PC. Feels bad had some headache and his BP was 189/110 when he saw his PC few days ago. BP at home lower number is usually triple difits . Does have anxiety and neuroathy Complains for dizziness and fatigue CP occasional sharp, not related to physical activity Has some LE edema as well. No CP, SOB or palpitations. States that he had some sweating of hand after starting Cozaar and stopped this med. He is not sure if symptoms were related to his anxiety He had another back surgery at [facility]. He was told that his BP was low and they stopped his BP meds. After dc pt found that is BP is significantly elevated and his BP were just gradually restarted last week. Last week pt's DBP was high (100). Previously he used to have episodes of chest discomfort which was a sharp type of CP.. Oct he had lumbar surgery. He states that he had injuries to spinal cord. He does have thoracic and cervical spine problems. He had neuropathy as well as spinal stenosis. He does have urologist in [place]. He had partial kidney resection due to ca in the past. He does have kidney stones for long time. Neurologist (Dr. Nery Villanueva) at [facility]. Pt does have spinal stenosis. Had negative Myocardial Perfusion Study done in 10/10/16 with Normal LV systolic function , No previous study to compare , LVEF 56% 47 years-old White Male with h/o Hypertension, Hyperlipidemia, Obstructive Sleep Apnea,and Diabetes mellitus, is here for follow-up. Pt was last time in our offie about1 months ago. Since then he feels fine. headaches, migraine, anziety sweating cramps. States that he had some sweating of hand after starting Cozaar and stopped this med. He is not sure if symptoms were related to his anxiety or not. His BP remains well controlled. He had another back surgery at [facility]. He was told that his BP was low and they stopped his BP meds. After dc pt found that is BP is significantly elevated and his BP were just gradually restarted last week. Last week pt's DBP was high (100). Previously he used to have episodes of chest discomfort which was a sharp type of CP.. Oct he had lumbar surgery. He states that he had injuries to spinal cord. He does have thoracic and cervical spine problems. He had neuropathy as well as spinal stenosis. He does have urologist in [place]. He had partial kidney resection due to ca in the past. He does have kidney stones for long time. Neurologist (Dr. Nery Villanueva) at [facility]. Pt does have spinal stenosis. Losartan was causing seating His ortho specialist was Dr. Leong at [facility] and he did back surgery. Now because of insurance issues he may need to change his doctor. Patient was seen last time in our office on 08/31/15 and underwent cardiac cath on 09/06/15 at [facility]. He was found to have normal coronaries by angiography. Right groin healed well that Patient was not able to locate access site. Sometimes his diastolic blood pressure is elevated to about 100 mmHg diastolic. 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 Had CATH done in 09/06/15 revealed Normal coronaries by angiography . Patient does have chronic Hypertension. After pain medications his blood pressure improved. He had ECHO done in 08/17/15 showed normal Left Ventricular Systolic Function , EF 55-60% and diastolic dysfunction. Had Positive dobutamine stress test done in 08/17/15. Results from this visit, or from the past: 02/03/21 LIPID PANEL TC 197, HDL 33, TR 247, LDL 124 02/03/21 BMP BUN 20, CR 1.13, NA143, K 4.5, CH 105, C02 30, MG 2.1 10/15/19: Na 145 , K 3.9, CL 109 ,CO2 28, GLU 190, BUN 14 ,CR 1.10, 04/05/17: NA 142, K 4.0, CL 107, CO2 26, GLU 111, BUN 17, CR 1.18 , TC 132, TR 221, LDL 55, HDL 33 04/05/17 NA 142, K 4.0, CL 107, CO2 26, GLU 111, BUN 17, CR 1.18 04/05/17 TC 132, TR 221, LDL 55, HDL 33 09/10/16: SOD 143, K 4.5, CL 102, CO2 30, GL 135, BUN 13, CR 1.2 03/15/16: TC 135 ,TG 285 ,HDL 31 ,LDL 47 07/19/15 SOD 144, K 4.6, CL 104, Co2 23, GLU 143, BUN 20 ,CR 1.11,HgA1c 8.1 LIPIDS: 07/19/15 : TC 161. TG 244. LDL 175. HDL 39. AST 40. ALT 61 . 02/02/21 EKG: LVH. NSR. Nonspecific IVCD. NSST. EK02/09/19 Sinus rhythm. Nonspecific IVCD, NSTT changes. EK11/05/17 Sinus rhythm. Nonspecific IVCD, NSTT changes. EK10/08/17 Sinus rhythm. Nonspecific IVCD, NSTT changes. EK04/09/17 Sinus rhythm. Nonspecific IVCD, no STT changes. EK10/04/16 sinus rhythm, nonspecific IVCD, no STT changes. EKG/HOLTER: EK08/10/15 Sinus rhythm. P:. normal QRS:. normal. ST-T:. normal. conclusion normal ECG. ECHO 02/20/21:LV chamber size is normal,LV wall thickness is mildly increased,The estimated LVEF is 60-65%(normal),E to A mitral inflow reversed is consistent with poosible diastolic dysfunction,there is borderline left atrial enlargement.there is mild aortic valve stenosis without significant stenosis,there is mild thickening of the mitral valve anterior leaflet,there is trace tricuspid regurgitation. 02/09/21 ROSLYN: Adequate Stress with Lexiscan. Negative Lexiscan stress test for ischemia. Normal LV systolic function. LVEF 54% Dobutamine Myocardial Perfusion Study 10/10/16 : Negative Dobutamine Stress test for ischemia Normal LV systolic function , No previous study to compare , LVEF 56% STRESS TEST: : 08/17/15 Positive dobutamine stress test. Normal LV systolic function. No previous study to compare. LVEF 59%. CARDIAC CATHETERIZATION: 09/06/15 PROCEDURE REPORT:Normal coronaries by angiography. ECHO: 08/17/15 The left ventricular size is normal. There is normal global left ventricular contractility. Overall left ventricular systolic function is normal with an EF 55-60%. The diastolic filling pattern indicates impaired relaxation. There is trace mitral regurgitation. Trace tricuspid regurgitation present. Trace/mild (physiologic) pulmonic regurgitation. CTA Chest: 09/10/16 No pulmonary embolism or acute cardiopulmonary abnormality although sensitivity is decreased by respiratory motion artifact. Raoul Nguyen [facility], [place] - [facility] 03/09/2021 14:58:31
--- OUTSIDE RECORDS SUMMARY | 2025-01-18 22:15 | XMS_ITS | Referral Summary ---
Author Organization [address] Address [address] [place] [id number] Care Team Providers Care Stubber Name Role Phone Rob Perales MD Primary Care Provider Encounters Date Type Department Care Team Description 12/04/2024 Telephone [facility] Nephrology at [address] [place] [phone] Kenneth Crowe MD 10/27/2024 Orders Only [facility] Neurology [address] [place] [phone] Esvin Means Si, MD 10/26/2024 Telephone [facility] Neurology [address] [place] [phone] Lenard Smith MD Medication Problem 10/19/2024 Telephone [facility] Neurology [address] [place] [phone] Lenard Smith MD from Last 3 Months Allergies No known active allergies Medications carvediloL [...] needed, Indications: Urolithiasis, Reported on 09/03/2024 omega 5-rlr-gtf-fish oil (Fish OiL) 1,000 mg (120 mg-180 [...] Cell Type Gr II, 4.3 cm, (-)margins Social History Tobacco Use Types Packs/Day Years [...] on file Legal Sex Male 9:59 AM [employer] Gender Identity Male 03/24/2024 2:50 PM CDT Sexual Orientation Straight 03/24/2024 2: 50 PM CDT Last Filed Vital Signs Vital Sign Reading [...] 09/03/2024 10:45 AM CDT Plan of Treatment Not on file Insurance [facility] Care Teams Stubber Relationship Specialty Start Date End Date Rob Perales MD PCP - General Internal Medicine 03/03/24
== END 2025-01-19 00:13 | disposition left against medical advice (07) ==
LOC: ANHED 22:13
PROVIDERS: PCP Internal Medicine
DX: I10 Essential (primary) hypertension (principal)
CPT/HCPCS: 99199